=== PATIENT | female | born 1970 | race American Indian/Alaskan Native ===

== ENCOUNTER 2017-02-27 20:31 | Emergency (ER) | payer MEDICAID ==
[2017-02-27] MEDS ORDERED: MORPHINE IV ONE (23:17)
[2017-02-27] MEDS ORDERED: ZOFRAN IV ONE (23:18)
[2017-02-27 23:23] LABS: Hematocrit 40.5 % (30.3-42.9); Hemoglobin 13.6 gm/dl (10.1-14.3); Mean Corpuscular HGB Conc 34 % (30-34); Mean Corpuscular Hemoglobin 32 pg (28-32); Mean Corpuscular Volume 96 fl (79-97); Platelet Count 213 K/mm3 (140-440); Red Blood Count 4.21 M/mm3 (3.65-5.03); Red Cell Distribution Width 13.2 % (13.2-15.2); White Blood Count 4.6 K/mm3 (4.5-11.0)
--- NOTE | 2017-02-27 23:28 | Emergency Department Report ---
ED Neck Pain/Injury HPI - General Chief Complaint: Neck Pain/Injury Stated Complaint: NECK/BACK PAIN, NAUSEA AND VOMITING Time Seen by Provider: 02/27/17 23:09 Mode of arrival: Ambulatory Limitations: No Limitations - History of Present Illness Initial Comments: 47-year-old female with a past medical history CHF EF 15-20%, CVA, CAD with stent placement, defibrillator 2009, and hypertension presents to the hospital complains of neck, back pain, nausea, and vomiting since 6:00 this a.m. Patient woke up with these symptoms. Pain is at the right posterior neck and extends down to the right posterior thorax and right side of back. Pain is constant, sharp and pressure-like. Worse with movement and palpation. 10/10 intensity. No alleviating factors. Patient has taken Tylenol for pain without significant relief. The pain is severe she has associated nausea and vomiting. She does have some episodes of feeling like the room is spinning. No complaints of focal weakness, numbness, or headache. - Related Data Home Medications Medication Instructions Recorded Confirmed Last Taken Aspirin [Aspirin TAB] 325 mg PO DAILY 02/23/14 05/15/16 07/25/15 325 MG Clopidogrel Bisulfate [Plavix] 75 mg PO DAILY 02/23/14 05/15/16 07/25/15 75 MG Isosorbide Mononitrate 60 mg PO BID 02/23/14 05/15/16 07/25/15 60 MG Potassium Chloride 10 meq PO BID 02/23/14 05/15/16 07/25/15 10 MEQ Losartan [Cozaar] 50 mg PO QDAY 07/06/14 05/15/16 07/25/15 50 MG Previous Rx's Medication Instructions Recorded Last Taken Type AtorvaSTATin [Lipitor] 40 mg PO QHS #30 tablet 07/27/15 Unknown Rx Carvedilol [Coreg] 3.125 mg PO BID #60 tablet 07/27/15 Unknown Rx Cyanocobalamin/Folic Acid [B-12 1 each SL QDAY #30 tab.subl 07/27/15 Unknown Rx 1,000 Mcg Sub Tablet] Folic Acid [Folvite] 1 mg PO QDAY #30 tablet 07/27/15 Unknown Rx Tramadol HCl/Acetaminophen 1 each PO Q6H PRN #15 tablet 07/27/15 Unknown Rx [Ultracet] HYDROcodone/APAP 5-325 [[place] 1 each PO Q6HR PRN #15 tablet 08/31/15 Unknown Rx 5/325] Dicyclomine [Bentyl] 10 mg PO QID PRN #20 capsule 05/16/16 Unknown Rx Potassium Chloride [Klor-Con] 20 meq PO QDAY #10 packet 05/16/16 Unknown Rx Ondansetron [Zofran Odt] 4 mg PO QID PRN #20 tab.rapdis 02/28/17 Unknown Rx methOCARBAMOL [Robaxin TAB] 500 mg PO BID PRN #20 tab 02/28/17 Unknown Rx oxyCODONE /ACETAMINOPHEN [Percocet 1 tab PO Q6HR PRN #20 tablet 02/28/17 Unknown Rx 5/325] Allergies Allergy/AdvReac Type Severity Reaction Status Date / Time No Known Allergies Allergy Verified 07/06/14 09:55 ED Review of Systems ROS: Stated complaint: NECK/BACK PAIN, NAUSEA AND VOMITING Other details as noted in HPI Comment: All other systems reviewed and negative Other: Constitutional: No fevers chills Eyes: No eye pain visual changes ENT: No ear pain or throat pain Neck: As per HPI Respiratory: Denies cough wheezing shortness of breath Cardiovascular: Denies chest pain, palpitations, syncope GI: Denies abdominal pain, diarrhea : Denies dysuria Musculoskeletal: As per HPI Skin: Denies rash, lesions, erythema Neurologic: Denies headache, numbness, weakness Psychiatric: Denies suicidal ideation, hallucinations ED Past Medical Hx - Past Medical History Hx Hypertension: Yes (EF 15-20%) Hx CVA: Yes (2014, no deficits) Hx Heart Attack/AMI: Yes Hx Congestive Heart Failure: Yes Hx Renal Disease: No Hx Asthma: No Hx COPD: No - Surgical History Hx Pacemaker: Yes Hx Internal Defibrillator: Yes Additional Surgical History: stent x 1, placed in 2008. Defribrilator - Social History Smoking Status: Never Smoker Substance Use Type: None - Medications Home Medications: Home Medications Medication Instructions Recorded Confirmed Last Taken Type Aspirin [Aspirin TAB] 325 mg PO DAILY 02/23/14 05/15/16 07/25/15 History 325 MG Clopidogrel Bisulfate [Plavix] 75 mg PO DAILY 02/23/14 05/15/16 07/25/15 History 75 MG Isosorbide Mononitrate 60 mg PO BID 04/07/3105/15/16 07/25/15 History 60 MG Potassium Chloride 10 meq PO BID 02/23/14 05/15/16 07/25/15 History 10 MEQ Losartan [Cozaar] 50 mg PO QDAY 07/06/14 05/15/16 07/25/15 History 50 MG AtorvaSTATin [Lipitor] 40 mg PO QHS #30 tablet 07/27/15 05/15/16 Unknown Rx Carvedilol [Coreg] 3.125 mg PO BID #60 tablet 07/27/15 05/15/16 Unknown Rx Cyanocobalamin/Folic Acid [B-12 1 each SL QDAY #30 tab.subl 07/27/15 05/15/16 Unknown Rx 1,000 Mcg Sub Tablet] Folic Acid [Folvite] 1 mg PO QDAY #30 tablet 07/27/15 05/15/16 Unknown Rx Tramadol HCl/Acetaminophen 1 each PO Q6H PRN #15 tablet 07/27/15 05/15/16 Unknown Rx [Ultracet] HYDROcodone/APAP 5-325 [[place] 1 each PO Q6HR PRN #15 tablet 08/31/15 05/15/16 Unknown Rx 5/325] Dicyclomine [Bentyl] 10 mg PO QID PRN #20 capsule 05/16/16 Unknown Rx Potassium Chloride [Klor-Con] 20 meq PO QDAY #10 packet 05/16/16 Unknown Rx Ondansetron [Zofran Odt] 4 mg PO QID PRN #20 tab.rapdis 02/28/17 Unknown Rx methOCARBAMOL [Robaxin TAB] 500 mg PO BID PRN #20 tab 02/28/17 Unknown Rx oxyCODONE /ACETAMINOPHEN [Percocet 1 tab PO Q6HR PRN #20 tablet 02/28/17 Unknown Rx 5/325] ED Physical Exam - General Limitations: No Limitations - Other Other exam information: General: No limitations, patient is alert in no acute distress Head exam: Atraumatic, normocephalic Eyes exam: Normal appearance, no nystagmus ENT: Moist mucous membrane Neck exam: Tenderness to the right posterior neck muscles/trapezius extending down to the shoulder. Also tenderness along right posterior thorax and paracervical lumbar spinous muscles. Neck pain worse with movement Respiratory exam: Clear to auscultation bilateral, no wheezes, rales, crackles Cardiovascular: Normal rate and rhythm, normal heart sounds Abdomen: Soft, nondistended, and nontender, with normal bowel sounds, no rebound, or guarding Extremity: Full range of motion normal inspection no deformity Back: Normal Inspection, full range of motion, see neck exam Neurologic: Alert, oriented x3, cranial nerves intact, no motor or sensory deficit, [id number] function intact Psychiatric: normal affect, normal mood Skin: Warm, dry, intact ED Course Vital Signs 02/27/17 02/28/17 02/28/17 22:11 00:25 02:24 Temperature 98.2 F 98.1 F Pulse Rate 82 74 Respiratory 20 20 20 Rate Blood Pressure 137/95 Blood Pressure 137/95 139/86 [Left] O2 Sat by Pulse 99 100 100 Oximetry - Reevaluation(s) Reevaluation #1: 02/28/17 04:27 Patient initially received morphine, and Zofran with minimal improvement in pain. Pain fairly improved after receiving Dilaudid 1 mg 02/28/17 04:27 ED Medical Decision Making - Lab Data Result diagrams: 02/27/17 22:48 02/27/17 22:48 Lab Results 02/27/17 02/27/17 02/27/17 Range/Units 22:48 22:48 23:10 WBC 4.6 (4.5-11.0) K/mm3 RBC 4.21 (3.65-5.03) M/mm3 Hgb 13.6 (10.1-14.3) gm/dl Hct 40.5 (30.3-42.9) % MCV 96 (79-97) fl MCH 32 (28-32) pg MCHC 34 (30-34) % RDW 13.2 (13.2-15.2) % Plt Count 213 (140-440) K/mm3 Lymph % (Auto) Project Management Add Manual Diff Complete Total Counted 100 Seg Neutrophils % Project Management Seg Neuts % (Manual) 33.0 L (40.0-70.0) % Band Neutrophils % 3.0 % Lymphocytes % (Manual) 51.0 H (13.4-35.0) % Reactive Lymphs % (Man) 0 % Monocytes % (Manual) 7.0 (0.0-7.3) % Eosinophils % (Manual) 4.0 (0.0-4.3) % Basophils % (Manual) 0 (0.0-1.8) % Metamyelocytes % 2.0 % Myelocytes % 0 % Promyelocytes % 0 % Blast Cells % 0 % Nucleated RBC % Not Reportable Seg Neutrophils # Man 1.5 L (1.8-7.7) K/mm3 Band Neutrophils # 0.1 K/mm3 Lymphocytes # (Manual) 2.3 (1.2-5.4) K/mm3 Abs React Lymphs (Man) 0.0 K/mm3 Monocytes # (Manual) 0.3 (0.0-0.8) K/mm3 Eosinophils # (Manual) 0.2 (0.0-0.4) K/mm3 Basophils # (Manual) 0.0 (0.0-0.1) K/mm3 Metamyelocytes # 0.1 K/mm3 Myelocytes # 0.0 K/mm3 Promyelocytes # 0.0 K/mm3 Blast Cells # 0.0 K/mm3 WBC Morphology Not Reportable Hypersegmented Neuts Not Reportable Hyposegmented Neuts Not Reportable Hypogranular Neuts Not Reportable Smudge Cells Not Reportable Toxic Granulation Not Reportable Toxic Vacuolation Not Reportable Dohle Bodies Not Reportable Pelger-Huet Anomaly Not Reportable Federico Rods Not Reportable Platelet Estimate Appears normal Clumped Platelets Not Reportable Plt Clumps, EDTA Not Reportable Large Platelets Not Reportable Giant Platelets Not Reportable Platelet Satelliting Not Reportable Plt Morphology Comment Not Reportable RBC Morphology Not Reportable Dimorphic RBCs Not Reportable Polychromasia Not Reportable Hypochromasia Rare Poikilocytosis Not Reportable Anisocytosis Not Reportable Microcytosis Not Reportable Macrocytosis Not Reportable Spherocytes Not Reportable Pappenheimer Bodies Not Reportable Sickle Cells Not Reportable Target Cells Not Reportable Tear Drop Cells Not Reportable Ovalocytes Not Reportable Helmet Cells Not Reportable Jean-Knox Bodies Not Reportable [place] Rings Not Reportable Glenna Cells Not Reportable Bite Cells Not Reportable Crenated Cell Not Reportable Elliptocytes Not Reportable Acanthocytes (Spur) Not Reportable Rouleaux Not Reportable Hemoglobin C Crystals Not Reportable Schistocytes Not Reportable Malaria parasites Not Reportable Cornelio Bodies Not Reportable Hem Pathologist Commnt No Sodium 138 (137-145) mmol/L Potassium 3.7 (3.6-5.0) mmol/L Chloride 104.3 (98-107) mmol/L Carbon Dioxide 23 (22-30) mmol/L Anion Gap 14 mmol/L BUN 7 (7-17) mg/dL Creatinine 0.7 (0.7-1.2) mg/dL Estimated GFR > 60 ml/min BUN/Creatinine Ratio 10.00 % Glucose 93 (65-100) mg/dL Calcium 8.9 (8.4-10.2) mg/dL Total Bilirubin < 0.2 (0.1-1.2) mg/dL Direct Bilirubin < 0.2 (0-0.2) mg/dL Indirect Bilirubin 0.0 mg/dL AST 13 (5-40) units/L ALT 8 (7-56) units/L Alkaline Phosphatase 69 (35-129) units/L Troponin T < 0.010 (0.00-0.029) ng/mL Total Protein 6.6 (6.3-8.2) g/dL Albumin 3.5 L (3.9-5) g/dL Albumin/Globulin Ratio 1.1 % Lipase 27 (13-60) units/L Urine Color (Yellow) Urine Turbidity (Clear) Urine pH (5.0-7.0) Urine Protein (Negative) mg/dL Urine Glucose (UA) (Negative) mg/dL Urine Ketones (Negative) mg/dL Urine Blood (Negative) Urine Nitrite (Negative) Ur Reducing Substances Urine Bilirubin (Negative) Urine Ictotest Urine Urobilinogen (<2.0) mg/dL Ur Leukocyte Esterase (Negative) Urine WBC (Auto) (0.0-6.0) /HPF Urine RBC (Auto) (0.0-6.0) /HPF U Epithel Cells (Auto) (0-13.0) /HPF Urine Mucus /HPF Urine HCG, Qual (Negative) 02/28/17 02/28/17 Range/Units 02:50 03:40 WBC (4.5-11.0) K/mm3 RBC (3.65-5.03) M/mm3 Hgb (10.1-14.3) gm/dl Hct (30.3-42.9) % MCV (79-97) fl MCH (28-32) pg MCHC (30-34) % RDW (13.2-15.2) % Plt Count (140-440) K/mm3 Lymph % (Auto) Add Manual Diff Total Counted Seg Neutrophils % Seg Neuts % (Manual) (40.0-70.0) % Band Neutrophils % % Lymphocytes % (Manual) (13.4-35.0) % Reactive Lymphs % (Man) % Monocytes % (Manual) (0.0-7.3) % Eosinophils % (Manual) (0.0-4.3) % Basophils % (Manual) (0.0-1.8) % Metamyelocytes % % Myelocytes % % Promyelocytes % % Blast Cells % % Nucleated RBC % Seg Neutrophils # Man (1.8-7.7) K/mm3 Band Neutrophils # K/mm3 Lymphocytes # (Manual) (1.2-5.4) K/mm3 Abs React Lymphs (Man) K/mm3 Monocytes # (Manual) (0.0-0.8) K/mm3 Eosinophils # (Manual) (0.0-0.4) K/mm3 Basophils # (Manual) (0.0-0.1) K/mm3 Metamyelocytes # K/mm3 Myelocytes # K/mm3 Promyelocytes # K/mm3 Blast Cells # K/mm3 WBC Morphology Hypersegmented Neuts Hyposegmented Neuts Hypogranular Neuts Smudge Cells Toxic Granulation Toxic Vacuolation Dohle Bodies Pelger-Huet Anomaly Federico Rods Platelet Estimate Clumped Platelets Plt Clumps, EDTA Large Platelets Giant Platelets Platelet Satelliting Plt Morphology Comment RBC Morphology Dimorphic RBCs Polychromasia Hypochromasia Poikilocytosis Anisocytosis Microcytosis Macrocytosis Spherocytes Pappenheimer Bodies Sickle Cells Target Cells Tear Drop Cells Ovalocytes Helmet Cells Jean-Knox Bodies [place] Rings Glenna Cells Bite Cells Crenated Cell Elliptocytes Acanthocytes (Spur) Rouleaux Hemoglobin C Crystals Schistocytes Malaria parasites Cornelio Bodies Hem Pathologist Commnt Sodium (137-145) mmol/L Potassium (3.6-5.0) mmol/L Chloride (98-107) mmol/L Carbon Dioxide (22-30) mmol/L Anion Gap mmol/L BUN (7-17) mg/dL Creatinine (0.7-1.2) mg/dL Estimated GFR ml/min BUN/Creatinine Ratio % Glucose (65-100) mg/dL Calcium (8.4-10.2) mg/dL Total Bilirubin (0.1-1.2) mg/dL Direct Bilirubin (0-0.2) mg/dL Indirect Bilirubin mg/dL AST (5-40) units/L ALT (7-56) units/L Alkaline Phosphatase (35-129) units/L Troponin T < 0.010 (0.00-0.029) ng/mL Total Protein (6.3-8.2) g/dL Albumin (3.9-5) g/dL Albumin/Globulin Ratio % Lipase (13-60) units/L Urine Color Yellow (Yellow) Urine Turbidity Clear (Clear) Urine pH 5.0 (5.0-7.0) Urine Protein <15 mg/dl (Negative) mg/dL Urine Glucose (UA) Neg (Negative) mg/dL Urine Ketones Neg (Negative) mg/dL Urine Blood Mod (Negative) Urine Nitrite Neg (Negative) Ur Reducing Substances Not Reportable Urine Bilirubin Neg (Negative) Urine Ictotest Not Reportable Urine Urobilinogen < 2.0 (<2.0) mg/dL Ur Leukocyte Esterase Neg (Negative) Urine WBC (Auto) 2.0 (0.0-6.0) /HPF Urine RBC (Auto) 28.0 (0.0-6.0) /HPF U Epithel Cells (Auto) 3.0 (0-13.0) /HPF Urine Mucus Few /HPF Urine HCG, Qual Negative (Negative) - EKG Data -: EKG Interpreted by Me (sinus rhythm 80 septal infarct, no ST elevation or T- wave inversions) - EKG Data When compared to previous EKG there are: no significant change (compared to 02/2013) - Radiology Data Radiology results: report reviewed CT head non-contrast: No acute findings A CT angiogram head: No acute findings CT angiogram neck: No acute findings chest x-ray: Pacemaker/defibrillator, no acute findings read by me - Medical Decision Making I highly suspect the patient's pain is musculoskeletal in origin since it is right sided along the right lateral neck, right sided posterior thoracic chest, and right sided back. Symptoms appear to be reproducible with movement and palpation. No signs of carotid dissection or CVA. Patient has some blood in her urine but is currently on her menstrual cycle. No signs of infection. Patient given a copy of her CAT scan results per her request - Differential Diagnosis musculoskeletal injury, dissection, renal colic, vertigo, Critical Care Time: No Critical care attestation.: If time is entered above; I have spent that time in minutes in the direct care of this critically ill patient, excluding procedure time. ED Disposition Clinical Impression: Neck muscle strain Qualifiers: Encounter type: initial encounter Qualified Code(s): S16.1XXA - Strain of muscle, fascia and tendon at neck level, initial encounter Back strain Qualifiers: Encounter type: initial encounter Qualified Code(s): S39.012A - Strain of muscle, fascia and tendon of lower back, initial encounter Vomiting Qualifiers: Vomiting type: unspecified Vomiting Intractability: non-intractable Nausea presence: with nausea Qualified Code(s): R11.2 - Nausea with vomiting, unspecified Disposition: DISCHARGED TO HOME OR SELFCARE Is pt being admited?: No Does the pt Need Aspirin: No Condition: Stable Instructions: Cervical Sprain (ED), Back Pain (ED) Additional Instructions: Take the pain medication and muscle relaxants as prescribed. You cannot drive or operate heavy machinery while Percocet or Robaxin cause both these medications may cause drowsiness. Follow-up with your doctor. Return if symptoms worsen. Prescriptions: methOCARBAMOL [Robaxin TAB] 500 mg PO BID PRN #20 tab PRN Reason: Muscle Spasm Ondansetron [Zofran Odt] 4 mg PO QID PRN #20 tab.rapdis PRN Reason: Nausea oxyCODONE /ACETAMINOPHEN [Percocet 5/325] 1 tab PO Q6HR PRN #20 tablet PRN Reason: Pain Referrals: PRIMARY CARE, [Primary Care Provider] - 2-3 Days Time of Disposition: 04:34
[2017-02-27 23:35] LABS: Anion Gap 14 mmol/L; Blood Urea Nitrogen 7 mg/dL (7-17); Calcium 8.9 mg/dL (8.4-10.2); Carbon Dioxide 23 mmol/L (22-30); Chloride 104.3 mmol/L (98-107); Glucose 93 mg/dL (65-100); Potassium 3.7 mmol/L (3.6-5.0); Sodium 138 mmol/L (137-145)
[2017-02-27 23:46] LABS: Alanine Aminotransferase 8 units/L (7-56); Albumin 3.5 g/dL (3.9-5); Albumin/Globulin Ratio 1.1 %; Alkaline Phosphatase 69 units/L (35-129); Bilirubin,Total < 0.2 mg/dL (0.1-1.2); Lipase 27 units/L (13-60); Total Protein 6.6 g/dL (6.3-8.2)
[2017-02-27 23:49] LABS: Bilirubin,Direct < 0.2 mg/dL (0-0.2)
[2017-02-28 00:21] LABS: Basophils % (Manual) 0 % (0.0-1.8); Blastocytes % (Manual) 0 %
[2017-02-28 00:22] LABS: Diff Status Complete; Hypochromasia Rare
[2017-02-28] MEDS ORDERED: NACL ONE (00:29)
--- NOTE | 2017-02-28 01:43 | Cat Scan Report ---
FINAL REPORT PROCEDURE: CT HEAD/BRAIN WO CON TECHNIQUE: Computerized tomography of the head was performed without contrast material. HISTORY: neck pain, vomiting, dizziness hx cva 2014 COMPARISON: 07/25/2010 FINDINGS: Skull and scalp: Normal. Paranasal sinuses: Normal. Ventricles and subarachnoid spaces: Normal. Cerebrum: No evidence of hemorrhage, acute infarction or mass . Cerebellum and brainstem: No evidence of hemorrhage, acute infarction or mass. Vasculature: Normal. Comments: None. IMPRESSION: Normal Examination
[2017-02-28 02:26] VITALS: BP 139/86
--- NOTE | 2017-02-28 02:27 | Cat Scan Report ---
FINAL REPORT PROCEDURE: CT ANGIO HEAD TECHNIQUE: Computerized tomographic angiography of the head was performed after the IV injection of iodinated nonionic contrast including image processing. The image data was postprocessed using 2-dimensional multiplanar reformatted (MPR) and 3-dimensional (MIP and/or volume rendered) techniques. HISTORY: neck pain, vomiting, dizziness COMPARISON: CT of the head dated 02/28/2016 FINDINGS: Cerebrum: No evidence of hemorrhage, acute ischemia or mass. Cerebellum: No evidence of hemorrhage, acute ischemia or mass. Subarachnoid spaces and ventricles: Normal. Intracranial vessels: Carotid siphon: Normal. Anterior cerebral: Normal. Middle cerebral: Normal. Posterior cerebral:Normal. Vertebral arteries including basilar: Normal. Aneurysms: None. Dural sinuses: Normal. IMPRESSION: There is no intracranial arterial stenosis, thrombosis, dissection or aneurysm. There is no vascular malformation. The dural sinuses are patent.
--- NOTE | 2017-02-28 02:29 | Cat Scan Report ---
FINAL REPORT PROCEDURE: CT ANGIO NECK TECHNIQUE: Computerized tomographic angiography of the neck was performed after the IV injection of iodinated nonionic contrast including image processing. The image data was postprocessed using 2-dimensional multiplanar reformatted (MPR) and 3-dimensional (MIP and/or volume rendered) techniques. HISTORY: neck pain, vomiting, dizziness COMPARISON: No prior studies are available for comparison. Note: Assessment of carotid artery stenosis is based on measurement of the distal internal carotid artery diameter as the denominator for stenosis calculations and the [place] Symptomatic Carotid Endarterectomy Trial (NASCET) stenosis criteria . CPT 3100F FINDINGS: Sinuses: Normal . Non vascular cervical structures: No significant abnormality . Aortic arch: Normal . Right carotid artery: Normal . Left carotid artery: Normal . Vertebral arteries: Normal . IMPRESSION: There is no arterial stenosis, thrombosis or dissection.
[2017-02-28] MEDS ORDERED: DILAUDID IV ONE (02:31)
[2017-02-28 04:06] LABS: Bilirubin,Urine NEG (Negative); Blood,Urine MOD (Negative); Ketones,Urine NEG (Negative); Leukocyte Esterase,Urine NEG (Negative); Mucus,Urine FEW /HPF; Nitrite,Urine NEG (Negative); Protein,Urine <15 mg/dL mg/dL (Negative); Urobilinogen,Urine < 2.0 mg/dL (<2.0)
--- NOTE | 2017-02-28 07:36 | XRay Report ---
ROUTINE CHEST, TWO VIEWS: HISTORY: Right chest pain. The trachea, heart, mediastinal contour, lung harrell and bony thorax are unremarkable. The 2-lead pacemaker device remains in good position. No change since 05/15/16. IMPRESSION: Unremarkable chest x-ray.
== END 2017-02-28 05:00 | disposition home or self-care (01) ==
LOC: ED 20:31
DX: S16.1XXA Strain of muscle, fascia and tendon at neck level, initial encounter (principal); S39.012A Strain of muscle, fascia and tendon of lower back, initial encounter; R11.2 Nausea with vomiting, unspecified; I10 Essential (primary) hypertension; I63.9 Cerebral infarction, unspecified; I25.2 Old myocardial infarction; I50.9 Heart failure, unspecified; Z79.82 Long term (current) use of aspirin
CPT/HCPCS: 36415; 70450; 70496; 70498; 71020; 80048; 80074; 81001; 81025; 83690; 84484; 85007; 85025; 93005; 93010; 96374; 96375; 99285; J1170; J2270; J2405; Q9967

== ENCOUNTER 2017-11-19 15:32 | Emergency (ER) | payer MEDICAID ==
[2017-11-19 18:16] LABS: Basophils % (Auto) 0.9 % (0.0-1.8); Eosinophils % (Auto) 0.2 % (0.0-4.3); Hematocrit 38.2 % (30.3-42.9); Hemoglobin 13.2 gm/dl (10.1-14.3); Lymphocytes # (Auto) 1.7 K/mm3 (1.2-5.4); Lymphocytes % (Auto) 33.4 % (13.4-35.0); Mean Corpuscular HGB Conc 35 % (30-34); Mean Corpuscular Hemoglobin 33 pg (28-32); Mean Corpuscular Volume 95 fl (79-97); Monocytes # (Auto) 0.3 K/mm3 (0.0-0.8); Monocytes % (Auto) 6.8 % (0.0-7.3); Platelet Count 236 K/mm3 (140-440); Red Blood Count 4.03 M/mm3 (3.65-5.03); Red Cell Distribution Width 14.1 % (13.2-15.2)
[2017-11-19 18:31] LABS: INR 1.06 (0.87-1.13)
[2017-11-19 18:32] LABS: BUN/Creatinine Ratio 12; Blood Urea Nitrogen 7 mg/dL (7-17); Calcium 9.1 mg/dL (8.4-10.2); Hemolysis Index 8; Partial Thromboplastin Time 28.9 Sec. (24.2-36.6)
[2017-11-19] MEDS ORDERED: MORPHINE IV ONE (18:33)
--- NOTE | 2017-11-19 18:59 | XRay Report ---
FINAL REPORT EXAM: XR CHEST 1V AP HISTORY: Chest pain TECHNIQUE: AP portable view of the chest PRIORS: None. FINDINGS: Lines, tubes, and devices: Dual lead left subclavian pacemaker terminates in the right atrium and right ventricle. Lungs and pleura: Trachea is normal in position. Lungs are clear of infiltrate, pleural effusion, vascular congestion, or pneumothorax. Cardiomediastinal silhouette: Cardiac silhouette is prominent in view of the projection. Other: Bony structures are intact. IMPRESSION: No acute cardiopulmonary process seen.
[2017-11-19] MEDS ORDERED: K-DUR PO ONE (19:20)
[2017-11-19 20:35] VITALS: BP 113/68
[2017-11-19] MEDS ORDERED: MILK OF MAGNESIA PO ONE (20:40)
[2017-11-19] MEDS ORDERED: LIDOCAINE VISCOUS 2% PO ONE (20:40)
[2017-11-19] MEDS ORDERED: POTASSIUM CHLORIDE FEEDTUBE ONE (21:00)
[2017-11-19] MEDS ORDERED: ZOFRAN ONE (21:09)
[2017-11-19] MEDS ORDERED: ZOFRAN IV ONE (21:13)
--- NOTE | 2017-11-19 22:23 | Emergency Department Report ---
ED Chest Pain HPI - General Chief Complaint: Chest Pain Stated Complaint: CHEST PAIN Time Seen by Provider: 11/19/17 16:48 Source: EMS Mode of arrival: Stretcher Limitations: No Limitations - History of Present Illness Initial Comments: Patient with known CAD having left sided chest pain for 2 days. Also had N/V. PCP is Dr. Griffin. Had IA in with defib placed and h/o CVA , and has HL. Patient got no relief with nitro x 3 and morphine barely helped. MD Complaint: chest pain -: Gradual, Last night Onset: during rest Pain Location: left chest Pain Radiation: none Severity: severe Severity scale (0 -10): 10 Quality: tightness, sharp Improves With: nothing Worsens With: nothing re: nausea, vomting Treatments Prior to Arrival: none - Related Data Home Medications Medication Instructions Recorded Confirmed Last Taken Aspirin [Aspirin TAB] 325 mg PO DAILY 02/23/14 05/15/16 07/25/15 325 MG Clopidogrel Bisulfate [Plavix] 75 mg PO DAILY 02/23/14 05/15/16 07/25/15 75 MG Isosorbide Mononitrate 60 mg PO BID 02/23/14 05/15/16 07/25/15 60 MG Potassium Chloride 10 meq PO BID 02/23/14 05/15/16 07/25/15 10 MEQ Losartan [Cozaar] 50 mg PO QDAY 07/06/14 05/15/16 07/25/15 50 MG Previous Rx's Medication Instructions Recorded Last Taken Type AtorvaSTATin [Lipitor] 40 mg PO QHS #30 tablet 07/27/15 Unknown Rx Carvedilol [Coreg] 3.125 mg PO BID #60 tablet 07/27/15 Unknown Rx Cyanocobalamin/Folic Acid [B-12 1 each SL QDAY #30 tab.subl 07/27/15 Unknown Rx 1,000 Mcg Sub Tablet] Folic Acid [Folvite] 1 mg PO QDAY #30 tablet 07/27/15 Unknown Rx Tramadol HCl/Acetaminophen 1 each PO Q6H PRN #15 tablet 07/27/15 Unknown Rx [Ultracet] HYDROcodone/APAP 5-325 [[place] 1 each PO Q6HR PRN #15 tablet 08/31/15 Unknown Rx 5/325] Dicyclomine [Bentyl] 10 mg PO QID PRN #20 capsule 05/16/16 Unknown Rx Potassium Chloride [Klor-Con] 20 meq PO QDAY #10 packet 05/16/16 Unknown Rx Ondansetron [Zofran Odt] 4 mg PO QID PRN #20 tab.rapdis 02/28/17 Unknown Rx methOCARBAMOL [Robaxin TAB] 500 mg PO BID PRN #20 tab 02/28/17 Unknown Rx oxyCODONE /ACETAMINOPHEN [Percocet 1 tab PO Q6HR PRN #20 tablet 02/28/17 Unknown Rx 5/325] Ondansetron [Zofran TAB] 4 mg PO Q8HR PRN #30 tablet 11/19/17 Unknown Rx Sucralfate [Carafate] 1 gm PO Q6HR #120 tablet 11/19/17 Unknown Rx Allergies Allergy/AdvReac Type Severity Reaction Status Date / Time No Known Allergies Allergy Verified 07/06/14 09:55 Heart Score - HEART Score History: Slightly suspicious EKG: Non-specific Age: 45-65 Risk factors: > 3 risk factors or hx of atherosclerotic disease Troponin: < normal limit HEART Score: 4 ED Review of Systems ROS: Stated complaint: CHEST PAIN Other details as noted in HPI Constitutional: denies: chills, fever Eyes: denies: eye pain, eye discharge, vision change ENT: denies: ear pain, throat pain Respiratory: denies: cough, shortness of breath, wheezing Cardiovascular: chest pain. denies: palpitations Endocrine: no symptoms reported Gastrointestinal: denies: abdominal pain, nausea, diarrhea Genitourinary: denies: urgency, dysuria, discharge Musculoskeletal: denies: back pain, joint swelling, arthralgia Skin: denies: rash, lesions Neurological: denies: headache, weakness, paresthesias Psychiatric: denies: anxiety, depression Hematological/Lymphatic: denies: easy bleeding, easy bruising ED Past Medical Hx - Past Medical History Hx Hypertension: Yes (EF 15-20%) Hx CVA: Yes (2014, no deficits) Hx Heart Attack/AMI: Yes Hx Congestive Heart Failure: Yes Hx Renal Disease: No Hx Asthma: No Hx COPD: No - Surgical History Hx Coronary Stent: Yes Hx Pacemaker: Yes Hx Internal Defibrillator: Yes Additional Surgical History: stent x 1, placed in 2008. Defribrilator - Social History Smoking Status: Never Smoker Substance Use Type: None - Medications Home Medications: Home Medications Medication Instructions Recorded Confirmed Last Taken Type Aspirin [Aspirin TAB] 325 mg PO DAILY 02/23/14 05/15/16 07/25/15 History 325 MG Clopidogrel Bisulfate [Plavix] 75 mg PO DAILY 02/23/14 05/15/16 07/25/15 History 75 MG Isosorbide Mononitrate 60 mg PO BID 02/23/14 05/15/16 07/25/15 History 60 MG Potassium Chloride 10 meq PO BID 02/23/14 05/15/16 07/25/15 History 10 MEQ Losartan [Cozaar] 50 mg PO QDAY 07/06/14 05/15/16 07/25/15 History 50 MG AtorvaSTATin [Lipitor] 40 mg PO QHS #30 tablet 07/27/15 05/15/16 Unknown Rx Carvedilol [Coreg] 3.125 mg PO BID #60 tablet 07/27/15 05/15/16 Unknown Rx Cyanocobalamin/Folic Acid [B-12 1 each SL QDAY #30 tab.subl 07/27/15 05/15/16 Unknown Rx 1,000 Mcg Sub Tablet] Folic Acid [Folvite] 1 mg PO QDAY #30 tablet 07/27/15 05/15/16 Unknown Rx Tramadol HCl/Acetaminophen 1 each PO Q6H PRN #15 tablet 07/27/15 05/15/16 Unknown Rx [Ultracet] HYDROcodone/APAP 5-325 [[place] 1 each PO Q6HR PRN #15 tablet 08/31/15 05/15/16 Unknown Rx 5/325] Dicyclomine [Bentyl] 10 mg PO QID PRN #20 capsule 05/16/16 Unknown Rx Potassium Chloride [Klor-Con] 20 meq PO QDAY #10 packet 05/16/16 Unknown Rx Ondansetron [Zofran Odt] 4 mg PO QID PRN #20 tab.rapdis 02/28/17 Unknown Rx methOCARBAMOL [Robaxin TAB] 500 mg PO BID PRN #20 tab 02/28/17 Unknown Rx oxyCODONE /ACETAMINOPHEN [Percocet 1 tab PO Q6HR PRN #20 tablet 02/28/17 Unknown Rx 5/325] Ondansetron [Zofran TAB] 4 mg PO Q8HR PRN #30 tablet 11/19/17 Unknown Rx Sucralfate [Carafate] 1 gm PO Q6HR #120 tablet 11/19/17 Unknown Rx ED Physical Exam - General Limitations: No Limitations General appearance: alert, in no apparent distress - Head Head exam: Present: atraumatic, normocephalic - Eye Eye exam: Present: normal appearance - ENT ENT exam: Present: mucous membranes moist - Neck Neck exam: Present: normal inspection - Respiratory Respiratory exam: Present: normal lung sounds bilaterally. Absent: respiratory distress - Cardiovascular Cardiovascular Exam: Present: regular rate, normal rhythm. Absent: systolic murmur, diastolic murmur, rubs, gallop - GI/Abdominal GI/Abdominal exam: Present: soft, normal bowel sounds - Extremities Exam Extremities exam: Present: normal inspection - Back Exam Back exam: Present: normal inspection - Neurological Exam Neurological exam: Present: alert, oriented X3 - Psychiatric Psychiatric exam: Present: normal affect, normal mood - Skin Skin exam: Present: warm, dry, intact, normal color. Absent: rash ED Course Vital Signs 11/19/17 11/19/17 11/19/17 16:28 17:17 19:32 Temperature 98.4 F 98.5 F Pulse Rate 61 64 Respiratory 16 20 18 Rate Blood Pressure 101/65 Blood Pressure 101/65 113/68 [Right] O2 Sat by Pulse 99 100 Oximetry TIKA score - Tika Score Age > 65: (0) No Aspirin use within the Past 7 Days: (1) Yes 3 or more CAD Risk Factors: (1) Yes 2 or more Angina events in past 24 hrs: (0) No Known CAD with more than 50% Stenosis: (1) Yes Elevated Cardiac Markers: (0) No ST Deviation Greater than 0.5mm: (0) No TIKA Score: 3 ED Medical Decision Making - Lab Data Result diagrams: 11/19/17 17:46 11/19/17 17:46 Patient with hypokalemia and has a history of hypokalemia. Otherwise labs are unremarkable. Troponin negative x 2. - EKG Data -: EKG Interpreted by Ar EKG shows normal: sinus rhythm, intervals (prolonged QT), ST-T waves (non- specific changes.) Rate: normal - EKG Data Interpretation: no acute changes - Radiology Data Radiology results: report reviewed No acute process. - Medical Decision Making Patient with Chest pain that was finally relieved by a GI cocktail. While she has increased risk for coronary disease and ACS she has esophagitis by exam and treatment. She will be sent home with carafate and stop her caffeine, spicy foods and fried fatty foods. She will have zofran as well. For her hypokalemia she will recheck on Friday with her PCP. I requested to have us recheck and she refused. Critical care attestation.: If time is entered above; I have spent that time in minutes in the direct care of this critically ill patient, excluding procedure time. ED Disposition Clinical Impression: Acute hypokalemia, GERD with esophagitis Chest pain Qualifiers: Chest pain type: other chest pain Qualified Code(s): R07.89 - Other chest pain ; R07.8 - Other chest pain Disposition: TO HOME OR SELFCARE Is pt being admited?: No Does the pt Need Aspirin: No Condition: Good Instructions: Chest Pain (ED), Diet for Ulcers and Gastritis (ED) Prescriptions: Ondansetron [Zofran TAB] 4 mg PO Q8HR PRN #30 tablet PRN Reason: Nausea Sucralfate [Carafate] 1 gm PO Q6HR #120 tablet Referrals: JOSE L FREY MD [Staff Physician] - 3-5 Days Time of Disposition: 22:29
== END 2017-11-19 23:25 | disposition home or self-care (01) ==
LOC: ED 15:32
DX: E87.6 Hypokalemia (principal); K21.0 Gastro-esophageal reflux disease with esophagitis; R07.89 Other chest pain; I10 Essential (primary) hypertension; I63.9 Cerebral infarction, unspecified; I25.2 Old myocardial infarction; Z98.890 Other specified postprocedural states; Z79.82 Long term (current) use of aspirin
CPT/HCPCS: 36415; 71045; 80048; 83690; 83880; 84484; 85025; 85610; 85730; 93005; 93010; 96374; 96375; 99284; J2270; J2405

== ENCOUNTER 2018-12-06 17:01 | Emergency (ER) | payer MEDICAID ==
--- NOTE | 2018-12-06 18:12 | XRay Report ---
FINAL REPORT EXAM: XR ELBOW 3+V LT HISTORY: pain and swelling r/t fall TECHNIQUE: Frontal, lateral and oblique views left elbow Comparison: None FINDINGS: There is no evidence of fracture or subluxation. There is the appearance of mild degenerative change of the humeral ulnar joint with osteophyte format ion. The soft tissues are unremarkable. IMPRESSION: 1. No evidence of fracture or subluxation. 2. Appearance of degenerative change humeral ulnar joint.
--- NOTE | 2018-12-06 18:13 | XRay Report ---
FINAL REPORT EXAM: XR SHOULDER 2+V LT HISTORY: pain/swelling r/t fall TECHNIQUE: Frontal and Y-views left shoulder Comparison: None FINDINGS: There is no evidence of fracture or subluxation. The joint spaces are maintained. The soft tissues are unremarkable. IMPRESSION: 1. No evidence of fracture or subluxation.
[2018-12-06] MEDS ORDERED: PERCOCET 5/325 PO STA (18:26)
--- NOTE | 2018-12-06 19:53 | Emergency Department Report ---
ED Fall HPI - General Chief Complaint: Fall Stated Complaint: FALL/LEFT LEG PAIN Time Seen by Provider: 12/06/18 18:25 Source: patient Mode of arrival: Ambulatory - History of Present Illness Initial Comments: 48-year-old female presents much department status post trip and fall landing on her left side hitting her shoulder and elbow on a laminate floor typesetting resulting in dull throbbing pain, worse with range of motion and palpation. At 11:30 AM today. No loss of consciousness. No head injury, no neck pain MD Complaint: fall -: Gradual Fall Witnessed: no Place Fall Occurred: home Loss of Consciousness: none Prolonged Down Time?: no Symptoms Prior to Fall: none Location - Extremities: Left: Shoulder, Elbow Severity: mild Quality: dull Context: tripped/slipped Associated Symptoms: denies: neck pain, numbness, shortness of breath, abdominal pain, hematuria, unable to walk, lightheaded, vertigo, confusion - Related Data Home Medications Medication Instructions Recorded Confirmed Last Taken Aspirin [Aspirin TAB] 325 mg PO DAILY 02/23/14 05/15/16 07/25/15 325 MG Clopidogrel Bisulfate [Plavix] 75 mg PO DAILY 02/23/14 05/15/16 07/25/15 75 MG Isosorbide Mononitrate 60 mg PO BID 02/23/14 05/15/16 07/25/15 60 MG Potassium Chloride 10 meq PO BID 02/23/14 05/15/16 07/25/15 10 MEQ Losartan [Cozaar] 50 mg PO QDAY 07/06/14 05/15/16 07/25/15 50 MG Previous Rx's Medication Instructions Recorded Last Taken Type AtorvaSTATin [Lipitor] 40 mg PO QHS #30 tablet 07/27/15 Unknown Rx Carvedilol [Coreg] 3.125 mg PO BID #60 tablet 07/27/15 Unknown Rx Cyanocobalamin/Folic Acid [B-12 1 each SL QDAY #30 tab.subl 07/27/15 Unknown Rx 1,000 Mcg Sub Tablet] Folic Acid [Folvite] 1 mg PO QDAY #30 tablet 07/27/15 Unknown Rx Tramadol HCl/Acetaminophen 1 each PO Q6H PRN #15 tablet 07/27/15 Unknown Rx [Ultracet] HYDROcodone/APAP 5-325 [[place] 1 each PO Q6HR PRN #15 tablet 08/31/15 Unknown Rx 5/325] Dicyclomine [Bentyl] 10 mg PO QID PRN #20 capsule 05/16/16 Unknown Rx Potassium Chloride [Klor-Con] 20 meq PO QDAY #10 packet 05/16/16 Unknown Rx Ondansetron [Zofran Odt] 4 mg PO QID PRN #20 tab.rapdis 02/28/17 Unknown Rx methOCARBAMOL [Robaxin TAB] 500 mg PO BID PRN #20 tab 02/28/17 Unknown Rx oxyCODONE /ACETAMINOPHEN [Percocet 1 tab PO Q6HR PRN #20 tablet 02/28/17 Unknown Rx 5/325] Ondansetron [Zofran TAB] 4 mg PO Q8HR PRN #30 tablet 11/19/17 Unknown Rx Sucralfate [Carafate] 1 gm PO Q6HR #120 tablet 11/19/17 Unknown Rx Allergies Allergy/AdvReac Type Severity Reaction Status Date / Time No Known Allergies Allergy Verified 07/06/14 09:55 ED Review of Systems ROS: Stated complaint: FALL/LEFT LEG PAIN Other details as noted in HPI Constitutional: denies: chills, fever Eyes: denies: eye pain, eye discharge, vision change ENT: denies: ear pain, throat pain Respiratory: denies: cough, shortness of breath, wheezing Cardiovascular: denies: chest pain, palpitations Endocrine: no symptoms reported Gastrointestinal: denies: abdominal pain, nausea, diarrhea Genitourinary: denies: urgency, dysuria, discharge Musculoskeletal: arthralgia. denies: back pain, joint swelling Skin: denies: rash, lesions Neurological: denies: headache, weakness, paresthesias Psychiatric: denies: anxiety, depression Hematological/Lymphatic: denies: easy bleeding, easy bruising ED Past Medical Hx - Past Medical History Hx Hypertension: Yes (EF 15-20%) Hx CVA: Yes (2015, no deficits) Hx Heart Attack/AMI: Yes Hx Congestive Heart Failure: Yes Hx Renal Disease: No Hx Asthma: No Hx COPD: No Additional medical history: CVD - Surgical History Hx Coronary Stent: Yes Hx Pacemaker: Yes Hx Internal Defibrillator: Yes Additional Surgical History: stent x 1, placed in 2008. Defribrilator - Social History Smoking Status: Never Smoker Substance Use Type: Alcohol - Medications Home Medications: Home Medications Medication Instructions Recorded Confirmed Last Taken Type Aspirin [Aspirin TAB] 325 mg PO DAILY 02/23/14 05/15/16 07/25/15 History 325 MG Clopidogrel Bisulfate [Plavix] 75 mg PO DAILY 02/23/14 05/15/16 07/25/15 History 75 MG Isosorbide Mononitrate 60 mg PO BID 02/23/14 05/15/16 07/25/15 History 60 MG Potassium Chloride 10 meq PO BID 02/23/14 05/15/16 07/25/15 History 10 MEQ Losartan [Cozaar] 50 mg PO QDAY 07/06/14 05/15/16 07/25/15 History 50 MG AtorvaSTATin [Lipitor] 40 mg PO QHS #30 tablet 07/27/15 05/15/16 Unknown Rx Carvedilol [Coreg] 3.125 mg PO BID #60 tablet 07/27/15 05/15/16 Unknown Rx Cyanocobalamin/Folic Acid [B-12 1 each SL QDAY #30 tab.subl 07/27/15 05/15/16 Unknown Rx 1,000 Mcg Sub Tablet] Folic Acid [Folvite] 1 mg PO QDAY #30 tablet 07/27/15 05/15/16 Unknown Rx Tramadol HCl/Acetaminophen 1 each PO Q6H PRN #15 tablet 07/27/15 05/15/16 Unknown Rx [Ultracet] HYDROcodone/APAP 5-325 [[place] 1 each PO Q6HR PRN #15 tablet 08/31/15 05/15/16 Unknown Rx 5/325] Dicyclomine [Bentyl] 10 mg PO QID PRN #20 capsule 05/16/16 Unknown Rx Potassium Chloride [Klor-Con] 20 meq PO QDAY #10 packet 05/16/16 Unknown Rx Ondansetron [Zofran Odt] 4 mg PO QID PRN #20 tab.rapdis 02/28/17 Unknown Rx methOCARBAMOL [Robaxin TAB] 500 mg PO BID PRN #20 tab 02/28/17 Unknown Rx oxyCODONE /ACETAMINOPHEN [Percocet 1 tab PO Q6HR PRN #20 tablet 02/28/17 Unknown Rx 5/325] Ondansetron [Zofran TAB] 4 mg PO Q8HR PRN #30 tablet 11/19/17 Unknown Rx Sucralfate [Carafate] 1 gm PO Q6HR #120 tablet 11/19/17 Unknown Rx ED Physical Exam - General Limitations: No Limitations General appearance: alert, in no apparent distress - Head Head exam: Present: atraumatic (physical atraumatic. No tenderness, bruising no abrasions, no facial trauma as well. There is normal facial symmetry. Pupils are PERRLA EOMI and icteric. No bleeding from the nasal ear canal is noted. Lungs are clear), normocephalic - Eye Eye exam: Present: normal appearance, PERRL, EOMI Pupils: Present: normal accommodation - ENT ENT exam: Present: normal exam, mucous membranes moist, other (no intraoral trauma. Tongue is is is is normal with no with no lacerations. Airway is patent. Uvula is midline, normal size. No stridor is appreciated. Neck is supple with no with no bruising. Spurling's test is negative. There is full range of motion with no limitations.) - Neck Neck exam: Present: normal inspection, full ROM. Absent: tenderness, lymphadenopathy - Respiratory Respiratory exam: Present: normal lung sounds bilaterally. Absent: respiratory distress, wheezes, rales, rhonchi - Cardiovascular Cardiovascular Exam: Present: regular rate, normal rhythm. Absent: systolic murmur, diastolic murmur, rubs, gallop - GI/Abdominal GI/Abdominal exam: Present: soft, normal bowel sounds - Extremities Exam Extremities exam: Present: normal inspection, tenderness, normal capillary refill, other (no sulcus sign is noted. Shoulder). Absent: pedal edema, joint swelling, calf tenderness - Back Exam Back exam: Present: normal inspection. Absent: full ROM, tenderness, CVA tenderness (R), CVA tenderness (L), muscle spasm, paraspinal tenderness - Neurological Exam Neurological exam: Present: alert, oriented X3, CN II-XII intact, normal gait. Absent: motor sensory deficit, reflexes normal - Psychiatric Psychiatric exam: Present: normal affect, normal mood. Absent: anxious, flat affect - Skin Skin exam: Present: warm, dry, intact, normal color. Absent: rash ED Course Vital Signs 12/06/18 12/06/18 17:07 18:56 Temperature 98.3 F Pulse Rate 97 H Respiratory 20 18 Rate Blood Pressure 124/82 O2 Sat by Pulse 100 Oximetry ED Medical Decision Making - Radiology Data Radiology results: report reviewed No acute process is noted Critical care attestation.: If time is entered above; I have spent that time in minutes in the direct care of this critically ill patient, excluding procedure time. ED Disposition Clinical Impression: Fall, Shoulder contusion, Elbow contusion Disposition: TO HOME OR SELFCARE Is pt being admited?: No Does the pt Need Aspirin: No Condition: Stable Instructions: Contusion in Adults (ED), Fall Prevention (ED) Referrals: [facility] [Provider Group] - 3-5 Days
[2018-12-06 21:34] VITALS: BP 131/79
== END 2018-12-06 20:45 | disposition home or self-care (01) ==
LOC: ED 17:01
DX: S40.012A Contusion of left shoulder, initial encounter (principal); S50.02XA Contusion of left elbow, initial encounter; I11.0 Hypertensive heart disease with heart failure; Z79.82 Long term (current) use of aspirin; Z95.1 Presence of aortocoronary bypass graft; W01.198A Fall on same level from slipping, tripping and stumbling with subsequent striking against other object, initial encounter; Y93.89 Activity, other specified; Y92.098 Other place in other non-institutional residence as the place of occurrence of the external cause; Y99.8 Other external cause status
CPT/HCPCS: 99283

== ENCOUNTER 2019-02-23 06:51 | Inpatient (IN) | payer MEDICAID ==
--- NOTE | 2019-02-23 07:22 | XRay Report ---
PROCEDURE: XR CHEST 1V AP TECHNIQUE: AP portable chest radiograph HISTORY: Chest Pain COMPARISONS: 11/19/2017 FINDINGS: No mediastinal shift. Cardiac silhouette is not enlarged. Left chest pacemaker. No pneumothorax, effu penny, or focal pulmonary opacity identified. No acute skeletal findings. IMPRESSION: No acute pulmonary finding identified. This document is electronically signed by Sabas Banda MD., February 23 2019 07:20:53 AM ET
[2019-02-23 07:30] LABS: Basophils % (Auto) 0.5 % (0.0-1.8); Eosinophils % (Auto) 0.2 % (0.0-4.3); Hematocrit 40.6 % (30.3-42.9); Hemoglobin 14.2 gm/dl (10.1-14.3); Lymphocytes # (Auto) 1.4 K/mm3 (1.2-5.4); Mean Corpuscular HGB Conc 35 % (30-34); Mean Corpuscular Volume 96 fl (79-97); Monocytes # (Auto) 0.5 K/mm3 (0.0-0.8); Monocytes % (Auto) 6.8 % (0.0-7.3); Platelet Count 260 K/mm3 (140-440); Red Blood Count 4.23 M/mm3 (3.65-5.03); Red Cell Distribution Width 12.9 % (13.2-15.2)
[2019-02-23 07:49] LABS: BUN/Creatinine Ratio 13; Blood Urea Nitrogen 8 mg/dL (7-17); Calcium 9.1 mg/dL (8.4-10.2); Hemolysis Index 4
[2019-02-23] MEDS ORDERED: NACL 0.9% 1000 ML 1,000 ML IV ONE (09:05)
[2019-02-23] MEDS ORDERED: ZOFRAN IV ONE ×2 (09:05→11:12)
[2019-02-23] MEDS ORDERED: SUBLIMAZE IV ONE (09:05)
[2019-02-23] MEDS ORDERED: REGLAN IV ONE (11:11)
[2019-02-23] MEDS ORDERED: MORPHINE IV ONE (11:55)
[2019-02-23] MEDS ORDERED: MORPHINE ONE (11:58)
--- NOTE | 2019-02-23 12:53 | Emergency Department Report ---
ED General Adult HPI - General Chief complaint: Chest Pain Stated complaint: THROWING UP WEAKNESS BACK PAIN Time Seen by Provider: 02/23/19 09:00 Source: patient Mode of arrival: Ambulatory Limitations: No Limitations - History of Present Illness Initial comments: She is a 49-year-old female past medical history of coronary artery disease on Plavix who presents with chest pain and back pain and been going on for last 2 days. Patient states pain is a 10 out of 10 as an achy type of pain patient has been vomiting several times. Patient denies smoking or drinking however she states that she had stents placed in. Severity scale (0 -10): 10 - Related Data Home Medications Medication Instructions Recorded Confirmed Last Taken Aspirin [Aspirin TAB] 325 mg PO DAILY 02/23/14 05/15/16 07/25/15 325 MG Clopidogrel Bisulfate [Plavix] 75 mg PO DAILY 02/23/14 05/15/16 07/25/15 75 MG Isosorbide Mononitrate 60 mg PO BID 02/23/14 05/15/16 07/25/15 60 MG Potassium Chloride 10 meq PO BID 02/23/14 05/15/16 07/25/15 10 MEQ Losartan [Cozaar] 50 mg PO QDAY 07/06/14 05/15/16 07/25/15 50 MG Previous Rx's Medication Instructions Recorded Last Taken Type AtorvaSTATin [Lipitor] 40 mg PO QHS #30 tablet 07/27/15 Unknown Rx Carvedilol [Coreg] 3.125 mg PO BID #60 tablet 07/27/15 Unknown Rx Cyanocobalamin/Folic Acid [B-12 1 each SL QDAY #30 tab.subl 07/27/15 Unknown Rx 1,000 Mcg Sub Tablet] Folic Acid [Folvite] 1 mg PO QDAY #30 tablet 07/27/15 Unknown Rx Tramadol HCl/Acetaminophen 1 each PO Q6H PRN #15 tablet 07/27/15 Unknown Rx [Ultracet] HYDROcodone/APAP 5-325 [[place] 1 each PO Q6HR PRN #15 tablet 08/31/15 Unknown Rx 5/325] Dicyclomine [Bentyl] 10 mg PO QID PRN #20 capsule 05/16/16 Unknown Rx Potassium Chloride [Klor-Con] 20 meq PO QDAY #10 packet 05/16/16 Unknown Rx Ondansetron [Zofran Odt] 4 mg PO QID PRN #20 tab.rapdis 02/28/17 Unknown Rx methOCARBAMOL [Robaxin TAB] 500 mg PO BID PRN #20 tab 02/28/17 Unknown Rx oxyCODONE /ACETAMINOPHEN [Percocet 1 tab PO Q6HR PRN #20 tablet 02/28/17 Unknown Rx 5/325] Ondansetron [Zofran TAB] 4 mg PO Q8HR PRN #30 tablet 11/19/17 Unknown Rx Sucralfate [Carafate] 1 gm PO Q6HR #120 tablet 11/19/17 Unknown Rx Ketorolac [Toradol] 10 mg PO Q6H PRN #15 tablet 12/06/18 Unknown Rx traMADol [Ultram] 50 mg PO Q6HR PRN #20 tablet 12/06/18 Unknown Rx Allergies Allergy/AdvReac Type Severity Reaction Status Date / Time No Known Allergies Allergy Verified 07/06/14 09:55 ED Review of Systems ROS: Stated complaint: THROWING UP WEAKNESS BACK PAIN Other details as noted in HPI Constitutional: denies: chills, fever Eyes: denies: eye pain, eye discharge, vision change ENT: denies: ear pain, throat pain Respiratory: denies: cough, shortness of breath, wheezing Cardiovascular: chest pain. denies: palpitations Endocrine: no symptoms reported Gastrointestinal: denies: abdominal pain, nausea, diarrhea Genitourinary: denies: urgency, dysuria, discharge Musculoskeletal: denies: back pain, joint swelling, arthralgia Skin: denies: rash, lesions Neurological: denies: headache, weakness, paresthesias Psychiatric: denies: anxiety, depression Hematological/Lymphatic: denies: easy bleeding, easy bruising ED Past Medical Hx - Past Medical History Previous Medical History?: Yes Hx Hypertension: Yes (EF 15-20%) Hx CVA: Yes (2015, no deficits) Hx Heart Attack/AMI: Yes Hx Congestive Heart Failure: Yes Hx Renal Disease: No Hx Asthma: No Hx COPD: No Additional medical history: CVD - Surgical History Past Surgical History?: Yes Hx Coronary Stent: Yes Hx Pacemaker: Yes Hx Internal Defibrillator: Yes Additional Surgical History: stent x 1, placed in 2008. Defribrilator - Social History Smoking Status: Never Smoker Substance Use Type: None - Medications Home Medications: Home Medications Medication Instructions Recorded Confirmed Last Taken Type Aspirin [Aspirin TAB] 325 mg PO DAILY 02/23/14 05/15/16 07/25/15 History 325 MG Clopidogrel Bisulfate [Plavix] 75 mg PO DAILY 02/23/14 05/15/16 07/25/15 History 75 MG Isosorbide Mononitrate 60 mg PO BID 02/23/14 05/15/16 07/25/15 History 60 MG Potassium Chloride 10 meq PO BID 02/23/14 05/15/16 07/25/15 History 10 MEQ Losartan [Cozaar] 50 mg PO QDAY 07/06/14 05/15/16 07/25/15 History 50 MG AtorvaSTATin [Lipitor] 40 mg PO QHS #30 tablet 07/27/15 05/15/16 Unknown Rx Carvedilol [Coreg] 3.125 mg PO BID #60 tablet 07/27/15 05/15/16 Unknown Rx Cyanocobalamin/Folic Acid [B-12 1 each SL QDAY #30 tab.subl 07/27/15 05/15/16 Unknown Rx 1,000 Mcg Sub Tablet] Folic Acid [Folvite] 1 mg PO QDAY #30 tablet 07/27/15 05/15/16 Unknown Rx Tramadol HCl/Acetaminophen 1 each PO Q6H PRN #15 tablet 07/27/15 05/15/16 Unknown Rx [Ultracet] HYDROcodone/APAP 5-325 [[place] 1 each PO Q6HR PRN #15 tablet 08/31/15 05/15/16 Unknown Rx 5/325] Dicyclomine [Bentyl] 10 mg PO QID PRN #20 capsule 05/16/16 Unknown Rx Potassium Chloride [Klor-Con] 20 meq PO QDAY #10 packet 05/16/16 Unknown Rx Ondansetron [Zofran Odt] 4 mg PO QID PRN #20 tab.rapdis 02/28/17 Unknown Rx methOCARBAMOL [Robaxin TAB] 500 mg PO BID PRN #20 tab 02/28/17 Unknown Rx oxyCODONE /ACETAMINOPHEN [Percocet 1 tab PO Q6HR PRN #20 tablet 02/28/17 Un known Rx 5/325] Ondansetron [Zofran TAB] 4 mg PO Q8HR PRN #30 tablet 11/19/17 Unknown Rx Sucralfate [Carafate] 1 gm PO Q6HR #120 tablet 11/19/17 Unknown Rx Ketorolac [Toradol] 10 mg PO Q6H PRN #15 tablet 12/06/18 Unknown Rx traMADol [Ultram] 50 mg PO Q6HR PRN #20 tablet 12/06/18 Unknown Rx ED Physical Exam - General Limitations: No Limitations General appearance: alert, in no apparent distress - Head Head exam: Present: atraumatic, normocephalic - Eye Eye exam: Present: normal appearance - ENT ENT exam: Present: mucous membranes moist - Neck Neck exam: Present: normal inspection - Respiratory Respiratory exam: Present: normal lung sounds bilaterally. Absent: respiratory distress - Cardiovascular Cardiovascular Exam: Present: regular rate, normal rhythm. Absent: systolic murmur, diastolic murmur, rubs, gallop - GI/Abdominal GI/Abdominal exam: Present: soft, normal bowel sounds - Extremities Exam Extremities exam: Present: normal inspection - Back Exam Back exam: Present: normal inspection - Neurological Exam Neurological exam: Present: alert, oriented X3 - Psychiatric Psychiatric exam: Present: normal affect, normal mood - Skin Skin exam: Present: warm, dry, intact, normal color. Absent: rash ED Course Vital Signs 02/23/19 02/23/19 02/23/19 06:52 08:51 08:52 Temperature 97.9 F Pulse Rate 96 H 78 66 Respiratory 18 17 13 Rate Blood Pressure 138/90 O2 Sat by Pulse 99 100 Oximetry 02/23/19 02/23/19 02/23/19 08:54 08:55 08:56 Temperature Pulse Rate 67 79 68 Respiratory 16 13 11 L Rate Blood Pressure 141/75 141/75 O2 Sat by Pulse 100 100 100 Oximetry 02/23/19 02/23/19 02/23/19 08:58 09:00 09:01 Temperature Pulse Rate 77 87 84 Respiratory 15 16 14 Rate Blood Pressure 141/75 141/75 134/77 O2 Sat by Pulse 100 100 99 Oximetry 02/23/19 02/23/19 02/23/19 09:02 09:04 09:06 Temperature Pulse Rate 89 81 80 Respiratory 21 15 12 Rate Blood Pressure 134/77 134/77 134/77 O2 Sat by Pulse 100 100 100 Oximetry 04/09/19 04/09/19 04/09/19 09:08 09:10 09:12 Temperature Pulse Rate 71 68 76 Respiratory 19 11 L 14 Rate Blood Pressure 134/77 134/77 134/77 O2 Sat by Pulse 100 100 100 Oximetry 02/23/19 02/23/19 02/23/19 09:14 09:16 09:18 Temperature Pulse Rate 86 86 62 Respiratory 13 19 14 Rate Blood Pressure 134/77 97/78 97/78 O2 Sat by Pulse 100 100 100 Oximetry 02/23/19 02/23/19 02/23/19 09:19 09:20 09:22 Temperature Pulse Rate 63 68 62 Respiratory 11 L 16 13 Rate Blood Pressure 97/78 97/78 97/78 O2 Sat by Pulse 100 99 99 Oximetry 02/23/19 02/23/19 02/23/19 09:24 09:25 09:26 Temperature Pulse Rate 57 L 81 74 Respiratory 16 15 14 Rate Blood Pressure 97/78 97/78 97/78 O2 Sat by Pulse 100 99 100 Oximetry 02/23/19 02/23/19 02/23/19 09:28 09:30 09:31 Temperature Pulse Rate 74 79 78 Respiratory 21 15 16 Rate Blood Pressure 97/78 103/84 103/84 O2 Sat by Pulse 100 100 100 Oximetry 02/23/19 02/23/19 02/23/19 09:32 09:34 09:36 Temperature Pulse Rate 67 66 56 L Respiratory 16 12 21 Rate Blood Pressure 103/84 103/84 97/78 O2 Sat by Pulse 100 100 100 Oximetry 02/23/19 02/23/19 02/23/19 09:38 09:40 09:42 Temperature Pulse Rate 70 66 59 L Respiratory 13 10 L 18 Rate Blood Pressure 97/78 97/78 97/78 O2 Sat by Pulse 100 100 100 Oximetry 02/23/19 02/23/19 02/23/19 09:44 09:46 09:48 Temperature Pulse Rate 62 82 88 Respiratory 21 12 24 Rate Blood Pressure 97/78 97/78 97/78 O2 Sat by Pulse 100 100 99 Oximetry 02/23/19 02/23/19 02/23/19 09:50 09:52 09:54 Temperature Pulse Rate 79 68 73 Respiratory 10 L 16 13 Rate Blood Pressure 97/78 97/78 97/78 O2 Sat by Pulse 100 100 99 Oximetry 02/23/19 02/23/19 02/23/19 14:02 14:03 14:05 Temperature Pulse Rate 80 66 87 Respiratory 14 17 11 L Rate Blood Pressure O2 Sat by Pulse 100 100 100 Oximetry 02/23/19 02/23/19 02/23/19 14:07 14:09 14:11 Temperature Pulse Rate 79 64 67 Respiratory 11 L 13 18 Rate Blood Pressure O2 Sat by Pulse 99 100 100 Oximetry 02/23/19 02/23/19 02/23/19 14:13 14:15 14:17 Temperature Pulse Rate 81 72 73 Respiratory 17 22 14 Rate Blood Pressure O2 Sat by Pulse 99 99 99 Oximetry 02/23/19 02/23/19 02/23/19 14:19 14:21 14:23 Temperature Pulse Rate 78 76 80 Respiratory 17 20 12 Rate Blood Pressure O2 Sat by Pulse 99 99 100 Oximetry 02/23/19 02/23/19 02/23/19 14:25 14:27 14:29 Temperature Pulse Rate 70 70 82 Respiratory 17 13 14 Rate Blood Pressure O2 Sat by Pulse 99 99 99 Oximetry 02/23/19 02/23/19 02/23/19 14:31 14:33 14:35 Temperature Pulse Rate 70 69 74 Respiratory 15 22 23 Rate Blood Pressure O2 Sat by Pulse 99 100 99 Oximetry 02/23/19 02/23/19 02/23/19 14:36 14:37 14:39 Temperature Pulse Rate 83 66 77 Respiratory 24 21 26 H Rate Blood Pressure O2 Sat by Pulse 99 100 100 Oximetry 02/23/19 02/23/19 02/23/19 14:41 14:43 14:45 Temperature Pulse Rate 80 69 74 Respiratory 25 H 16 25 H Rate Blood Pressure O2 Sat by Pulse 99 99 100 Oximetry 02/23/19 02/23/19 02/23/19 14:47 14:49 14:51 Temperature Pulse Rate 73 75 80 Respiratory 21 21 20 Rate Blood Pressure O2 Sat by Pulse 100 99 99 Oximetry 02/23/19 02/23/19 02/23/19 14:53 14:55 14:56 Temperature Pulse Rate 83 84 84 Respiratory 25 H 21 23 Rate Blood Pressure O2 Sat by Pulse 100 99 99 Oximetry 02/23/19 02/23/19 02/23/19 14:57 14:59 15:01 Temperature Pulse Rate 77 80 76 Respiratory 20 17 16 Rate Blood Pressure O2 Sat by Pulse 99 99 98 Oximetry 02/23/19 02/23/19 02/23/19 15:03 15:05 15:07 Temperature Pulse Rate 83 101 H 83 Respiratory 25 H 17 26 H Rate Blood Pressure O2 Sat by Pulse 99 99 99 Oximetry 02/23/19 02/23/19 02/23/19 15:09 15:11 15:13 Temperature Pulse Rate 74 81 66 Respiratory 24 23 26 H Rate Blood Pressure O2 Sat by Pulse 100 100 100 Oximetry 02/23/19 02/23/19 02/23/19 15:15 15:17 15:19 Temperature Pulse Rate 81 70 72 Respiratory 17 24 23 Rate Blood Pressure O2 Sat by Pulse 99 100 100 Oximetry 02/23/19 02/23/19 02/23/19 15:21 15:23 15:25 Temperature Pulse Rate 77 96 H 80 Respiratory 24 15 21 Rate Blood Pressure O2 Sat by Pulse 99 100 99 Oximetry 02/23/19 02/23/19 02/23/19 15:27 15:29 15:31 Temperature Pulse Rate 80 64 69 Respiratory 18 23 22 Rate Blood Pressure O2 Sat by Pulse 99 99 99 Oximetry 02/23/19 02/23/19 15:33 15:35 Temperature Pulse Rate 71 71 Respiratory 24 22 Rate Blood Pressure O2 Sat by Pulse 99 98 Oximetry ED Medical Decision Making - Lab Data Result diagrams: 02/23/19 07:18 02/23/19 07:18 Lab Results 02/23/19 02/23/19 02/23/19 Range/Units 07:18 07:18 10:05 WBC 6.9 (4.5-11.0) K/mm3 RBC 4.23 (3.65-5.03) M/mm3 Hgb 14.2 (10.1-14.3) gm/dl Hct 40.6 (30.3-42.9) % MCV 96 (79-97) fl MCH 34 H (28-32) pg MCHC 35 H (30-34) % RDW 12.9 L (13.2-15.2) % Plt Count 260 (140-440) K/mm3 Lymph % (Auto) 20.0 (13.4-35.0) % [place] % (Auto) 6.8 (0.0-7.3) % Eos % (Auto) 0.2 (0.0-4.3) % Baso % (Auto) 0.5 (0.0-1.8) % Lymph # 1.4 (1.2-5.4) K/mm3 [place] # 0.5 (0.0-0.8) K/mm3 Eos # 0.0 (0.0-0.4) K/mm3 Baso # 0.0 (0.0-0.1) K/mm3 Seg Neutrophils % 72.5 H (40.0-70.0) % Seg Neutrophils # 5.0 (1.8-7.7) K/mm3 Sodium 137 (137-145) mmol/L Potassium 3.9 (3.6-5.0) mmol/L Chloride 103.9 (98-107) mmol/L Carbon Dioxide 18 L (22-30) mmol/L Anion Gap 19 mmol/L BUN 8 (7-17) mg/dL Creatinine 0.6 L (0.7-1.2) mg/dL Estimated GFR > 60 ml/min BUN/Creatinine Ratio 13 % Glucose 111 H (65-100) mg/dL Calcium 9.1 (8.4-10.2) mg/dL Troponin T < 0.010 < 0.010 (0.00-0.029) ng/mL 02/23/19 Range/Units 12:34 WBC (4.5-11.0) K/mm3 RBC (3.65-5.03) M/mm3 Hgb (10.1-14.3) gm/dl Hct (30.3-42.9) % MCV (79-97) fl MCH (28-32) pg MCHC (30-34) % RDW (13.2-15.2) % Plt Count (140-440) K/mm3 Lymph % (Auto) (13.4-35.0) % [place] % (Auto) (0.0-7.3) % Eos % (Auto) (0.0-4.3) % Baso % (Auto) (0.0-1.8) % Lymph # (1.2-5.4) K/mm3 [place] # (0.0-0.8) K/mm3 Eos # (0.0-0.4) K/mm3 Baso # (0.0-0.1) K/mm3 Seg Neutrophils % (40.0-70.0) % Seg Neutrophils # (1.8-7.7) K/mm3 Sodium (137-145) mmol/L Potassium (3.6-5.0) mmol/L Chloride (98-107) mmol/L Carbon Dioxide (22-30) mmol/L Anion Gap mmol/L BUN (7-17) mg/dL Creatinine (0.7-1.2) mg/dL Estimated GFR ml/min BUN/Creatinine Ratio % Glucose (65-100) mg/dL Calcium (8.4-10.2) mg/dL Troponin T < 0.010 (0.00-0.029) ng/mL - EKG Data -: EKG Interpreted by Me - Radiology Data Radiology results: report reviewed His x-ray: Shows no acute cardiopulmonary disease CT abdomen and pelvis: Shows nodular densities in the liver - Medical Decision Making Chief medical diagnosis: NSTEMI Differential medical diagnosis: Small bowel obstruction, Electrolyte abnormality, arrhythmia Critical care attestation.: If time is entered above; I have spent that time in minutes in the direct care of this critically ill patient, excluding procedure time. ED Disposition Clinical Impression: Chest pain Qualifiers: Chest pain type: chest pain due to myocardial ischemia Ischemic chest pain type: unspecified angina pectoris type Qualified Code(s): I25.9 - Chronic ischemic heart disease, unspecified Disposition: DC-09 OP ADMIT IP TO THIS HOSP Is pt being admited?: Yes Does the pt Need Aspirin: No Condition: Stable Instructions: Chest Pain (ED) Referrals: [facility] [Other] - 3-5 Days
[2019-02-23] MEDS ORDERED: BABY ASPIRIN PO ONE (14:18)
--- NOTE | 2019-02-23 14:29 | Cat Scan Report ---
PROCEDURE: CT ABDOMEN PELVIS W CON TECHNIQUE: Computerized axial tomography of the abdomen and pelvis was performed after the IV injecti on of iodinated nonionic contrast. Coronal and sagittal reconstructed imaging provided. CT DOSE LENGTH PRODUCT: 3389.5 mGy-cm. HISTORY: low left flank pain with nausea COMPARISONS: None currently available. FINDINGS: Abdomen: Minimal nodular scarring or focal infiltrate in the medial right lower lobe on series 3:1-33. Nodular component measures 7.6 mm. Liver: 5.9 mm well-defined low-density lesion near the liver dome is the largest of 3 or 4 ill-define d low density lesions in the liver. No obvious enhancement. Stomach: [id number] hiatal hernia. Otherwise unremarkable. Gallbladder, spleen, pancreas, and adrenals are unremarkable. Kidneys: Series 602:113 and series 3:65 demonstrates a area of ill-defined cortical irregularity and decreased enhancement in the right kidney minimal perinephric stranding identified. No right hydronep hrosis. No stone. Subcentimeter low-density lesion in the upper cortex of the left kidney measures 5. 6 mm and is too small to accurately characterize. Otherwise the kidneys demonstrate symmetrical corti katy enhancement and excretion No aneurysm. No dissection. No significant atherosclerotic disease. IVC is unremarkable. There is no periaortic or retroperitoneal adenopathy or mass. [id number] stool. No wall thickening or inflammatory changes. Terminal ileum is unremarkable. Appendix is normal. Small bowel loops are unremarkable. No obstructive pattern. No air-fluid levels. No free air. No free fluid. Mesentery is unremarkable. Pelvis: Limited images of the uterus are unremarkable. Bladder: Mostly collapsed and not well evaluated. No obvious lesions. There is no pelvic mass or adenopathy. Inguinal regions are unremarkable. Bones: No suspicious osseous lesions on this limited examination of the skeleton. Metastatic disease better evaluated with bone scan. Degenerative changes are in the spine. IMPRESSION: * Subcentimeter low-density lesions in the liver. Hepatic lesions are nonspecific. Differential diag nosis includes cysts, hemangiomas, pseudotumors associated with fatty infiltration and also benign an d malignant tumors. Cysts and hemangiomas favored. * Slight cortical irregularity and decreased cortical enhancement in the mid right kidney may repres ent scarring, infection, or nonenhancing lesion. Please correlate for possible pyelonephritis. Bladde r is collapsed and not adequately evaluated. * Scarring with nodularity or nodular scarring in the medial right lower lobe is nonspecific. Compar edil with priors or short-term interval follow-up is recommended clinically indicated. This document is electronically signed by Tan Way MD., February 23 2019 02:27:40 PM ET
[2019-02-23] MEDS ORDERED: REGLAN ONE (15:43)
[2019-02-23] MEDS ORDERED: LOVENOX SUB-Q SCH (16:00)
[2019-02-23] MEDS ORDERED: LOVENOX SUB-Q ONE (16:59)
[2019-02-23] MEDS: LOVENOX SUB-Q SCH (17:40)
--- NOTE | 2019-02-23 22:21 | Progress Note ---
Assessment and Plan - Patient Problems (1) Chest pain Current Visit: Yes Status: Acute Qualifiers: Chest pain type: chest pain due to myocardial ischemia Ischemic chest pain type: unspecified angina pectoris type Qualified Code(s): I25.9 - Chronic ischemic heart disease, unspecified Plan to address problem: Chest pain protocol Lexiscan in AM serial troponins GERD and costochondritis in differential diagnosisi Subjective Date of service: 02/23/19 Principal diagnosis: Chest pain for 1 day Interval history: 49-year-old female past medical history of coronary artery disease on Plavix who presents with chest pain and back pain and been going on for last 2 days. Patient states pain is a 10 out of 10 as an achy type of pain patient has been vomiting several times. Patient denies smoking or drinking however she states that she had stents placed in. Past Medical History Previous Medical History?: Yes Hypertension: Yes (EF 15-20%) CVA: Yes (2015, no deficits) AMI: Yes Congestive Heart Failure: Yes Additional medical history: CVD Surgical History Past Surgical History?: Yes Coronary Stent: Yes Pacemaker: Yes Internal Defibrillator: Yes Additional Surgical History: stent x 1, placed in 2008. Defribrilator -Social History Smoking Status: Never Smoker Substance Use Type: None Review of Systems ROS: Stated complaint: THROWING UP WEAKNESS BACK PAIN Other details as noted in HPI Constitutional: denies: chills, fever Eyes: denies: eye pain, eye discharge, vision change ENT: denies: ear pain, throat pain Respiratory: denies: cough, shortness of breath, wheezing Cardiovascular: chest pain. denies: palpitations Endocrine: no symptoms reported Gastrointestinal: denies: abdominal pain, nausea, diarrhea Genitourinary: denies: urgency, dysuria, discharge Musculoskeletal: denies: back pain, joint swelling, arthralgia Skin: denies: rash, lesions Neurological: denies: headache, weakness, paresthesias Psychiatric: denies: anxiety, depression Hematological/Lymphatic: denies: easy bleeding, easy bruising Objective - Constitutional Vitals: Vital Signs - 12hr 02/23/19 02/23/19 02/23/19 14:02 14:03 14:05 Temperature Pulse Rate 80 66 87 Respiratory 14 17 11 L Rate Blood Pressure O2 Sat by Pulse 100 100 100 Oximetry 02/23/19 02/23/19 02/23/19 14:07 14:09 14:11 Temperature Pulse Rate 79 64 67 Respiratory 11 L 13 18 Rate Blood Pressure O2 Sat by Pulse 99 100 100 Oximetry 02/23/19 02/23/19 02/23/19 14:13 14:15 14:17 Temperature Pulse Rate 81 72 73 Respiratory 17 22 14 Rate Blood Pressure O2 Sat by Pulse 99 99 99 Oximetry 02/23/19 02/23/19 02/23/19 14:19 14:21 14:23 Temperature Pulse Rate 78 76 80 Respiratory 17 20 12 Rate Blood Pressure O2 Sat by Pulse 99 99 100 Oximetry 02/23/19 02/23/19 02/23/19 14:25 14:27 14:29 Temperature Pulse Rate 70 70 82 Respiratory 17 13 14 Rate Blood Pressure O2 Sat by Pulse 99 99 99 Oximetry 02/23/19 02/23/19 02/23/19 14:31 14:33 14:35 Temperature Pulse Rate 70 69 74 Respiratory 15 22 23 Rate Blood Pressure O2 Sat by Pulse 99 100 99 Oximetry 02/23/19 02/23/19 02/23/19 14:36 14:37 14:39 Temperature Pulse Rate 83 66 77 Respiratory 24 21 26 H Rate Blood Pressure O2 Sat by Pulse 99 100 100 Oximetry 02/23/19 02/23/19 02/23/19 14:41 14:43 14:45 Temperature Pulse Rate 80 69 74 Respiratory 25 H 16 25 H Rate Blood Pressure O2 Sat by Pulse 99 99 100 Oximetry 02/23/19 02/23/19 02/23/19 14:47 14:49 14:51 Temperature Pulse Rate 73 75 80 Respiratory 21 21 20 Rate Blood Pressure O2 Sat by Pulse 100 99 99 Oximetry 02/23/19 02/23/19 02/23/19 14:53 14:55 14:56 Temperature Pulse Rate 83 84 84 Respiratory 25 H 21 23 Rate Blood Pressure O2 Sat by Pulse 100 99 99 Oximetry 02/23/19 02/23/19 02/23/19 14:57 14:59 15:01 Temperature Pulse Rate 77 80 76 Respiratory 20 17 16 Rate Blood Pressure O2 Sat by Pulse 99 99 98 Oximetry 02/23/19 02/23/19 02/23/19 15:03 15:05 15:07 Temperature Pulse Rate 83 101 H 83 Respiratory 25 H 17 26 H Rate Blood Pressure O2 Sat by Pulse 99 99 99 Oximetry 02/23/19 02/23/19 02/23/19 15:09 15:11 15:13 Temperature Pulse Rate 74 81 66 Respiratory 24 23 26 H Rate Blood Pressure O2 Sat by Pulse 100 100 100 Oximetry 02/23/19 02/23/19 02/23/19 15:15 15:17 15:19 Temperature Pulse Rate 81 70 72 Respiratory 17 24 23 Rate Blood Pressure O2 Sat by Pulse 99 100 100 Oximetry 02/23/19 02/23/19 02/23/19 15:21 15:23 15:25 Temperature Pulse Rate 77 96 H 80 Respiratory 24 15 21 Rate Blood Pressure O2 Sat by Pulse 99 100 99 Oximetry 02/23/19 02/23/19 02/23/19 15:27 15:29 15:31 Temperature Pulse Rate 80 64 69 Respiratory 18 23 22 Rate Blood Pressure O2 Sat by Pulse 99 99 99 Oximetry 02/23/19 02/23/19 02/23/19 15:33 15:35 15:41 Temperature Pulse Rate 71 71 83 Respiratory 24 22 14 Rate Blood Pressure O2 Sat by Pulse 99 98 100 Oximetry 02/23/19 02/23/19 02/23/19 15:51 16:01 16:11 Temperature Pulse Rate 66 73 88 Respiratory 12 18 19 Rate Blood Pressure O2 Sat by Pulse 99 99 99 Oximetry 02/23/19 02/23/19 02/23/19 16:21 16:31 16:43 Temperature Pulse Rate 82 89 Respiratory 21 15 Rate Blood Pressure O2 Sat by Pulse 99 99 95 Oximetry 02/23/19 02/23/19 02/23/19 16:51 17:01 17:11 Temperature Pulse Rate 78 67 70 Respiratory 18 8 L 10 L Rate Blood Pressure O2 Sat by Pulse 99 Oximetry 02/23/19 02/23/19 02/23/19 17:21 17:31 17:41 Temperature Pulse Rate 77 78 85 Respiratory 10 L 14 16 Rate Blood Pressure O2 Sat by Pulse Oximetry 02/23/19 02/23/19 02/23/19 17:51 18:01 18:11 Temperature Pulse Rate 82 74 99 H Respiratory 18 11 L 17 Rate Blood Pressure O2 Sat by Pulse Oximetry 02/23/19 02/23/19 19:15 21:02 Temperature 98.0 F Pulse Rate 85 84 Respiratory 20 Rate Blood Pressure 108/72 O2 Sat by Pulse 98 Oximetry General appearance: Present: no acute distress, well-nourished - EENT Eyes: PERRL, EOM intact ENT: hearing intact, clear oral mucosa Ears: bilateral: normal - Neck Neck: supple, normal ROM - Respiratory Respiratory effort: normal Respiratory: bilateral: CTA - Breasts Breasts: normal - Cardiovascular Heart rate: 78 Rhythm: regular Heart Sounds: Present: S1 & S2. Absent: gallop, rub Extremities: pulses intact, No edema, normal color, Full ROM - Gastrointestinal General gastrointestinal: Present: soft, non-tender, non-distended, normal bowel sounds Rectal Exam: deferred - Genitourinary Female genitourinary: normal - Integumentary Integumentary: clear, warm, dry - Musculoskeletal Musculoskeletal: 1, strength equal bilaterally - Neurologic Neurologic: moves all extremities - Psychiatric Psychiatric: memory intact, appropriate mood/affect, intact judgment & insight - Allied health notes Allied health notes reviewed: nursing - Labs CBC & Chem 7: 02/24/19 04:29 02/24/19 04:29 Labs: Abnormal lab results 02/23/19 02/23/19 Range/Units 07:18 07:18 MCH 34 H (28-32) pg MCHC 35 H (30-34) % RDW 12.9 L (13.2-15.2) % Seg Neutrophils % 72.5 H (40.0-70.0) % Carbon Dioxide 18 L (22-30) mmol/L Creatinine 0.6 L (0.7-1.2) mg/dL Glucose 111 H (65-100) mg/dL CT abd IMPRESSION: * Subcentimeter low-density lesions in the liver. Hepatic lesions are nonspecific. Differential diagnosis includes cysts, hemangiomas, pseudotumors associated with fatty infiltration and also benign and malignant tumors. Cysts and hemangiomas favored. * Slight cortical irregularity and decreased cortical enhancement in the mid right kidney may represent scarring, infection, or nonenhancing lesion. Please correlate for possible pyelonephritis. Bladder is collapsed and not adequately evaluated. * Scarring with nodularity or nodular scarring in the medial right lower lobe is nonspecific. Comparison with priors or short-term interval follow-up is recommended clinically indicated. This document is electronically signed by Tan Way MD., February 23 2019 02:27:40 PM ET - Imaging and cardiology EKG: report reviewed (NSR 78/min) CT scan - abdomen: report reviewed Other: report reviewed
[2019-02-23] MEDS ORDERED: PERCOCET 5/325 PO PRN (22:22)
[2019-02-23] MEDS ORDERED: SODIUM CHLORIDE FLUSH SYRINGE 10 ML IV PRN (22:22)
[2019-02-23] MEDS ORDERED: TYLENOL PO PRN (22:22)
[2019-02-23] MEDS ORDERED: DILAUDID IV PRN (22:22)
[2019-02-23] MEDS ORDERED: ZOFRAN IV PRN (22:22)
[2019-02-23] MEDS: PEPCID PO SCH (22:50)
[2019-02-24 05:15] LABS: Basophils % (Auto) 0.2 % (0.0-1.8); Eosinophils % (Auto) 0.2 % (0.0-4.3); Hematocrit 36.9 % (30.3-42.9); Hemoglobin 13.1 gm/dl (10.1-14.3); Lymphocytes # (Auto) 2.1 K/mm3 (1.2-5.4); Mean Corpuscular HGB Conc 35 % (30-34); Mean Corpuscular Volume 97 fl (79-97); Monocytes # (Auto) 0.6 K/mm3 (0.0-0.8); Monocytes % (Auto) 9.1 % (0.0-7.3); Platelet Count 225 K/mm3 (140-440); Red Cell Distribution Width 13.3 % (13.2-15.2)
[2019-02-24 05:37] LABS: Alanine Aminotransferase 12 units/L (7-56); Albumin 3.4 g/dL (3.9-5); BUN/Creatinine Ratio 15; Blood Urea Nitrogen 9 mg/dL (7-17); Calcium 8.9 mg/dL (8.4-10.2); Hemolysis Index 13
--- NOTE | 2019-02-24 07:43 | History and Physical Report ---
History of Present Illness Date of examination: 02/24/19 Date of admission: 02/23/19 15:44 Chief complaint: Chest pain for 2 days History of present illness: 49-year-old female past medical history of coronary artery disease on Plavix who presents with chest pain and back pain and been going on for last 2 days. Patient states pain is a 10 out of 10 as an achy type of pain patient has been vomiting several times. Patient denies smoking or drinking however she states that she had stents placed in. Past Medical History Previous Medical History?: Yes Hypertension: Yes (EF 15-20%) CVA: Yes (2014, no deficits) AMI: Yes Congestive Heart Failure: Yes Additional medical history: CVD Surgical History Past Surgical History?: Yes Coronary Stent: Yes Pacemaker: Yes Internal Defibrillator: Yes Additional Surgical History: stent x 1, placed in 2008. Defribrilator -Social History Smoking Status: Never Smoker Substance Use Type: None Review of Systems ROS: Stated complaint: THROWING UP WEAKNESS BACK PAIN Other details as noted in HPI Constitutional: denies: chills, fever Eyes: denies: eye pain, eye discharge, vision change ENT: denies: ear pain, throat pain Respiratory: denies: cough, shortness of breath, wheezing Cardiovascular: chest pain. denies: palpitations Endocrine: no symptoms reported Gastrointestinal: denies: abdominal pain, nausea, diarrhea Genitourinary: denies: urgency, dysuria, discharge Musculoskeletal: denies: back pain, joint swelling, arthralgia Skin: denies: rash, lesions Neurological: denies: headache, weakness, paresthesias Psychiatric: denies: anxiety, depression Hematological/Lymphatic: denies: easy bleeding, easy bruising Medications and Allergies Allergies Allergy/AdvReac Type Severity Reaction Status Date / Time No Known Allergies Allergy Verified 07/06/14 09:55 Home Medications Medication Instructions Recorded Confirmed Last Taken Type Clopidogrel Bisulfate [Plavix] 75 mg PO DAILY 02/23/14 02/23/19 07/25/15 History 75 MG Folic Acid [Folvite] 1 mg PO QDAY #30 tablet 07/27/15 02/23/19 Unknown Rx Carvedilol [Coreg] 25 mg PO BID 02/23/19 02/23/19 Unknown History Furosemide [Lasix TAB] 40 mg PO QDAY 02/23/19 02/23/19 Unknown History ISOSORBIDE MONOnitrate [Imdur ER] 120 mg PO QAM 02/23/19 02/23/19 Unknown History Nitroglycerin 0.3 mg SL PRN PRN 02/23/19 02/23/19 Unknown History Potassium Chloride 20 meq PO QID 02/23/19 02/23/19 Unknown History Spironolactone [Aldactone] 25 mg PO BID 02/23/19 02/23/19 Unknown History metOLazone [Metolazone] 2.5 mg PO QDAY 02/23/19 02/23/19 Unknown History Active Meds: Active Medications Acetaminophen (Tylenol) 650 mg PO Q4H PRN PRN Reason: Pain MILD(1-3)/Fever >100.5/MORAES Enoxaparin Sodium (Lovenox) 40 mg SUB-Q QDAY@1000 [facility] Last Admin: 02/23/19 17:40 Dose: 40 mg Documented by: Famotidine (Pepcid) 20 mg PO BID [facility] Last Admin: 02/23/19 22:50 Dose: 20 mg Documented by: Hydromorphone HCl (Dilaudid) 0.5 mg IV Q3H PRN PRN Reason: Pain , Severe (7-10) Ondansetron HCl (Zofran) 4 mg IV Q8H PRN PRN Reason: Nausea And Vomiting Oxycodone/Acetaminophen (Percocet 5/325) 1 tab PO Q6H PRN PRN Reason: Pain, Moderate (4-6) Sodium Chloride (Sodium Chloride Flush Syringe 10 Ml) 10 ml IV BID [facility] Sodium Chloride (Sodium Chloride Flush Syringe 10 Ml) 10 ml IV PRN PRN PRN Reason: LINE FLUSH Exam - Constitutional Vitals: Temp Pulse Resp BP Pulse Ox 97 F L 18 L 18 112/68 91 02/24/19 00:22 02/24/19 00:22 02/23/19 23:40 02/24/19 00:22 02/24/19 00:22 General appearance: Present: no acute distress, well-nourished - EENT Eyes: Present: PERRL ENT: hearing intact, clear oral mucosa - Neck Neck: Present: supple, normal ROM - Respiratory Respiratory effort: normal Respiratory: bilateral: CTA - Cardiovascular Heart rate: 79 Rhythm: regular Heart Sounds: Present: S1 & S2. Absent: rub, click - Extremities Extremities: pulses symmetrical, No edema Peripheral Pulses: within normal limits - Abdominal General gastrointestinal: Present: soft, non-tender, non-distended, normal bowel sounds Female genitourinary: Present: normal - Rectal Rectal Exam: deferred - Integumentary Integumentary: Present: clear, warm, dry - Musculoskeletal Musculoskeletal: gait normal, strength equal bilaterally - Psychiatric Psychiatric: appropriate mood/affect, intact judgment & insight - Neurologic Neurologic: CNII-XII intact, moves all extremities - Allied Health Allied health notes reviewed: nursing Results - Labs CBC & Chem 7: 02/24/19 04:29 02/24/19 04:29 Labs: Laboratory Last Values WBC 7.0 K/mm3 (4.5-11.0) 02/24/19 04:29 RBC 3.80 M/mm3 (3.65-5.03) 02/24/19 04:29 Hgb 13.1 gm/dl (10.1-14.3) 02/24/19 04:29 Hct 36.9 % (30.3-42.9) 02/24/19 04:29 MCV 97 fl (79-97) 02/24/19 04:29 MCH 34 pg (28-32) H 02/24/19 04:29 MCHC 35 % (30-34) H 02/24/19 04:29 RDW 13.3 % (13.2-15.2) 02/24/19 04:29 Plt Count 225 K/mm3 (140-440) 02/24/19 04:29 Lymph % (Auto) 30.0 % (13.4-35.0) 02/24/19 04:29 [place] % (Auto) 9.1 % (0.0-7.3) H 02/24/19 04:29 Eos % (Auto) 0.2 % (0.0-4.3) 02/24/19 04:29 Baso % (Auto) 0.2 % (0.0-1.8) 02/24/19 04:29 Lymph # 2.1 K/mm3 (1.2-5.4) 02/24/19 04:29 [place] # 0.6 K/mm3 (0.0-0.8) 02/24/19 04:29 Eos # 0.0 K/mm3 (0.0-0.4) 02/24/19 04:29 Baso # 0.0 K/mm3 (0.0-0.1) 02/24/19 04:29 Seg Neutrophils % 60.5 % (40.0-70.0) 02/24/19 04:29 Seg Neutrophils # 4.2 K/mm3 (1.8-7.7) 02/24/19 04:29 Sodium 137 mmol/L (137-145) 02/24/19 04:29 Potassium 3.2 mmol/L (3.6-5.0) L 02/24/19 04:29 Chloride 101.3 mmol/L (98-107) 02/24/19 04:29 Carbon Dioxide 19 mmol/L (22-30) L 02/24/19 04:29 Anion Gap 20 mmol/L 02/24/19 04:29 BUN 9 mg/dL (7-17) 02/24/19 04:29 Creatinine 0.6 mg/dL (0.7-1.2) L 02/24/19 04:29 Estimated GFR > 60 ml/min 02/24/19 04:29 BUN/Creatinine Ratio 15 % 02/24/19 04:29 Glucose 46 mg/dL (65-100) L 02/24/19 04:29 Hemoglobin A1c 5.5 % (4-6) 02/23/19 22:42 Calcium 8.9 mg/dL (8.4-10.2) 02/24/19 04:29 Total Bilirubin 0.50 mg/dL (0.1-1.2) 02/24/19 04:29 AST 17 units/L (5-40) 02/24/19 04:29 ALT 12 units/L (7-56) 02/24/19 04:29 Alkaline Phosphatase 72 units/L (35-129) 02/24/19 04:29 Troponin T < 0.010 ng/mL (0.00-0.029) 02/23/19 12:34 Total Protein 6.5 g/dL (6.3-8.2) 02/24/19 04:29 Albumin 3.4 g/dL (3.9-5) L 02/24/19 04:29 Albumin/Globulin Ratio 1.1 % 02/24/19 04:29 Short CBC 02/24/19 Range/Units 04:29 WBC 7.0 (4.5-11.0) K/mm3 Hgb 13.1 (10.1-14.3) gm/dl Hct 36.9 (30.3-42.9) % Plt Count 225 (140-440) K/mm3 BMP 02/23/19 02/24/19 07:18 04:29 Sodium 137 137 Potassium 3.9 3.2 L Chloride 103.9 101.3 Carbon Dioxide 18 L 19 L BUN 8 9 Creatinine 0.6 L 0.6 L Glucose 111 H 46 L Calcium 9.1 8.9 Cardiac Enzymes 02/23/19 02/23/19 02/23/19 Range/Units 07:18 10:05 12:34 Troponin T < 0.010 < 0.010 < 0.010 (0.00-0.029) ng/mL Liver Function 02/24/19 Range/Units 04:29 Total Bilirubin 0.50 (0.1-1.2) mg/dL AST 17 (5-40) units/L ALT 12 (7-56) units/L Alkaline Phosphatase 72 (35-129) units/L Albumin 3.4 L (3.9-5) g/dL - Imaging and Cardiology EKG: report reviewed (78/min NSR) Chest x-ray: report reviewed (NAF) CT scan - abdomen: report reviewed Imaging and Cardiology: CT abdomen IMPRESSION: * Subcentimeter low-density lesions in the liver. Hepatic lesions are nonspecific. Differential diagnosis includes cysts, hemangiomas, pseudotumors associated with fatty infiltration and also benign and malignant tumors. Cysts and hemangiomas favored. * Slight cortical irregularity and decreased cortical enhancement in the mid right kidney may represent scarring, infection, or nonenhancing lesion. Please correlate for possible pyelonephritis. Bladder is collapsed and not adequately evaluated. * Scarring with nodularity o r nodular scarring in the medial right lower lobe is nonspecific. Comparison with priors or short-term interval follow-up is recommended clinically indicated. This document is electronically signed by Tan Way MD., February 23 2019 02:27:40 PM ET Assessment and Plan Advance Directives: Yes (Full code) - Patient Problems (1) Chest pain Current Visit: Yes Status: Acute Qualifiers: Chest pain type: chest pain due to myocardial ischemia Ischemic chest pain type: unspecified angina pectoris type Qualified Code(s): I25.9 - Chronic ischemic heart disease, unspecified Plan to address problem: Chest pain protocol Lexiscan in AM serial troponins GERD and costochondritis in differential diagnosisi (2) HTN (hypertension) Current Visit: Yes Status: Chronic Qualifiers: Hypertension type: essential hypertension Qualified Code(s): I10 - Essential (primary) hypertension Plan to address problem: Cont antihypertensives (3) HLD (hyperlipidemia) Current Visit: Yes Status: Chronic Qualifiers: Hyperlipidemia type: mixed hyperlipidemia Qualified Code(s): E78.2 - Mixed hyperlipidemia Plan to address problem: On Statins (4) GERD (gastroesophageal reflux disease) Current Visit: Yes Status: Chronic Qualifiers: Esophagitis presence: without esophagitis Qualified Code(s): K21.9 - Gastro-esophageal reflux disease without esophagitis Plan to address problem: On PPI's (5) DVT prophylaxis Current Visit: No Status: Acute Plan to address problem: on Lovenox and GI prophylaxis
[2019-02-24] MEDS ORDERED: LEXISCAN IV ONE (09:00)
[2019-02-24] MEDS ORDERED: K-DUR PO NR (09:30)
[2019-02-24 09:53] VITALS: BP 139/82
[2019-02-24] MEDS ORDERED: LASIX PO SCH (10:00)
[2019-02-24] MEDS ORDERED: ZAROXOLYN PO SCH (10:00)
[2019-02-24] MEDS ORDERED: COREG PO SCH (10:00)
[2019-02-24] MEDS ORDERED: IMDUR PO SCH (10:00)
[2019-02-24] MEDS ORDERED: SODIUM CHLORIDE FLUSH SYRINGE 10 ML IV SCH (10:00)
[2019-02-24] MEDS ORDERED: PLAVIX PO SCH (10:00)
[2019-02-24] MEDS ORDERED: ALDACTONE PO SCH (10:00)
[2019-02-24] MEDS ORDERED: FOLVITE PO SCH (10:00)
[2019-02-24] MEDS ORDERED: K-DUR PO ONE (11:25)
--- NOTE | 2019-02-24 11:35 | Progress Note ---
Assessment and Plan Assessment and plan: --Atypical chest pain; rule out acute coronary syndrome Serial cardiac enzymes, follow-up echocardiogram in stress test Continue current cardiac medications --Hypertension; moderate control, continue current antihypertensives and when necessary medications --Dyslipidemia; stable on statin Gastroesophageal reflux disease; continue protonic We'll closely monitor the patient and adjust the management as needed Stress test if it is negative and patient is stable may be discharged home today History Interval history: Patient seen and examined medical records reviewed Admitted with atypical chest pain and underwent stress test. Awaiting report Patient feels better denies any chest pain or shortness of breath Alert awake oriented 3 Vital signs reviewed Hospitalist Physical - Constitutional Vitals: Temp Pulse Resp BP Pulse Ox 97 F L 18 L 18 139/82 91 02/24/19 00:22 02/24/19 00:22 02/23/19 23:40 02/24/19 09:11 02/24/19 00:22 General appearance: Present: no acute distress, mild distress, severe distress, well-nourished - EENT Eyes: Present: PERRL, EOM intact, irregular pupil ENT: hearing intact - Neck Neck: Present: supple, normal ROM - Respiratory Respiratory effort: normal Respiratory: bilateral: diminished, negative: rales, rhonchi, wheezing - Cardiovascular Rhythm: regular Heart Sounds: Present: S1 & S2 - Extremities Extremities: no ischemia, No edema - Abdominal General gastrointestinal: soft, non-tender, non-distended, normal bowel sounds - Integumentary Integumentary: Present: clear, warm - Psychiatric Psychiatric: appropriate mood/affect, cooperative - Neurologic Neurologic: CNII-XII intact, moves all extremities Results - Labs CBC & Chem 7: 02/24/19 04:29 02/24/19 04:29 Labs: Laboratory Last Values WBC 7.0 K/mm3 (4.5-11.0) 02/24/19 04:29 RBC 3.80 M/mm3 (3.65-5.03) 02/24/19 04:29 Hgb 13.1 gm/dl (10.1-14.3) 02/24/19 04:29 Hct 36.9 % (30.3-42.9) 02/24/19 04:29 MCV 97 fl (79-97) 02/24/19 04:29 MCH 34 pg (28-32) H 02/24/19 04:29 MCHC 35 % (30-34) H 02/24/19 04:29 RDW 13.3 % (13.2-15.2) 02/24/19 04:29 Plt Count 225 K/mm3 (140-440) 02/24/19 04:29 Lymph % (Auto) 30.0 % (13.4-35.0) 02/24/19 04:29 [place] % (Auto) 9.1 % (0.0-7.3) H 02/24/19 04:29 Eos % (Auto) 0.2 % (0.0-4.3) 02/24/19 04:29 Baso % (Auto) 0.2 % (0.0-1.8) 02/24/19 04:29 Lymph # 2.1 K/mm3 (1.2-5.4) 02/24/19 04:29 [place] # 0.6 K/mm3 (0.0-0.8) 02/24/19 04:29 Eos # 0.0 K/mm3 (0.0-0.4) 02/24/19 04:29 Baso # 0.0 K/mm3 (0.0-0.1) 02/24/19 04:29 Seg Neutrophils % 60.5 % (40.0-70.0) 02/24/19 04:29 Seg Neutrophils # 4.2 K/mm3 (1.8-7.7) 02/24/19 04:29 Sodium 137 mmol/L (137-145) 02/24/19 04:29 Potassium 3.2 mmol/L (3.6-5.0) L 02/24/19 04:29 Chloride 101.3 mmol/L (98-107) 02/24/19 04:29 Carbon Dioxide 19 mmol/L (22-30) L 02/24/19 04:29 Anion Gap 20 mmol/L 02/24/19 04:29 BUN 9 mg/dL (7-17) 02/24/19 04:29 Creatinine 0.6 mg/dL (0.7-1.2) L 02/24/19 04:29 Estimated GFR > 60 ml/min 02/24/19 04:29 BUN/Creatinine Ratio 15 % 02/24/19 04:29 Glucose 46 mg/dL (65-100) L 02/24/19 04:29 Hemoglobin A1c 5.5 % (4-6) 02/23/19 22:42 Calcium 8.9 mg/dL (8.4-10.2) 02/24/19 04:29 Total Bilirubin 0.50 mg/dL (0.1-1.2) 02/24/19 04:29 AST 17 units/L (5-40) 02/24/19 04:29 ALT 12 units/L (7-56) 02/24/19 04:29 Alkaline Phosphatase 72 units/L (35-129) 02/24/19 04:29 Troponin T < 0.010 ng/mL (0.00-0.029) 02/23/19 12:34 Total Protein 6.5 g/dL (6.3-8.2) 02/24/19 04:29 Albumin 3.4 g/dL (3.9-5) L 02/24/19 04:29 Albumin/Globulin Ratio 1.1 % 02/24/19 04:29 Active Medications - Current Medications Current Medications: Generic Name Dose Route Start Last Admin Trade Name Freq PRN Reason Stop Dose Admin Acetaminophen 650 mg 02/23/19 22:22 Tylenol PO Q4H PRN Pain MILD(1-3)/Fever >100.5/MORAES Carvedilol 25 mg 02/24/19 10:00 Coreg PO BID [facility] Clopidogrel Bisulfate 75 mg 02/24/19 10:00 Plavix PO DAILY [facility] Enoxaparin Sodium 40 mg 02/23/19 16:00 02/23/19 17:40 Lovenox SUB-Q 40 mg QDAY@1000 [facility] Administration Famotidine 20 mg 02/23/19 23:00 02/23/19 22:50 Pepcid PO 20 mg BID [facility] Administration Folic Acid 1 mg 02/24/19 10:00 Folvite PO QDAY [facility] Furosemide 40 mg 02/24/19 10:00 Lasix PO QDAY [facility] Hydromorphone HCl 0.5 mg 02/23/19 22:22 Dilaudid IV Q3H PRN Pain , Severe (7-10) Isosorbide Mononitrate 120 mg 02/24/19 10:00 Imdur PO QAM [facility] Metolazone 2.5 mg 02/24/19 10:00 Zaroxolyn PO QDAY [facility] Miscellaneous Medication 20 meq 02/24/19 10:00 Potassium Chloride [Potassium Chloride] PO QID [facility] Ondansetron HCl 4 mg 02/23/19 22:22 Zofran IV Q8H PRN Nausea And Vomiting Oxycodone/Acetaminophen 1 tab 02/23/19 22:22 Percocet 5/325 PO Q6H PRN Pain, Moderate (4-6) Potassium Chloride 40 meq 02/24/19 11:25 K-Dur PO 02/24/19 11:26 ONCE ONE Sodium Chloride 10 ml 02/24/19 10:00 Sodium Chloride Flush Syringe 10 Ml IV BID [facility] Sodium Chloride 10 ml 02/23/19 22:22 Sodium Chloride Flush Syringe 10 Ml IV PRN PRN LINE FLUSH Spironolactone 25 mg 02/24/19 10:00 Aldactone PO BID [facility]
[2019-02-24] MEDS ORDERED: AFLURIA QUAD 2018-2019 SYRINGE IM ONE (12:00)
[2019-02-24] MEDS: LOVENOX SUB-Q SCH (12:28)
[2019-02-24] MEDS: PEPCID PO SCH (12:32)
--- NOTE | 2019-02-24 16:26 | Discharge Summary ---
Providers - Providers Date of Admission: 02/23/19 15:44 Date of discharge: 02/24/19 Attending physician: ABBEY CARRIZALES Hospitalization Reason for admission: chest pain, back pain Condition: Stable Pertinent studies: Stress test: Fixed defect,scar tissue,EF 33 % CT abdomen: Hepatic lesions,non specific,possible,cysts,hemangioma ,kidney lesions Hospital course: 49-year-old female past medical history of coronary artery disease on Plavix who presents with chest pain and back pain and been going on for last 2 days. Patient states pain is a 10 out of 10 as an achy type of pain patient has been vomiting several times. Patient denies smoking or drinking however she states that she had stents placed in., Symptomatically managed,Had negative stress test ,EF 33%,meds optimised CT abdomen,non specific lesions,possible,hemangiomas,cysts,advised to see GI if any symptoms of Abdominal pain or other GI symptoms. Today patient is better,no new complaints,vital signs noted,Stable at discharge. Discharge Diagnosis: --Atypical chest pain; rule out acute coronary syndrome Serial cardiac enzymes, follow-up echocardiogram in stress test Continue current cardiac medications --Hypertension; moderate control, continue current antihypertensives and when necessary medications --Dyslipidemia; stable on statin --Gastroesophageal reflux disease; continue protonix --Incidental nonspecific lesions Liver,possible,hemangiomas,cysts.adv to see GI if any GI symptoms today patient is stable at discharge Disposition: DC-01 TO HOME OR SELFCARE Time spent for discharge: 32 min Core Measure Documentation - Palliative Care Palliative Care/ Comfort Measures: Not Applicable - Core Measures Any of the following diagnoses?: none Exam - Constitutional Vitals: Temp Pulse Resp BP Pulse Ox 97 F L 85 18 139/82 91 02/24/19 00:22 02/24/19 12:31 02/23/19 23:40 02/24/19 09:11 02/24/19 00:22 General appearance: Present: no acute distress, well-nourished - EENT Eyes: Present: PERRL, EOM intact - Neck Neck: Present: supple, normal ROM - Respiratory Respiratory effort: normal Respiratory: bilateral: diminished, negative: rales, rhonchi, wheezing - Cardiovascular Rhythm: regular Heart Sounds: Present: S1 & S2 - Extremities Extremities: no ischemia, No edema - Abdominal General gastrointestinal: Present: soft, non-tender, non-distended, normal bowel sounds - Integumentary Integumentary: Present: clear, warm - Musculoskeletal Musculoskeletal: strength equal bilaterally - Psychiatric Psychiatric: appropriate mood/affect, cooperative - Neurologic Neurologic: CNII-XII intact, moves all extremities Plan Activity: no restrictions Diet: other (Cardiac diet) Additional Instructions: If you have chest pain or shortness of breath, contact M.D. or go to emergency room [facility] with: [facility] [Other] - 3-5 Days JOSE L FREY MD [Staff Physician] - 7 Days Prescriptions: Lisinopril [Zestril TAB] 5 mg PO QDAY #30 tablet
[2019-02-25] MEDS ORDERED: K-DUR PO SCH (10:00)
--- NOTE | 2019-02-26 22:23 | Treadmill Report ---
NUCLEAR MYOCARDIAL PERFUSION IMAGING REPORT The patient underwent IV Lexiscan myocardial perfusion testing. The patient received technetium pyrophosphate, Tetrofosmin 10.89 uCi during the rest images and received approximately 30 uCi post-stress imaging. Following findings were noted. There is a very large severe anterior defect and also apical defect was noted. This defect was noted both during post-stress and during rest images. Similarly, medium-sized inferolateral defect, which is also severe was noted during post-stress images with very minimal reversibility during the stress. The patient's transient ischemic dilation ratio was found to be 1.11 and markedly dilated left ventricle with diffuse hypokinesis, particularly of the anterior wall noted. Ejection fraction was felt to be 33%. Findings are consistent with [id number] LV dysfunction with large fixed anterior and apical defect and also mostly fixed defect in the inferolateral wall consistent with scar tissue. This was felt to be a medium risk for any future cardiac events. JOB# [id number] NATALIE/RUDI
== END 2019-02-24 18:00 | disposition home or self-care (01) | DRG 311 ==
LOC: ED 06:51 → 4A 15:44
PROVIDERS: ADMIT Internal Medicine; ATTEND Internal Medicine
DX: I24.9 Acute ischemic heart disease, unspecified (principal); I11.0 Hypertensive heart disease with heart failure; I42.8 Other cardiomyopathies; I25.10 Atherosclerotic heart disease of native coronary artery without angina pectoris; I50.9 Heart failure, unspecified; E78.2 Mixed hyperlipidemia; K21.9 Gastro-esophageal reflux disease without esophagitis; Z79.82 Long term (current) use of aspirin; Z79.899 Other long term (current) drug therapy; Z88.8 Allergy status to other drugs, medicaments and biological substances; Z86.73 Personal history of transient ischemic attack (TIA), and cerebral infarction without residual deficits; Z95.5 Presence of coronary angioplasty implant and graft; Z95.810 Presence of automatic (implantable) cardiac defibrillator
CPT/HCPCS: 36415; 71045; 74177; 78452; 80048; 80053; 83036; 84484; 85025; 90686; 93005; 93010; 93017; G0378; A9502; J1650; J2270; J2405; J2785; J3010; J7030; Q9967

== ENCOUNTER 2019-07-13 21:24 | Emergency (ER) | payer OTHER, MEDICAID ==
[2019-07-13 21:29] VITALS: BP 115/79
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
--- NOTE | 2019-07-13 23:17 | Cat Scan Report ---
CT cervical spine wo con INDICATION: pain. TECHNIQUE: All CT scans at this location are performed using the following dose modulation technique: Automated exposure control. CONTRAST: None. COMPARISON: None available. FINDINGS: Satisfactory alignment without vertebral compression or significant disc space narrowing. A nterior spurring is greatest at C6-C7. Negative for acute soft tissue abnormality. IMPRESSION: Negative for acute injury. Signer Name: Jakob Carter MD Signed: 07/13/2019 11:12 PM Workstation Name: [employer] [facility] [id number]
[2019-07-14] MEDS ORDERED: PERCOCET 5/325 PO STA (00:36)
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
== END 2019-07-14 01:00 | disposition home or self-care (01) ==
LOC: ED 21:24
DX: M54.2 Cervicalgia (principal); I25.2 Old myocardial infarction; I11.0 Hypertensive heart disease with heart failure; I50.9 Heart failure, unspecified; Z86.79 Personal history of other diseases of the circulatory system; Z86.73 Personal history of transient ischemic attack (TIA), and cerebral infarction without residual deficits; Z95.5 Presence of coronary angioplasty implant and graft; Z95.810 Presence of automatic (implantable) cardiac defibrillator; Z79.899 Other long term (current) drug therapy; V49.49XA Driver injured in collision with other motor vehicles in traffic accident, initial encounter; Y93.89 Activity, other specified; Y92.410 Unspecified street and highway as the place of occurrence of the external cause; Y99.8 Other external cause status
CPT/HCPCS: 72125

== ENCOUNTER 2019-08-27 14:17 | Emergency (ER) | payer MEDICAID ==
--- NOTE | 2019-08-27 14:26 | Event Note ---
ED Screening Note Date of service: 08/27/19 Time: 14:25 ED Screening Note: 49 y/o female comes in for back pain that started last night. Denies any know injury. This initial assessment/diagnostic orders/clinical plan/treatment(s) is/are subject to change based on patients health status, clinical progression and re- assessment by fellow clinical providers in the ED. Further treatment and workup at subsequent clinical providers discretion. Patient/guardian urged not to elope from the ED as their condition may be serious if not clinically assessed and managed. Initial orders include:
[2019-08-27 14:27] VITALS: BP 112/69
[2019-08-27] MEDS ORDERED: KETOROLAC 30 MG/1 ML INJ IM ONE (15:27)
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
== END 2019-08-27 17:27 | disposition home or self-care (01) ==
LOC: ED 14:17
DX: M54.5 Low back pain (principal); I11.0 Hypertensive heart disease with heart failure; I50.9 Heart failure, unspecified; Z79.899 Other long term (current) drug therapy; Z95.1 Presence of aortocoronary bypass graft; Z86.73 Personal history of transient ischemic attack (TIA), and cerebral infarction without residual deficits
CPT/HCPCS: 96372; 99282; J1885

== ENCOUNTER 2019-09-15 06:33 | Emergency (ER) | payer MEDICAID ==
[2019-09-15] MEDS ORDERED: ASPIRIN 325 MG TAB PO ONE (06:49)
[2019-09-15 07:34] LABS: Basophils % (Auto) 0.3 % (0.0-1.8); Eosinophils % (Auto) 0.8 % (0.0-4.3); Hematocrit 43.8 % (30.3-42.9); Hemoglobin 14.7 gm/dl (10.1-14.3); Lymphocytes % (Auto) 17.9 % (13.4-35.0); Mean Corpuscular HGB Conc 34 % (30-34); Mean Corpuscular Volume 98 fl (79-97); Monocytes # (Auto) 0.7 K/mm3 (0.0-0.8); Platelet Count 203 K/mm3 (140-440); Red Blood Count 4.46 M/mm3 (3.65-5.03); Red Cell Distribution Width 12.7 % (13.2-15.2)
--- NOTE | 2019-09-15 07:52 | XRay Report ---
CHEST 1 VIEW INDICATION: Chest Pain. COMPARISON: 02/23/2019 FINDINGS: Support devices: Stable satisfactory device positioning. Heart: Within normal limits. Lungs/Pleura: No acute air space or interstitial disease. Additional findings: None. IMPRESSION: 1. No acute findings. Signer Name: Daren Baugh MD Signed: 09/15/2019 7:47 AM Workstation Name: [id number]
[2019-09-15 07:54] LABS: BUN/Creatinine Ratio 15; Blood Urea Nitrogen 12 mg/dL (7-17); Calcium 9.2 mg/dL (8.4-10.2); Hemolysis Index 3
--- NOTE | 2019-09-15 08:02 | Emergency Department Report ---
ED General Adult HPI - General Chief complaint: Nausea/Vomiting/Diarrhea Stated complaint: VOMITING W/BACK PAIN Time Seen by Provider: 09/15/19 07:55 Source: patient Mode of arrival: Ambulatory Limitations: No Limitations - History of Present Illness Initial comments: This is a 49-year-old female complains of lower back pain nausea and vomiting. She has been admitted to this facility with similar symptoms in the past. It appears that she essentially had a negative workup for acute pathology as the discharge summary to follow indicates. Today she does not complain of chest pain whatsoever nor abdominal pain. She states that she has lower back pain but does not take any chronic pain medicine. She began vomiting last night. Her back pain is chronic and really not acutely exacerbated. She stated at triage that her abdomen felt uncomfortable but only after vomiting. She did not complain of abdominal pain to me whatsoever. She denied dysuria. She denied fever or chills. She denied diarrhea. She denies any signs of GI bleeding. She has not been short of breath. Per similar complaint based hospitalization: Hospitalization Reason for admission: chest pain, back pain Condition: Stable Pertinent studies: Stress test: Fixed defect,scar tissue,EF 33 % CT abdomen: Hepatic lesions,non specific,possible,cysts,hemangioma ,kidney lesions Hospital course: 49-year-old female past medical history of coronary artery disease on Plavix who presents with chest pain and back pain and been going on for last 2 days. Patient states pain is a 10 out of 10 as an achy type of pain patient has been vomiting several times. Patient denies smoking or drinking however she states that she had stents placed in., Symptomatically managed,Had negative stress test ,EF 33%,meds optimised CT abdomen,non specific lesions,possible,karen ngiomas,cysts,advised to see GI if any symptoms of Abdominal pain or other GI symptoms. Today patient is better,no new complaints,vital signs noted,Stable at discharge. Discharge Diagnosis: --Atypical chest pain; rule out acute coronary syndrome Serial cardiac enzymes, follow-up echocardiogram in stress test Continue current cardiac medications --Hypertension; moderate control, continue current antihypertensives and when necessary medications --Dyslipidemia; stable on statin --Gastroesophageal reflux disease; continue protonix --Incidental nonspecific lesions Liver,possible,hemangiomas,cysts.adv to see GI if any GI symptoms -: Gradual, hour(s) Location: back Quality: aching Consistency: intermittent (and recurrent) Improves with: none Worsens with: none Associated Symptoms: denies other symptoms, nausea/vomiting Treatments Prior to Arrival: none - Related Data Home Medications Medication Instructions Recorded Confirmed Last Taken Clopidogrel Bisulfate [Plavix] 75 mg PO DAILY 02/23/14 02/23/19 07/25/15 75 MG Carvedilol [Coreg] 25 mg PO BID 02/23/19 02/23/19 Unknown Furosemide [Lasix TAB] 40 mg PO QDAY 02/23/19 02/23/19 Unknown ISOSORBIDE MONOnitrate [Imdur ER] 120 mg PO QAM 02/23/19 02/23/19 Unknown Nitroglycerin 0.3 mg SL PRN PRN 02/23/19 02/23/19 Unknown Potassium Chloride 20 meq PO QID 02/23/19 02/23/19 Unknown Spironolactone [Aldactone] 25 mg PO BID 02/23/19 02/23/19 Unknown metOLazone [Metolazone] 2.5 mg PO QDAY 02/23/19 02/23/19 Unknown Previous Rx's Medication Instructions Recorded Last Taken Type Folic Acid [Folvite] 1 mg PO QDAY #30 tablet 07/27/15 Unknown Rx Lisinopril [Zestril TAB] 5 mg PO QDAY #30 tablet 02/24/19 Unknown Rx Ketorolac [Toradol] 10 mg PO Q6H PRN #15 tablet 07/14/19 Unknown Rx methOCARBAMOL [Robaxin TAB] 750 mg PO Q8H PRN #14 tablet 07/14/19 Unknown Rx Cyclobenzaprine [Flexeril] 10 mg PO TID PRN #20 tablet 08/27/19 Unknown Rx Ibuprofen [Motrin] 800 mg PO TID #15 tablet 08/27/19 Unknown Rx oxyCODONE /ACETAMINOPHEN [Percocet 1 tab PO Q6HR PRN #10 tablet 08/27/19 Unknown Rx 5/325] Ondansetron [Zofran Odt] 4 mg PO Q6H PRN #10 tab.rapdis 09/15/19 Unknown Rx traMADol [Ultram 50 MG tab] 50 mg PO Q6HR PRN #10 tablet 09/15/19 Unknown Rx Allergies Allergy/AdvReac Type Severity Reaction Status Date / Time No Known Allergies Allergy Verified 07/06/14 09:55 ED Review of Systems ROS: Stated complaint: VOMITING W/BACK PAIN Other details as noted in HPI Constitutional: denies: chills, fever Eyes: denies: eye pain, eye discharge, vision change ENT: denies: ear pain, throat pain Respiratory: denies: cough, shortness of breath, wheezing Cardiovascular: denies: chest pain, palpitations Endocrine: no symptoms reported Gastrointestinal: nausea, vomiting. denies: abdominal pain, diarrhea Genitourinary: denies: urgency, dysuria, discharge Musculoskeletal: back pain. denies: joint swelling, arthralgia Skin: denies: rash, lesions Neurological: denies: headache, weakness, paresthesias Psychiatric: denies: anxiety, depression Hematological/Lymphatic: denies: easy bleeding, easy bruising ED Past Medical Hx - Past Medical History Previous Medical History?: Yes Hx Hypertension: Yes Hx CVA: Yes (2014, no deficits) Hx Heart Attack/AMI: Yes Hx Congestive Heart Failure: Yes Hx Renal Disease: No Hx Asthma: No Hx COPD: No Additional medical history: CVD. High cholestrol - Surgical History Past Surgical History?: Yes Hx Coronary Stent: Yes (x1) Hx Pacemaker: Yes Hx Internal Defibrillator: Yes Additional Surgical History: stent x 1, placed in 2008. Defribrilator - Social History Smoking Status: Never Smoker Substance Use Type: Alcohol - Medications Home Medications: Home Medications Medication Instructions Recorded Confirmed Last Taken Type Clopidogrel Bisulfate [Plavix] 75 mg PO DAILY 02/23/14 02/23/19 07/25/15 History 75 MG Folic Acid [Folvite] 1 mg PO QDAY #30 tablet 07/27/15 02/23/19 Unknown Rx Carvedilol [Coreg] 25 mg PO BID 02/23/19 02/23/19 Unknown History Furosemide [Lasix TAB] 40 mg PO QDAY 02/23/19 02/23/19 Unknown History ISOSORBIDE MONOnitrate [Imdur ER] 120 mg PO QAM 02/23/19 02/23/19 Unknown History Nitroglycerin 0.3 mg SL PRN PRN 02/23/19 02/23/19 Unknown History Potassium Chloride 20 meq PO QID 02/23/19 02/23/19 Unknown History Spironolactone [Aldactone] 25 mg PO BID 02/23/19 02/23/19 Unknown History metOLazone [Metolazone] 2.5 mg PO QDAY 02/23/19 02/23/19 Unknown History Lisinopril [Zestril TAB] 5 mg PO QDAY #30 tablet 02/24/19 Unknown Rx Ketorolac [Toradol] 10 mg PO Q6H PRN #15 tablet 07/14/19 Unknown Rx methOCARBAMOL [Robaxin TAB] 750 mg PO Q8H PRN #14 tablet 07/14/19 Unknown Rx Cyclobenzaprine [Flexeril] 10 mg PO TID PRN #20 tablet 08/27/19 Unknown Rx Ibuprofen [Motrin] 800 mg PO TID #15 tablet 08/27/19 Unknown Rx oxyCODONE /ACETAMINOPHEN [Percocet 1 tab PO Q6HR PRN #10 tablet 08/27/19 Unknown Rx 5/325] Ondansetron [Zofran Odt] 4 mg PO Q6H PRN #10 tab.rapdis 09/15/19 Unknown Rx traMADol [Ultram 50 MG tab] 50 mg PO Q6HR PRN #10 tablet 09/15/19 Unknown Rx ED Physical Exam - General Limitations: No Limitations General appearance: alert, in no apparent distress - Head Head exam: Present: atraumatic, normocephalic - Eye Eye exam: Present: normal appearance. Absent: scleral icterus - ENT ENT exam: Present: mucous membranes moist - Neck Neck exam: Present: normal inspection - Respiratory Respiratory exam: Present: normal lung sounds bilaterally. Absent: respiratory distress - Cardiovascular Cardiovascular Exam: Present: regular rate, normal rhythm. Absent: systolic m urmur, diastolic murmur, rubs, gallop - GI/Abdominal GI/Abdominal exam: Present: soft, normal bowel sounds. Absent: distended, tenderness, guarding, rebound, rigid - Extremities Exam Extremities exam: Present: normal inspection - Back Exam Back exam: Present: normal inspection. Absent: CVA tenderness (R), CVA tenderness (L), muscle spasm, paraspinal tenderness, vertebral tenderness - Neurological Exam Neurological exam: Present: alert, oriented X3, CN II-XII intact. Absent: motor sensory deficit - Psychiatric Psychiatric exam: Present: normal affect, normal mood - Skin Skin exam: Present: warm, dry, intact, normal color. Absent: rash ED Course Vital Signs 09/15/19 09/15/19 09/15/19 06:39 07:30 07:43 Temperature 97.3 F L 97.7 F Pulse Rate 95 H 77 79 Respiratory 18 19 19 Rate Blood Pressure 121/84 Blood Pressure 133/88 [Left] O2 Sat by Pulse 99 99 99 Oximetry 09/15/19 09/15/19 09/15/19 07:45 08:00 08:15 Temperature Pulse Rate 71 63 66 Respiratory 20 21 18 Rate Blood Pressure 140/89 140/89 144/96 Blood Pressure [Left] O2 Sat by Pulse 100 100 98 Oximetry 09/15/19 09/15/19 09/15/19 08:31 08:45 09:01 Temperature Pulse Rate 77 75 Respiratory 14 20 13 Rate Blood Pressure 120/66 120/66 105/69 Blood Pressure [Left] O2 Sat by Pulse 100 100 100 Oximetry 09/15/19 09/15/19 09/15/19 09:15 09:28 09:31 Temperature Pulse Rate Respiratory 14 20 13 Rate Blood Pressure 105/69 128/62 Blood Pressure [Left] O2 Sat by Pulse 100 99 Oximetry 09/15/19 09/15/19 09/15/19 09:45 09:58 10:01 Temperature Pulse Rate Respiratory 18 16 Rate Blood Pressure 118/68 128/75 Blood Pressure [Left] O2 Sat by Pulse 100 99 Oximetry 09/15/19 09/15/19 09/15/19 10:15 10:31 10:45 Temperature Pulse Rate Respiratory 19 Rate Blood Pressure 128/75 139/83 139/83 Blood Pressure [Left] O2 Sat by Pulse 98 98 100 Oximetry 09/15/19 09/15/19 09/15/19 11:01 11:38 11:45 Temperature Pulse Rate 89 Respiratory 16 20 Rate Blood Pressure 117/79 Blood Pressure [Left] O2 Sat by Pulse 99 100 100 Oximetry 09/15/19 09/15/19 09/15/19 12:01 12:15 12:31 Temperature Pulse Rate 93 H 89 73 Respiratory 21 14 13 Rate Blood Pressure 72/46 Blood Pressure [Left] O2 Sat by Pulse 100 99 100 Oximetry - Reevaluation(s) Reevaluation #1: She did quite well in the emergency department. Her pain resolved with a small amount of Toradol and morphine. She was given IV fluids. She took by mouth well. She stated that she was ready to go home. It is notable that she had cannabinol in her urine. Whether she had a cannabinol hyperemesis syndrome is unknown 09/15/19 13:12 ED Medical Decision Making - Lab Data Result diagrams: 09/15/19 07:07 09/15/19 07:07 Laboratory Results - last 24 hr 09/15/19 09/15/19 09/15/19 07:07 07:07 08:04 WBC 5.4 RBC 4.46 Hgb 14.7 H Hct 43.8 H MCV 98 H MCH 33 H MCHC 34 RDW 12.7 L Plt Count 203 Lymph % (Auto) 17.9 [place] % (Auto) 12.0 H Eos % (Auto) 0.8 Baso % (Auto) 0.3 Lymph # 1.0 L [place] # 0.7 Eos # 0.0 Baso # 0.0 Seg Neutrophils % 69.0 Seg Neutrophils # 3.7 PT 14.6 INR 1.15 H APTT 22.8 L Sodium 136 L Potassium 3.9 Chloride 106.4 Carbon Dioxide 16 L Anion Gap 18 BUN 12 Creatinine 0.8 Estimated GFR > 60 BUN/Creatinine Ratio 15 Glucose 129 H Calcium 9.2 Magnesium Total Bilirubin Direct Bilirubin Indirect Bilirubin AST ALT Alkaline Phosphatase Total Creatine Kinase CK-MB (CK-2) CK-MB (CK-2) Rel Index Troponin T < 0.010 Total Protein Albumin Albumin/Globulin Ratio Lipase 09/15/19 08:04 WBC RBC Hgb Hct MCV MCH MCHC RDW Plt Count Lymph % (Auto) [place] % (Auto) Eos % (Auto) Baso % (Auto) Lymph # [place] # Eos # Baso # Seg Neutrophils % Seg Neutrophils # PT INR APTT Sodium Potassium Chloride Carbon Dioxide Anion Gap BUN Creatinine Estimated GFR BUN/Creatinine Ratio Glucose Calcium Magnesium 2.20 Total Bilirubin 0.40 Direct Bilirubin < 0.2 Indirect Bilirubin 0.2 AST 13 ALT 9 Alkaline Phosphatase 83 Total Creatine Kinase 48 CK-MB (CK-2) 1.1 CK-MB (CK-2) Rel Index 2.2 Troponin T Total Protein 7.2 Albumin 4.2 Albumin/Globulin Ratio 1.4 Lipase 15 - EKG Data -: EKG Interpreted by Or EKG shows normal: sinus rhythm Rate: normal (sinus arrhythmia noted) - EKG Data Interpretation: other (QS in V2 with the usual differential to include. NONSPECIFIC REPOLARIZATION ABNORMALITY) - Radiology Data Radiology results: report reviewed (no acute process) Critical care attestation.: If time is entered above; I have spent that time in minutes in the direct care of this critically ill patient, excluding procedure time. ED Disposition Clinical Impression: Volume depletion Vomiting Qualifiers: Vomiting type: unspecified Vomiting Intractability: non-intractable Nausea presence: with nausea Qualified Code(s): R11.2 - Nausea with vomiting, unspecified Disposition: DC- TO HOME OR SELFCARE Is pt being admited?: No Does the pt Need Aspirin: No Condition: Stable Instructions: Dehydration (ED), Acute Nausea and Vomiting (ED) Additional Instructions: Avoid marijuana use as it can result in protracted vomiting. Rx as directed. Follow-up with your primary care provider or [facility]. Return as needed any recurrent symptoms. Prescriptions: traMADol [Ultram 50 MG tab] 50 mg PO Q6HR PRN #10 tablet PRN Reason: Pain Ondansetron [Zofran Odt] 4 mg PO Q6H PRN #10 tab.rapdis PRN Reason: Nausea Referrals: PRIMARY CARE, [Primary Care Provider] - 3-5 Days Time of Disposition: 13:17
[2019-09-15 08:24] LABS: INR 1.15 (0.87-1.13); Partial Thromboplastin Time 22.8 Sec. (24.2-36.6)
[2019-09-15] MEDS ORDERED: MORPHINE 2 MG/1 ML INJ IV ONE (08:31)
[2019-09-15] MEDS ORDERED: ONDANSETRON 4 MG/2 ML INJ IV ONE ×2 (08:31→10:02)
[2019-09-15] MEDS ORDERED: PANTOPRAZOLE 40 MG INJ IV ONE (08:31)
[2019-09-15 08:47] LABS: Creatine Kinase MB 1.1 ng/mL (0.0-4.0)
[2019-09-15 08:49] LABS: Alanine Aminotransferase 9 units/L (7-56); Albumin 4.2 g/dL (3.9-5)
[2019-09-15 08:50] LABS: Bilirubin,Direct < 0.2 mg/dL (0-0.2)
[2019-09-15] MEDS ORDERED: ASPIRIN 325 MG TAB ONE (09:42)
[2019-09-15] MEDS ORDERED: METOCLOPRAMIDE 10 MG/2 ML INJ IV ONE (10:02)
[2019-09-15] MEDS ORDERED: SODIUM CHLORIDE 0.9% 1000 ML 1,000 ML IV ONE (10:16)
[2019-09-15 11:39] LABS: Bacteria,Urine 1+ /HPF (Negative); Bilirubin,Urine NEG (Negative); Blood,Urine NEG (Negative); Color,Urine Yellow (Yellow); HCG Qualitative,Urine Negative (Negative); Hyaline Casts,Urine 1 /LPF; Mucus,Urine 3+ /HPF
[2019-09-15 11:48] LABS: Amphetamine Screen,Urine PRESUMPTIVE NEGATIVE; Benzodiazepines Screen,Urine PRESUMPTIVE NEGATIVE; Cocaine Screen,Urine PRESUMPTIVE NEGATIVE; Methadone Screen,Urine PRESUMPTIVE NEGATIVE
[2019-09-15 12:01] LABS: Cannabinoid Screen,Urine PRESUMPTIVE POSITIVE; Opiate Screen,Urine PRESUMPTIVE POSITIVE
[2019-09-15 13:36] VITALS: BP 144/86
== END 2019-09-15 13:37 | disposition home or self-care (01) ==
LOC: ED 06:33
DX: E86.9 Volume depletion, unspecified (principal); R11.2 Nausea with vomiting, unspecified; E78.5 Hyperlipidemia, unspecified; I11.0 Hypertensive heart disease with heart failure; I50.9 Heart failure, unspecified; K21.9 Gastro-esophageal reflux disease without esophagitis; Z79.01 Long term (current) use of anticoagulants; Z79.899 Other long term (current) drug therapy; Z95.1 Presence of aortocoronary bypass graft
CPT/HCPCS: 36415; 71045; 80048; 80076; 80307; 81001; 81025; 82550; 82553; 83690; 83735; 84484; 85025; 85610; 85730; 93005; 93010; 96361; 96374; 96375; 96376; 99284; C9113; J2270; J2405; J2765; J7030

== ENCOUNTER 2019-09-17 15:13 | Emergency (ER) | payer MEDICAID ==
--- NOTE | 2019-09-17 15:45 | Emergency Department Report ---
Chief Complaint: Chest Pain Stated Complaint: CP/MARYANNE - HPI History of Present Illness: 49yo BF states that she has CP along with N&V x 1 day. MSE screening note: Focused history and physical exam performed. Due to findings the following was ordered: ED Disposition for MSE Condition: Stable
[2019-09-17] MEDS ORDERED: ASPIRIN 325 MG TAB PO ONE (15:50)
--- NOTE | 2019-09-17 16:12 | XRay Report ---
CHEST 1 VIEW 4:08 PM INDICATION / CLINICAL INFORMATION: Chest pain, shortness breath and nausea. COMPARISON: 09/15/2019. FINDINGS: SUPPORT DEVICES: The position of the dual chamber left subclavian ICD has not changed. HEART / MEDIASTINUM: The heart size is the upper limits of normal. The aorta is normal in caliber. Pu lmonary vasculature is normal. LUNGS / PLEURA: No significant pulmonary or pleural abnormality. No pneumothorax. ADDITIONAL FINDINGS: No significant additional findings. IMPRESSION: No acute abnormality or significant change. Signer Name: David Truong MD Signed: 09/17/2019 4:08 PM Workstation Name: [id number]
[2019-09-17 16:45] LABS: Basophils # (Auto) 0.1 K/mm3 (0.0-0.1); Basophils % (Auto) 0.7 % (0.0-1.8); Eosinophils # (Auto) 0.1 K/mm3 (0.0-0.4); Hematocrit 43.7 % (30.3-42.9); Hemoglobin 14.9 gm/dl (10.1-14.3); Lymphocytes # (Auto) 1.6 K/mm3 (1.2-5.4); Lymphocytes % (Auto) 15.2 % (13.4-35.0); Mean Corpuscular HGB Conc 34 % (30-34); Mean Corpuscular Volume 97 fl (79-97); Monocytes # (Auto) 1.1 K/mm3 (0.0-0.8); Monocytes % (Auto) 9.7 % (0.0-7.3); Platelet Count 180 K/mm3 (140-440); Red Blood Count 4.49 M/mm3 (3.65-5.03); Red Cell Distribution Width 12.6 % (13.2-15.2)
[2019-09-17 17:03] LABS: BUN/Creatinine Ratio 20; Blood Urea Nitrogen 16 mg/dL (7-17); Calcium 9.1 mg/dL (8.4-10.2); Hemolysis Index 14
[2019-09-17] MEDS ORDERED: ONDANSETRON 4 MG/2 ML INJ IV ONE ×2 (17:53→19:22)
[2019-09-17] MEDS ORDERED: HYDROmorphone 1 MG/1 ML INJ IV ONE ×2 (17:53→19:22)
[2019-09-17] MEDS ORDERED: FAMOTIDINE 20 MG/2 ML INJ IV ONE (17:53)
[2019-09-17] MEDS ORDERED: SODIUM CHLORIDE 0.9% 500 ML 500 ML IV ONE (18:19)
[2019-09-17 19:42] LABS: Alanine Aminotransferase 11 units/L (7-56); Albumin 3.9 g/dL (3.9-5)
[2019-09-17 19:46] LABS: Bilirubin,Direct < 0.2 mg/dL (0-0.2)
--- NOTE | 2019-09-17 20:13 | Emergency Department Report ---
ED Chest Pain HPI - General Chief Complaint: Chest Pain Stated Complaint: CP/MARYANNE Time Seen by Provider: 09/17/19 17:29 Source: patient, old records reviewed Mode of arrival: Wheelchair Limitations: No Limitations - History of Present Illness Initial Comments: 49-year-old female with a past medical history of CHF EF of 33% on stress test 02/2019, CVA without residual deficits, hypertension, elevated cholesterol, CAD with stent placement and defibrillator presents to the hospital complains of chest pain with nausea vomiting. Patient started to have nausea vomiting at 12 PM followed by left-sided dull constant chest pain. Mild shortness of breath du e to pain. Pain is also sharp and worse with palpation and movement. She complains of some mild shortness of breath. She denies melena, medications here, diarrhea, hematemesis, or abdominal pain. Patient was here August 27 for acute on chronic back pain and September 15 for back pain with nausea and vomiting. Pt had UDS is positive for marijuana at that time with suspicion for hyperemesis syndrome secondary to cannabis. She was admitted here in February for chest pain and had a stress test that showed fixed defects without acute ischemia. Patient had a cardiac cath 03/03/2014 showed a patent stent in the proximal LAD and EF is 15-20% at that time. Severity scale (0 -10): 9 - Related Data Home Medications Medication Instructions Recorded Confirmed Last Taken Clopidogrel Bisulfate [Plavix] 75 mg PO DAILY 02/23/14 02/23/19 07/25/15 75 MG Carvedilol [Coreg] 25 mg PO BID 02/23/19 02/23/19 Unknown Furosemide [Lasix TAB] 40 mg PO QDAY 02/23/19 02/23/19 Unknown ISOSORBIDE MONOnitrate [Imdur ER] 120 mg PO QAM 02/23/19 02/23/19 Unknown Nitroglycerin 0.3 mg SL PRN PRN 02/23/19 02/23/19 Unknown Potassium Chloride 20 meq PO QID 02/23/19 02/23/19 Unknown Spironolactone [Aldactone] 25 mg PO BID 02/23/19 02/23/19 Unknown metOLazone [Metolazone] 2.5 mg PO QDAY 02/23/19 02/23/19 Unknown Previous Rx's Medication Instructions Recorded Last Taken Type Folic Acid [Folvite] 1 mg PO QDAY #30 tablet 07/27/15 Unknown Rx Lisinopril [Zestril TAB] 5 mg PO QDAY #30 tablet 02/24/19 Unknown Rx Ketorolac [Toradol] 10 mg PO Q6H PRN #15 tablet 07/14/19 Unknown Rx methOCARBAMOL [Robaxin TAB] 750 mg PO Q8H PRN #14 tablet 07/14/19 Unknown Rx Cyclobenzaprine [Flexeril] 10 mg PO TID PRN #20 tablet 08/27/19 Unknown Rx Ibuprofen [Motrin] 800 mg PO TID #15 tablet 08/27/19 Unknown Rx oxyCODONE /ACETAMINOPHEN [Percocet 1 tab PO Q6HR PRN #10 tablet 08/27/19 Unknown Rx 5/325] Ondansetron [Zofran Odt] 4 mg PO Q6H PRN #10 tab.rapdis 09/15/19 Unknown Rx traMADol [Ultram 50 MG tab] 50 mg PO Q6HR PRN #10 tablet 09/15/19 Unknown Rx HYDROcodone/APAP 5-325 [[place] 1 each PO Q6HR PRN #14 tablet 09/17/19 Unknown Rx 5/325] Ondansetron [Zofran Odt] 4 mg PO Q8HR PRN #20 tab.rapdis 09/17/19 Unknown Rx Allergies Allergy/AdvReac Type Severity Reaction Status Date / Time No Known Allergies Allergy Verified 07/06/14 09:55 Heart Score - HEART Score History: Slightly suspicious EKG: Non-specific (but unchanged) Age: 45-65 Risk factors: > 3 risk factors or hx of atherosclerotic disease Troponin: < normal limit HEART Score: 4 ED Review of Systems ROS: Stated complaint: CP/MARYANNE Other details as noted in HPI Comment: All other systems reviewed and negative ED Past Medical Hx - Past Medical History Previous Medical History?: Yes Hx Hypertension: Yes Hx CVA: Yes (2014, no deficits) Hx Heart Attack/AMI: Yes Hx Congestive Heart Failure: Yes Hx Renal Disease: No Hx Asthma: No Hx COPD: No Additional medical history: CVD. High cholestrol - Surgical History Past Surgical History?: Yes Hx Coronary Stent: Yes (x1) Hx Pacemaker: Yes Hx Internal Defibrillator: Yes Additional Surgical History: stent x 1, placed in 2008. Defribrilator - Social History Smoking Status: Never Smoker Substance Use Type: None - Medications Home Medications: Home Medications Medication Instructions Recorded Confirmed Last Taken Type Clopidogrel Bisulfate [Plavix] 75 mg PO DAILY 02/23/14 02/23/19 07/25/15 History 75 MG Folic Acid [Folvite] 1 mg PO QDAY #30 tablet 07/27/15 02/23/19 Unknown Rx Carvedilol [Coreg] 25 mg PO BID 02/23/19 02/23/19 Unknown History Furosemide [Lasix TAB] 40 mg PO QDAY 02/23/19 02/23/19 Unknown History ISOSORBIDE MONOnitrate [Imdur ER] 120 mg PO QAM 02/23/19 02/23/19 Unknown History Nitroglycerin 0.3 mg SL PRN PRN 02/23/19 02/23/19 Unknown History Potassium Chloride 20 meq PO QID 02/23/19 02/23/19 Unknown History Spironolactone [Aldactone] 25 mg PO BID 02/23/19 02/23/19 Unknown History metOLazone [Metolazone] 2.5 mg PO QDAY 02/23/19 02/23/19 Unknown History Lisinopril [Zestril TAB] 5 mg PO QDAY #30 tablet 02/24/19 Unknown Rx Ketorolac [Toradol] 10 mg PO Q6H PRN #15 tablet 07/14/19 Unknown Rx methOCARBAMOL [Robaxin TAB] 750 mg PO Q8H PRN #14 tablet 07/14/19 Unknown Rx Cyclobenzaprine [Flexeril] 10 mg PO TID PRN #20 tablet 08/27/19 Unknown Rx Ibuprofen [Motrin] 800 mg PO TID #15 tablet 08/27/19 Unknown Rx oxyCODONE /ACETAMINOPHEN [Percocet 1 tab PO Q6HR PRN #10 tablet 08/27/19 Unknown Rx 5/325] Ondansetron [Zofran Odt] 4 mg PO Q6H PRN #10 tab.rapdis 09/15/19 Unknown Rx traMADol [Ultram 50 MG tab] 50 mg PO Q6HR PRN #10 tablet 09/15/19 Unknown Rx HYDROcodone/APAP 5-325 [[place] 1 each PO Q6HR PRN #14 tablet 09/17/19 Unknown Rx 5/325] Ondansetron [Zofran Odt] 4 mg PO Q8HR PRN #20 tab.rapdis 09/17/19 Unknown Rx ED Physical Exam - General Limitations: No Limitations - Other Other exam information: General: No acute distress Head: Atraumatic tearful due to pain Eyes: normal appearance ENT: Moist mucous membranes Neck: Normal appearance, no midline tenderness Chest: Clear to auscultation bilaterally, reproducible left-sided chest wall tenderness CV: Regular rate and rhythm Abdomen: Soft, normal bowel sounds, epigastric tenderness, nondistended, no rebound or guarding Back: Normal inspection Extremity: Normal inspection infection, full range of motion, no calf tenderness or leg edema Neuro: Alert O x 3, no facial asymmetry, speech clear, no gross motor sensory deficit Psych: Appropriate behavior Skin: No rash ED Course Vital Signs 09/17/19 09/17/19 09/17/19 15:42 16:30 16:41 Temperature 97.9 F Pulse Rate 79 71 Respiratory 16 19 24 Rate Blood Pressure Blood Pressure 138/90 [Left] O2 Sat by Pulse 97 98 100 Oximetry 09/17/19 09/17/19 09/17/19 16:45 17:01 19:05 Temperature Pulse Rate 71 72 Respiratory 16 28 H 18 Rate Blood Pressure 144/96 138/80 Blood Pressure [Left] O2 Sat by Pulse 98 97 Oximetry 09/17/19 20:20 Temperature Pulse Rate Respiratory 18 Rate Blood Pressure Blood Pressure [Left] O2 Sat by Pulse Oximetry TIKA score - Tika Score Age > 65: (0) No Aspirin use within the Past 7 Days: (1) Yes 3 or more CAD Risk Factors: (1) Yes 2 or more Angina events in past 24 hrs: (0) No Known CAD with more than 50% Stenosis: (1) Yes Elevated Cardiac Markers: (0) No ST Deviation Greater than 0.5mm: (0) No TIKA Score: 3 ED Medical Decision Making - Lab Data Result diagrams: 09/17/19 16:10 09/17/19 16:10 Lab Results 09/17/19 09/17/19 09/17/19 Range/Units 16:10 16:10 18:43 WBC 10.9 (4.5-11.0) K/mm3 RBC 4.49 (3.65-5.03) M/mm3 Hgb 14.9 H (10.1-14.3) gm/dl Hct 43.7 H (30.3-42.9) % MCV 97 (79-97) fl MCH 33 H (28-32) pg MCHC 34 (30-34) % RDW 12.6 L (13.2-15.2) % Plt Count 180 (140-440) K/mm3 Lymph % (Auto) 15.2 (13.4-35.0) % Gilliam % (Auto) 9.7 H (0.0-7.3) % Eos % (Auto) 1.0 (0.0-4.3) % Baso % (Auto) 0.7 (0.0-1.8) % Lymph # 1.6 (1.2-5.4) K/mm3 Gilliam # 1.1 H (0.0-0.8) K/mm3 Eos # 0.1 (0.0-0.4) K/mm3 Baso # 0.1 (0.0-0.1) K/mm3 Seg Neutrophils % 73.4 H (40.0-70.0) % Seg Neutrophils # 8.0 H (1.8-7.7) K/mm3 Sodium 133 L (137-145) mmol/L Potassium 3.8 (3.6-5.0) mmol/L Chloride 102.5 (98-107) mmol/L Carbon Dioxide 16 L (22-30) mmol/L Anion Gap 18 mmol/L BUN 16 (7-17) mg/dL Creatinine 0.8 (0.7-1.2) mg/dL Estimated GFR > 60 ml/min BUN/Creatinine Ratio 20 % Glucose 109 H (65-100) mg/dL Calcium 9.1 (8.4-10.2) mg/dL Total Bilirubin (0.1-1.2) mg/dL Direct Bilirubin (0-0.2) mg/dL Indirect Bilirubin mg/dL AST (5-40) units/L ALT (7-56) units/L Alkaline Phosphatase (35-129) units/L Troponin T < 0.010 < 0.010 (0.00-0.029) ng/mL Total Protein (6.3-8.2) g/dL Albumin (3.9-5) g/dL Albumin/Globulin Ratio % Lipase (13-60) units/L Urine Color (Yellow) Urine Turbidity (Clear) Urine pH (5.0-7.0) Ur Specific [place] (1.003-1.030) Urine Protein (Negative) mg/dL Urine Glucose (UA) (Negative) mg/dL Urine Ketones (Negative) mg/dL Urine Blood (Negative) Urine Nitrite (Negative) Urine Bilirubin (Negative) Urine Urobilinogen (<2.0) mg/dL Ur Leukocyte Esterase (Negative) Urine WBC (Auto) (0.0-6.0) /HPF Urine RBC (Auto) (0.0-6.0) /HPF U Epithel Cells (Auto) (0-13.0) /HPF Urine Bacteria (Auto) (Negative) /HPF Urine Mucus /HPF Urine HCG, Qual (Negative) 09/17/19 09/17/19 09/17/19 Range/Units 18:43 20:55 21:30 WBC (4.5-11.0) K/mm3 RBC (3.65-5.03) M/mm3 Hgb (10.1-14.3) gm/dl Hct (30.3-42.9) % MCV (79-97) fl MCH (28-32) pg MCHC (30-34) % RDW (13.2-15.2) % Plt Count (140-440) K/mm3 Lymph % (Auto) (13.4-35.0) % Gilliam % (Auto) (0.0-7.3) % Eos % (Auto) (0.0-4.3) % Baso % (Auto) (0.0-1.8) % Lymph # (1.2-5.4) K/mm3 Gilliam # (0.0-0.8) K/mm3 Eos # (0.0-0.4) K/mm3 Baso # (0.0-0.1) K/mm3 Seg Neutrophils % (40.0-70.0) % Seg Neutrophils # (1.8-7.7) K/mm3 Sodium (137-145) mmol/L Potassium (3.6-5.0) mmol/L Chloride (98-107) mmol/L Carbon Dioxide (22-30) mmol/L Anion Gap mmol/L BUN (7-17) mg/dL Creatinine (0.7-1.2) mg/dL Estimated GFR ml/min BUN/Creatinine Ratio % Glucose (65-100) mg/dL Calcium (8.4-10.2) mg/dL Total Bilirubin 0.60 (0.1-1.2) mg/dL Direct Bilirubin < 0.2 (0-0.2) mg/dL Indirect Bilirubin 0.4 mg/dL AST 17 (5-40) units/L ALT 11 (7-56) units/L Alkaline Phosphatase 74 (35-129) units/L Troponin T < 0.010 (0.00-0.029) ng/mL Total Protein 7.7 (6.3-8.2) g/dL Albumin 3.9 (3.9-5) g/dL Albumin/Globulin Ratio 1.0 % Lipase 12 L (13-60) units/L Urine Color Yellow (Yellow) Urine Turbidity Cloudy (Clear) Urine pH 5.0 (5.0-7.0) Ur Specific [place] 1.028 (1.003-1.030) Urine Protein 30 mg/dl (Negative) mg/dL Urine Glucose (UA) Neg (Negative) mg/dL Urine Ketones 20 (Negative) mg/dL Urine Blood Sm (Negative) Urine Nitrite Neg (Negative) Urine Bilirubin Neg (Negative) Urine Urobilinogen 2.0 (<2.0) mg/dL Ur Leukocyte Esterase Tr (Negative) Urine WBC (Auto) 4.0 (0.0-6.0) /HPF Urine RBC (Auto) 10.0 (0.0-6.0) /HPF U Epithel Cells (Auto) 16.0 H (0-13.0) /HPF Urine Bacteria (Auto) 2+ (Negative) /HPF Urine Mucus 3+ /HPF Urine HCG, Qual Negative (Negative) - EKG Data -: EKG Interpreted by De EKG shows normal: sinus rhythm, ST-T waves (ant lat t wave inv) Rate: normal (71) - EKG Data When compared to previous EKG there are: no significant change 09/17/19 22:14 Repeat EKG unchanged and similar to previous - Radiology Data Radiology results: report reviewed CHEST 1 VIEW 4:08 PM INDICATION / CLINICAL INFORMATION: Chest pain, shortness breath and nausea. COMPARISON: 09/15/2019. FINDINGS: SUPPORT DEVICES: The position of the dual chamber left subclavian ICD has not changed. HEART / MEDIASTINUM: The heart size is the upper limits of normal. The aorta is normal in caliber. Pulmonary vasculature is normal. LUNGS / PLEURA: No significant pulmonary or pleural abnormality. No pneumothorax. ADDITIONAL FINDINGS: No significant additional findings. IMPRESSION: No acute abnormality or significant change. - Medical Decision Making Symptoms improved with Zofran and Dilaudid. Patient received normal saline 500 mL for some mild hydration given a history of CHF. Presents reproducible chest wall tenderness or started after vomiting episodes. The patient was in the department long enough to have serial EKGs and 3 troponins which remained negative. EKG was unchanged in the ED and unchanged from prior record. Patient has a negative stress test from February on record. Patient be discharged home with muscular skeletal pain and treated symptomatically. Patient informed that marijuana can cause hyperemesis and [email or web address]. - Differential Diagnosis costochondritis, GERD, pancreatitis, hyperemesis, LA Critical Care Time: No Critical care attestation.: If time is entered above; I have spent that time in minutes in the direct care of this critically ill patient, excluding procedure time. ED Disposition Clinical Impression: Chest wall pain, Nausea and vomiting, Marijuana use Disposition: - TO HOME OR SELFCARE Is pt being admited?: No Does the pt Need Aspirin: No Condition: Stable Instructions: Chest Pain (ED), Acute Nausea and Vomiting (ED), Medicinal Use of Cannabis (ED) Additional Instructions: Take the medication as prescribed. Follow-up with your doctor or doctor/clinic provided. Return if symptoms worsen as indicated by your discharge instructions. Prescriptions: HYDROcodone/APAP 5-325 [[place] 5/325] 1 each PO Q6HR PRN #14 tablet PRN Reason: Pain Ondansetron [Zofran Odt] 4 mg PO Q8HR PRN #20 tab.rapdis PRN Reason: Nausea And Vomiting Referrals: PRIMARY CARE,MD [Primary Care Provider] - 3-5 Days [facility] [Provider Group] - 3-5 Days Time of Disposition: 22:37
[2019-09-17 21:22] LABS: Bacteria,Urine 2+ /HPF (Negative); Bilirubin,Urine NEG (Negative); Blood,Urine SM (Negative); Color,Urine Yellow (Yellow); Mucus,Urine 3+ /HPF
[2019-09-17 21:23] LABS: HCG Qualitative,Urine Negative (Negative)
[2019-09-17 23:31] VITALS: BP 118/80
== END 2019-09-17 23:15 | disposition home or self-care (01) ==
LOC: ED 15:13
DX: R07.89 Other chest pain (principal); R11.2 Nausea with vomiting, unspecified; F12.10 Cannabis abuse, uncomplicated; I11.0 Hypertensive heart disease with heart failure; I50.9 Heart failure, unspecified; I25.2 Old myocardial infarction; E78.00 Pure hypercholesterolemia, unspecified; Z95.5 Presence of coronary angioplasty implant and graft; Z98.890 Other specified postprocedural states; Z79.899 Other long term (current) drug therapy
CPT/HCPCS: 36415; 71045; 80048; 80076; 81001; 81025; 83690; 84484; 85025; 93005; 93010; 96361; 96374; 96375; 96376; 99284; J1170; J2405; J7040

== ENCOUNTER 2019-09-29 04:04 | Observation (INO) | payer MEDICAID ==
--- NOTE | 2019-09-29 05:06 | XRay Report ---
CHEST 1 VIEW INDICATION / CLINICAL INFORMATION: Chest Pain. COMPARISON: 09/17/2019 FINDINGS: SUPPORT DEVICES: Pacemaker device is stable in position. HEART / MEDIASTINUM: Upper limits of normal for size. LUNGS / PLEURA: No significant pulmonary or pleural abnormality. No pneumothorax. ADDITIONAL FINDINGS: No significant additional findings. IMPRESSION: 1. No acute findings. No interval change. Signer Name: Virgie Rasmussen MD Signed: 09/29/2019 5:01 AM Workstation Name: [employer]
[2019-09-29] MEDS ORDERED: MORPHINE 4 MG/1 ML INJ IV ONE (05:16)
[2019-09-29] MEDS ORDERED: ONDANSETRON 4 MG/2 ML INJ IV ONE ×2 (05:16→05:45)
[2019-09-29 05:40] LABS: Basophils % (Auto) 0.3 % (0.0-1.8); Eosinophils % (Auto) 0.1 % (0.0-4.3); Hematocrit 43.7 % (30.3-42.9); Lymphocytes # (Auto) 1.6 K/mm3 (1.2-5.4); Lymphocytes % (Auto) 11.2 % (13.4-35.0); Mean Corpuscular HGB Conc 34 % (30-34); Mean Corpuscular Volume 96 fl (79-97); Monocytes # (Auto) 0.8 K/mm3 (0.0-0.8); Monocytes % (Auto) 5.5 % (0.0-7.3); Platelet Count 268 K/mm3 (140-440); Red Blood Count 4.53 M/mm3 (3.65-5.03); Red Cell Distribution Width 12.6 % (13.2-15.2)
[2019-09-29 06:01] LABS: Alanine Aminotransferase 29 units/L (7-56); Albumin 3.5 g/dL (3.9-5); BUN/Creatinine Ratio 25; Blood Urea Nitrogen 20 mg/dL (7-17); Calcium 9.5 mg/dL (8.4-10.2); Hemolysis Index 31
[2019-09-29] MEDS ORDERED: HYDROmorphone 1 MG/1 ML INJ IV ONE ×2 (06:28→11:17)
[2019-09-29] MEDS ORDERED: PROMETHAZINE 25 MG RECT SUPP PR ONE ×2 (06:28→11:17)
[2019-09-29] MEDS ORDERED: SODIUM CHLORIDE 0.9% 1000 ML 1,000 ML IV ONE (06:29)
--- NOTE | 2019-09-29 06:30 | Emergency Department Report ---
ED Abdominal Pain HPI - General Chief Complaint: Chest Pain Stated Complaint: CHEST PAIN Time Seen by Provider: 09/29/19 06:27 Source: EMS Mode of arrival: Stretcher Limitations: No Limitations - History of Present Illness Initial Comments: Patient is a 49-year-old female that presents emergency room with complaints of chest pain and abdominal pain. Patient states her abdominal pain started at 10 PM with repeated bouts of nausea and vomiting. Patient states she started dry heaving. Patient states she has not been able to hold any water down. Patient states approximately 2 hours after her nausea and vomiting her chest pain started. Patient states the chest pain is in the left upper chest and is worse with movement, vomiting and palpation. Patient states her pain is better with rest and not vomiting. MD Complaint: abdominal pain -: Sudden Location: diffuse Radiation: none Migration to: no migration Severity: severe Severity scale (0 -10): 10 Quality: stabbing Consistency: constant Improves With: rest Worsens With: vomiting, movement Associated Symptoms: nausea, vomiting. denies: diarrhea, fever, chills, constipation, dysuria, hematemesis, melena, hematuria, syncope - Related Data LMP (females 10-50): last week Home Medications Medication Instructions Recorded Confirmed Last Taken Clopidogrel Bisulfate [Plavix] 75 mg PO DAILY 02/23/14 02/23/19 07/25/15 75 MG Carvedilol [Coreg] 25 mg PO BID 02/23/19 02/23/19 Unknown Furosemide [Lasix TAB] 40 mg PO QDAY 02/23/19 02/23/19 Unknown ISOSORBIDE MONOnitrate [Imdur ER] 120 mg PO QAM 02/23/19 02/23/19 Unknown Nitroglycerin 0.3 mg SL PRN PRN 02/23/19 02/23/19 Unknown Potassium Chloride 20 meq PO QID 02/23/19 02/23/19 Unknown Spironolactone [Aldactone] 25 mg PO BID 02/23/19 02/23/19 Unknown metOLazone [Metolazone] 2.5 mg PO QDAY 02/23/19 02/23/19 Unknown Previous Rx's Medication Instructions Recorded Last Taken Type Folic Acid [Folvite] 1 mg PO QDAY #30 tablet 07/27/15 Unknown Rx Lisinopril [Zestril TAB] 5 mg PO QDAY #30 tablet 02/24/19 Unknown Rx Ketorolac [Toradol] 10 mg PO Q6H PRN #15 tablet 07/14/19 Unknown Rx methOCARBAMOL [Robaxin TAB] 750 mg PO Q8H PRN #14 tablet 07/14/19 Unknown Rx Cyclobenzaprine [Flexeril] 10 mg PO TID PRN #20 tablet 08/27/19 Unknown Rx Ibuprofen [Motrin] 800 mg PO TID #15 tablet 08/27/19 Unknown Rx oxyCODONE /ACETAMINOPHEN [Percocet 1 tab PO Q6HR PRN #10 tablet 08/27/19 Unknown Rx 5/325] Ondansetron [Zofran Odt] 4 mg PO Q6H PRN #10 tab.rapdis 09/15/19 Unknown Rx traMADoL [Ultram 50 MG tab] 50 mg PO Q6HR PRN #10 tablet 09/15/19 Unknown Rx HYDROcodone/APAP 5-325 [[place] 1 each PO Q6HR PRN #14 tablet 09/17/19 Unknown Rx 5/325] Ondansetron [Zofran Odt] 4 mg PO Q8HR PRN #20 tab.rapdis 09/17/19 Unknown Rx Allergies Allergy/AdvReac Type Severity Reaction Status Date / Time No Known Allergies Allergy Verified 07/06/14 09:55 ED Review of Systems ROS: Stated complaint: CHEST PAIN Other details as noted in HPI Constitutional: denies: chills, fever Eyes: denies: eye pain, eye discharge, vision change ENT: denies: ear pain, throat pain Respiratory: denies: cough, shortness of breath, wheezing Cardiovascular: chest pain. denies: palpitations Endocrine: no symptoms reported Gastrointestinal: abdominal pain, nausea, vomiting. denies: diarrhea Genitourinary: denies: urgency, dysuria, discharge Musculoskeletal: denies: back pain, joint swelling, arthralgia Skin: denies: rash, lesions Neurological: denies: headache, weakness, paresthesias Psychiatric: denies: anxiety, depression Hematological/Lymphatic: denies: easy bleeding, easy bruising ED Past Medical Hx - Past Medical History Previous Medical History?: Yes Hx Hypertension: Yes Hx CVA: Yes (2015, no deficits) Hx Heart Attack/AMI: Yes Hx Congestive Heart Failure: Yes Hx Renal Disease: No Hx Asthma: No Hx COPD: No Additional medical history: CVD. High cholestrol - Surgical History Past Surgical History?: Yes Hx Coronary Stent: Yes (x1) Hx Pacemaker: Yes Hx Internal Defibrillator: Yes Additional Surgical History: stent x 1, placed in 2008. Defribrilator - Family History Family history: no significant - Social History Smoking Status: Never Smoker Substance Use Type: Marijuana - Medications Home Medications: Home Medications Medication Instructions Recorded Confirmed Last Taken Type Clopidogrel Bisulfate [Plavix] 75 mg PO DAILY 02/23/14 02/23/19 07/25/15 History 75 MG Folic Acid [Folvite] 1 mg PO QDAY #30 tablet 07/27/15 02/23/19 Unknown Rx Carvedilol [Coreg] 25 mg PO BID 02/23/19 02/23/19 Unknown History Furosemide [Lasix TAB] 40 mg PO QDAY 02/23/19 02/23/19 Unknown History ISOSORBIDE MONOnitrate [Imdur ER] 120 mg PO QAM 02/23/19 02/23/19 Unknown Hist ory Nitroglycerin 0.3 mg SL PRN PRN 02/23/19 02/23/19 Unknown History Potassium Chloride 20 meq PO QID 02/23/19 02/23/19 Unknown History Spironolactone [Aldactone] 25 mg PO BID 02/23/19 02/23/19 Unknown History metOLazone [Metolazone] 2.5 mg PO QDAY 02/23/19 02/23/19 Unknown History Lisinopril [Zestril TAB] 5 mg PO QDAY #30 tablet 02/24/19 Unknown Rx Ketorolac [Toradol] 10 mg PO Q6H PRN #15 tablet 07/14/19 Unknown Rx methOCARBAMOL [Robaxin TAB] 750 mg PO Q8H PRN #14 tablet 07/14/19 Unknown Rx Cyclobenzaprine [Flexeril] 10 mg PO TID PRN #20 tablet 08/27/19 Unknown Rx Ibuprofen [Motrin] 800 mg PO TID #15 tablet 08/27/19 Unknown Rx oxyCODONE /ACETAMINOPHEN [Percocet 1 tab PO Q6HR PRN #10 tablet 08/27/19 Unknown Rx 5/325] Ondansetron [Zofran Odt] 4 mg PO Q6H PRN #10 tab.rapdis 09/15/19 Unknown Rx traMADoL [Ultram 50 MG tab] 50 mg PO Q6HR PRN #10 tablet 09/15/19 Unknown Rx HYDROcodone/APAP 5-325 [[place] 1 each PO Q6HR PRN #14 tablet 09/17/19 Unknown Rx 5/325] Ondansetron [Zofran Odt] 4 mg PO Q8HR PRN #20 tab.rapdis 09/17/19 Unknown Rx ED Physical Exam - General Limitations: No Limitations General appearance: alert, in no apparent distress - Head Head exam: Present: atraumatic, normocephalic - Eye Eye exam: Present: normal appearance, PERRL Pupils: Present: normal accommodation - ENT ENT exam: Present: mucous membranes dry - Neck Neck exam: Present: normal inspection - Respiratory Respiratory exam: Present: normal lung sounds bilaterally, chest wall tenderness (produces symptoms). Absent: respiratory distress, wheezes, rales - Cardiovascular Cardiovascular Exam: Present: regular rate, normal rhythm. Absent: systolic murmur, diastolic murmur, rubs, gallop - GI/Abdominal GI/Abdominal exam: Present: soft, tenderness (generalized tenderness to palpation), normal bowel sounds. Absent: distended, guarding, rebound - Rectal Rectal exam: Present: deferred - Extremities Exam Extremities exam: Present: normal inspection - Back Exam Back exam: Present: normal inspection - Neurological Exam Neurological exam: Present: alert, oriented X3 - Psychiatric Psychiatric exam: Present: normal affect, normal mood - Skin Skin exam: Present: warm, dry, intact, normal color. Absent: rash ED Course Vital Signs 09/29/19 09/29/19 09/29/19 04:11 04:13 04:16 Temperature 97.4 F L Pulse Rate 76 85 79 Respiratory 28 H 21 19 Rate Blood Pressure 143/93 143/93 O2 Sat by Pulse 100 100 100 Oximetry 09/29/19 09/29/19 09/29/19 04:30 04:46 05:00 Temperature Pulse Rate 76 79 76 Respiratory 17 30 H 18 Rate Blood Pressure 143/93 143/93 143/93 O2 Sat by Pulse 99 100 100 Oximetry 09/29/19 09/29/19 09/29/19 05:16 05:30 05:46 Temperature Pulse Rate 76 74 67 Respiratory 20 23 18 Rate Blood Pressure 143/93 143/93 143/93 O2 Sat by Pulse 100 83 L 100 Oximetry 09/29/19 09/29/19 09/29/19 06:00 06:16 06:30 Temperature Pulse Rate 68 78 77 Respiratory 17 18 19 Rate Blood Pressure 143/93 134/86 134/86 O2 Sat by Pulse 100 100 99 Oximetry 09/29/19 09/29/19 09/29/19 07:13 07:15 07:31 Temperature Pulse Rate 84 71 63 Respiratory 23 18 14 Rate Blood Pressure 134/86 134/86 134/86 O2 Sat by Pulse 99 98 91 Oximetry 09/29/19 09/29/19 09/29/19 07:45 08:01 08:06 Temperature Pulse Rate 81 97 H Respiratory 19 21 21 Rate Blood Pressure 134/86 134/86 O2 Sat by Pulse 94 95 100 Oximetry 09/29/19 09/29/19 09/29/19 08:15 08:31 08:53 Temperature Pulse Rate 96 H 103 H 102 H Respiratory 19 14 18 Rate Blood Pressure 134/86 134/86 134/86 O2 Sat by Pulse 96 99 97 Oximetry 09/29/19 09/29/19 09/29/19 09:01 09:15 09:31 Temperature Pulse Rate 95 H 92 H 96 H Respiratory 18 18 18 Rate Blood Pressure 134/86 134/86 134/86 O2 Sat by Pulse 97 96 97 Oximetry 09/29/19 09/29/19 09/29/19 09:45 10:01 10:15 Temperature Pulse Rate 94 H 98 H 103 H Respiratory 17 18 15 Rate Blood Pressure 134/86 107/64 107/64 O2 Sat by Pulse 96 97 98 Oximetry 09/29/19 09/29/19 09/29/19 10:31 10:45 11:01 Temperature Pulse Rate 93 H 99 H 93 H Respiratory 18 21 18 Rate Blood Pressure 107/64 107/64 107/64 O2 Sat by Pulse 97 97 94 Oximetry 09/29/19 11:15 Temperature Pulse Rate 104 H Respiratory 20 Rate Blood Pressure 107/64 O2 Sat by Pulse 98 Oximetry - Reevaluation(s) Reevaluation #1: Complaining of severe abdominal pain and nausea. Patient will be given another dose of Dilaudid and Phenergan. 09/29/19 11:00 Reevaluation #2: I discussed all results with patient. Patient has had multiple doses of pain medication and nausea medication with no relief. Patient will be admitted to the hospitalist service. Patient agrees with plan of care and admission. 09/29/19 11:55 - Consultations Consultation #1: Radiologist called and states that the patient did not have any contrast in her abdomen for her CT and therefore the IV must infiltrated. A repeat CT with IV contrast be done. 09/29/19 07:30 Consultation #2: Hospitalist consult for admission. Hospitalist admit patient. b[facility]idge orders place. 09/29/19 11:58 ED Medical Decision Making - Lab Data Result diagrams: 09/29/19 04:48 09/29/19 04:48 - EKG Data -: EKG Interpreted by Me EKG shows normal: sinus rhythm, axis, intervals, QRS complexes, ST-T waves Rate: normal - Radiology Data Radiology results: report reviewed, image reviewed interpreted by me: no Acute findings on chest x-ray. No acute findings on CT abdomen. - Medical Decision Making Patient is a 49-year-old female that presents emergency room for complaints of chest pain, abdominal pain and intractable nausea vomiting. Patient's chest pain started after her abdominal pain. Patient's initial cardiac workup negative. Patient's abdominal workup negative. Patient unable to tolerate by mouth challenge. Patient patient admitted to the hospital service. Patient's initial CT done which showed no acute findings however no contrast is noted in the abdominal cavity, so was inferred that the patient's IV infiltrated. CT was then repeated with IV contrast through a patent IV. Both ct's showed no acute process. Patient's clinical findings consistent with gastroenteritis and intractable nausea vomiting. Patient required multiple doses of pain medication for her pain. - Differential Diagnosis chest pain. ACS. abd pain. n/v Critical Care Time: Yes Critical care time in (mins) excluding proc time.: 35 Critical care attestation.: If time is entered above; I have spent that time in minutes in the direct care of this critically ill patient, excluding procedure time. Critical Care Time: 35 minutes ED Disposition Clinical Impression: Intractable nausea and vomiting, Chest wall pain, Dehydration, Gastroenteritis Chest pain Qualifiers: Chest pain type: unspecified Qualified Code(s): R07.9 - Chest pain, unspecified Abdominal pain Qualifiers: Abdominal location: generalized Qualified Code(s): R10.84 - Generalized abdominal pain Vomiting Qualifiers: Vomiting type: unspecified Vomiting Intractability: intractable Nausea presence: with nausea Qualified Code(s): R11.2 - Nausea with vomiting, unspecified Elevated WBC count Qualifiers: Leukocytosis type: unspecified Qualified Code(s): D72.829 - Elevated white blood cell count, unspecified Disposition: OP ADMIT IP TO THIS HOSP Is pt being admited?: Yes Does the pt Need Aspirin: No Condition: Critical Time of Disposition: 11:59
[2019-09-29] MEDS ORDERED: SODIUM CHLORIDE 0.9% 500 ML 500 ML IV ONE (06:58)
--- NOTE | 2019-09-29 07:26 | Cat Scan Report ---
CT abdomen pelvis with con INDICATION / CLINICAL INFORMATION: abd pain. n/v. TECHNIQUE: Axial CT imaging of abdomen and pelvis was obtained with IV contrast. Coronal and sagittal reformatte d imaging obtained and reviewed. All CT scans at this location are performed using CT dose reduction for ALARA by means of automated exposure control. COMPARISON: Previous CT abdomen/pelvis, 02/23/2019 FINDINGS: CT abdomen with contrast demonstrates grossly normal appearance of the liver, spleen, pancreas, kidne ys, and adrenal glands. No obvious gallbladder pathology or biliary dilatation identified. No intrare nal calculi or hydronephrosis. Small/moderate size hiatal hernia CT pelvis with contrast demonstrates normal appearance of the appendix. No pelvic mass, free fluid, o r focal inflammatory change noted. There is a moderate amount retained stool within the colon and rec trey. GI tract is otherwise grossly unremarkable. No acute pulmonary or pleural disease within the visualized lung bases. No significant skeletal abnormality.. Please note that the CT scan was ordered with IV contrast. However there is no contrast seen within t he abdomen or pelvis. The blood bank laboratory technologist was notified. He confirmed that IV contrast was given. Ther e is significant probability that the contrast infiltrated in the patient's arm. Dr. Gardiner was not ified of this finding at 0620 hours SHIFT MECHANIC IMPRESSION: 1. No acute finding within the abdomen or pelvis. 2. Moderate amount retained stool within the colon and rectum. 3. Small to moderate size hiatal hernia. 4. No IV contrast is identified within the abdomen or pelvis. Therefore there is strong suspicion tai t IV contrast infiltrated in the patient's arm. Signer Name: Virgie Rasmussen MD Signed: 09/29/2019 7:21 AM Workstation Name: [email or web address]
--- NOTE | 2019-09-29 12:04 | History and Physical Report ---
History of Present Illness Chief complaint: My chest hurts History of present illness: 49 YO Female with HTN, Systolic CHF(EF 15%), CVA, ND, CAD S/P Stent Placement, Obesity presents to ED for evaluation. Pt states that she has experienced pain in her chest and abdomen. Pt states that the pain awoke her from sleep overnight around 2000 hrs, and has persisted since its onset. Pt states that pain is 10/10, constant, severe, stabbing in nature, nonradiating, localized to the left chest, substernal, worsened with exertion, relieved with rest, associated with nausea and multiple episodes of vomiting. Pt Dypsnea with exertion, decreased exercise tolerance, and also acknowledges feeling "stressed out" because her hu millie experienced multiple seizures today and was transported to [facility]. Pt states that she notified EMS and upon arrival the patient was found to be in distress and was transported to [facility]. Pt seen and evaluated in ED and found to have symptoms consistent with CHF Decompensation, Angina, as well as SIRS. Pt admitted to telemetry. Cardiology team consulted in ED. Pt denies fever, chills, palpitations, syncope, prolonged travel/immobility, individual/family history of DVT/PE/Bleeding/Blood Clotting Disorders. Prior admission on 02/23/19 reviewed. All listed medication reconciled at time of admission. Past History Past Medical History: other (see hpi) Past Surgical History: Other (Cardiac Stent/ICD/Pacemaker) Social history: , lives with family. denies: smoking, alcohol abuse, prescription drug abuse Family history: hypertension Medications and Allergies Allergies Allergy/AdvReac Type Severity Reaction Status Date / Time No Known Allergies Allergy Verified 07/06/14 09:55 Home Medications Medication Instructions Recorded Confirmed Last Taken Type Clopidogrel Bisulfate [Plavix] 75 mg PO DAILY 02/23/14 02/23/19 07/25/15 History 75 MG Folic Acid [Folvite] 1 mg PO QDAY #30 tablet 07/27/15 02/23/19 Unknown Rx Carvedilol [Coreg] 25 mg PO BID 02/23/19 02/23/19 Unknown History Furosemide [Lasix TAB] 40 mg PO QDAY 02/23/19 02/23/19 Unknown History ISOSORBIDE MONOnitrate [Imdur ER] 120 mg PO QAM 02/23/19 02/23/19 Unknown History Nitroglycerin 0.3 mg SL PRN PRN 02/23/19 02/23/19 Unknown History Potassium Chloride 20 meq PO QID 02/23/19 02/23/19 Unknown History Spironolactone [Aldactone] 25 mg PO BID 02/23/19 02/23/19 Unknown History metOLazone [Metolazone] 2.5 mg PO QDAY 02/23/19 02/23/19 Unknown History Lisinopril [Zestril TAB] 5 mg PO QDAY #30 tablet 02/24/19 Unknown Rx Ketorolac [Toradol] 10 mg PO Q6H PRN #15 tablet 07/14/19 Unknown Rx methOCARBAMOL [Robaxin TAB] 750 mg PO Q8H PRN #14 tablet 07/14/19 Unknown Rx Cyclobenzaprine [Flexeril] 10 mg PO TID PRN #20 tablet 08/27/19 Unknown Rx Ibuprofen [Motrin] 800 mg PO TID #15 tablet 08/27/19 Unknown Rx oxyCODONE /ACETAMINOPHEN [Percocet 1 tab PO Q6HR PRN #10 tablet 08/27/19 Unknown Rx 5/325] Ondansetron [Zofran Odt] 4 mg PO Q6H PRN #10 tab.rapdis 09/15/19 Unknown Rx traMADoL [Ultram 50 MG tab] 50 mg PO Q6HR PRN #10 tablet 09/15/19 Unknown Rx HYDROcodone/APAP 5-325 [[place] 1 each PO Q6HR PRN #14 tablet 09/17/19 Unknown Rx 5/325] Ondansetron [Zofran Odt] 4 mg PO Q8HR PRN #20 tab.rapdis 09/17/19 Unknown Rx Review of Systems Constitutional: no weight loss, no weight gain, no fever, no chills Ears, nose, mouth and throat: no ear pain, no ear discharge, no tinnitis, no decreased hearing, no nose pain Breasts: no change in shape, no swelling, no mass Cardiovascular: chest pain, shortness of breath, dyspnea on exertion, decreased exercise tolerance, no palpitations, no rapid/irregular heart beat, no lightheadedness Respiratory: no cough, no cough with sputum, no excessive sputum, no hemoptysis Gastrointestinal: abdominal pain, nausea, vomiting, no diarrhea, no constipation, no change in bowel habits, no BRBPR, no heartburn Genitourinary Female: no pelvic pain, no flank pain, no menorrhagia, no dysuria, no urinary frequency, no urgency Rectal: no pain, no incontinence, no bleeding Musculoskeletal: no neck stiffness, no neck pain, no shooting arm pain, no arm numbness/tingling, no low back pain, no shooting leg pain Integumentary: no rash, no pruritis, no redness, no sores, no wounds, no jaundice, no boils Neurological: no transient paralysis, no paralysis, no weakness, no parathesias, no numbness, no tingling, no seizures Psychiatric: no memory loss, no change in sleep habits, no sleep disturbances, no insomnia, no hypersomnia, no change in appetite, no change in libido Endocrine: no cold intolerance, no heat intolerance, no polyphagia, no excessive thirst, no polydipsia, no polyuria Hematologic/Lymphatic: no easy bruising, no easy bleeding, no lymphadenopathy, no lymphedema Allergic/Immunologic: no urticaria, no allergic rhinitis, no wheezing, no persistent infections, no angioedema Exam - Constitutional Vitals: Temp Pulse Resp BP Pulse Ox 97.4 F L 104 H 20 107/64 98 09/29/19 04:13 09/29/19 11:15 09/29/19 11:15 09/29/19 11:15 09/29/19 11:15 General appearance: Present: mild distress, obese - EENT Eyes: Present: PERRL ENT: hearing intact, clear oral mucosa - Neck Neck: Present: supple, normal ROM - Respiratory Respiratory effort: normal Respiratory: bilateral: CTA - Cardiovascular Heart Sounds: Present: S1 & S2. Absent: rub, click - Extremities Extremities: pulses symmetrical, No edema Peripheral Pulses: within normal limits - Abdominal General gastrointestinal: Present: soft, non-tender, non-distended, normal bowel sounds Female genitourinary: Present: normal - Integumentary Integumentary: Present: clear, warm, dry - Musculoskeletal Musculoskeletal: gait normal, strength equal bilaterally - Psychiatric Psychiatric: appropriate mood/affect, intact judgment & insight - Neurologic Neurologic: CNII-XII intact, moves all extremities Results - Labs CBC & Chem 7: 09/29/19 04:48 09/29/19 04:48 Labs: Abnormal lab results 09/29/19 09/29/19 09/29/19 Range/Units 04:48 04:48 07:24 WBC 14.2 H (4.5-11.0) K/mm3 Hgb 15.0 H (10.1-14.3) gm/dl Hct 43.7 H (30.3-42.9) % MCH 33 H (28-32) pg RDW 12.6 L (13.2-15.2) % Lymph % (Auto) 11.2 L (13.4-35.0) % Seg Neutrophils % 82.9 H (40.0-70.0) % Seg Neutrophils # 11.8 H (1.8-7.7) K/mm3 Carbon Dioxide 18 L (22-30) mmol/L BUN 20 H (7-17) mg/dL Glucose 133 H (65-100) mg/dL Albumin 3.5 L (3.9-5) g/dL Lipase 11 L (13-60) units/L Assessment and Plan - Patient Problems (1) CHF (congestive heart failure) Current Visit: Yes Status: Acute Qualifiers: Heart failure type: combined systolic and diastolic Heart failure chronicity: acute on chronic Qualified Code(s): I50.43 - Acute on chronic com bined systolic (congestive) and diastolic (congestive) heart failure Plan to address problem: Admit to telemetry, strict I/O, daily weight, BNP, thyroid panel, magnesium l evel, cardiology consulted in ED, Echo, blood pressure control, supplemental oxygen. (2) SIRS (systemic inflammatory response syndrome) Current Visit: Yes Status: Acute Plan to address problem: CBC, CMP, urinalysis, chest x ray, empiric antibiotic therapy (3) Angina at rest Current Visit: Yes Status: Acute Plan to address problem: CArdiology consulted in ED, serial cardiac enzymes, ekg, telemetry, further testing as per cardiology team. (4) HTN (hypertension) Current Visit: Yes Status: Acute Qualifiers: Hypertension type: essential hypertension Qualified Code(s): I10 - Esse ntial (primary) hypertension Plan to address problem: Monitor bp q shift, continue medical management. (5) CAD (coronary artery disease) Current Visit: Yes Status: Acute Qualifiers: Associated angina: with stable angina Plan to address problem: Lipid panel, risk factor reduction, low fat/low cholesterol diet. (6) DVT prophylaxis Current Visit: Yes Status: Acute Plan to address problem: SCD to BLE while in bed, prophylactic lovenox
[2019-09-29 12:52] LABS: Free T4 (Free Thyroxine) 1.91 ng/dL (0.76-1.46)
[2019-09-29] MEDS ORDERED: NITROGLYCERIN 0.4 MG TAB SUBL SL PRN (13:07)
[2019-09-29] MEDS ORDERED: cefTRIAXone/NS 1 GM/50 ML 1 GM/50 ML BAG IV SCH (13:30)
[2019-09-29 14:34] LABS: Free T4 (Free Thyroxine) 1.59 ng/dL (0.76-1.46)
--- NOTE | 2019-09-29 14:48 | Consultation ---
History of Present Illness Consult date: 09/29/19 Requesting physician: RHIANNA DICKERSON Consult reason: congestive heart failure History of present illness: The pt is a 49 YO female with a past medical history of HFrEF, ICMP, AICD in situ, CAD s/p PCI, HTN, HLP, obesity. She is followed in our office by Dr. SRINI Teixeira. She presented with c/o intractable nausea and vomiting which began yesterday evening around 10PM. She ate a salad for dinner, no changes in diet recently. After she began vomiting, she noted the onset of generalized abdominal pain and chest pain. She describes her chest pain as a constant left-sided aching which has since subsided now that her vomiting has improved. Pt denies any SOB, palpitations, diaphoresis or syncope. Abdomen/pelvis CT with no acute findings, small to mod size hiatal hernia. Cardiology has been consulted for HF. LHC 02/2014 showed patent stent in prox LAD, catheter-induced spasm in the prox LAD resolved with intracoronary nitro, EF 15-20%. Echo done 03/2018 showed EF 25-30%, anterior wall, inferior wall and apex severely hypokinetic, impaired relaxation, aortic root mildly dilated. Past History Past Medical History: other (see hpi) Past Surgical History: Other (Cardiac Stent/ICD/Pacemaker) Social history: , lives with family. denies: smoking, alcohol abuse, prescription drug abuse Family history: hypertension Medications and Allergies Allergies Allergy/AdvReac Type Severity Reaction Status Date / Time No Known Allergies Allergy Verified 07/06/14 09:55 Home Medications Medication Instructions Recorded Confirmed Last Taken Type Clopidogrel Bisulfate [Plavix] 75 mg PO DAILY 02/23/14 02/23/19 07/25/15 History 75 MG Folic Acid [Folvite] 1 mg PO QDAY #30 tablet 07/27/15 02/23/19 Unknown Rx Carvedilol [Coreg] 25 mg PO BID 02/23/19 02/23/19 Unknown History Furosemide [Lasix TAB] 40 mg PO QDAY 02/23/19 02/23/19 Unknown History ISOSORBIDE MONOnitrate [Imdur ER] 120 mg PO QAM 02/23/19 02/23/19 Unknown History Nitroglycerin 0.3 mg SL PRN PRN 02/23/19 02/23/19 Unknown History Potassium Chloride 20 meq PO QID 02/23/19 02/23/19 Unknown History Spironolactone [Aldactone] 25 mg PO BID 02/23/19 02/23/19 Unknown History metOLazone [Metolazone] 2.5 mg PO QDAY 02/23/19 02/23/19 Unknown History Lisinopril [Zestril TAB] 5 mg PO QDAY #30 tablet 02/24/19 Unknown Rx Ketorolac [Toradol] 10 mg PO Q6H PRN #15 tablet 07/14/19 Unknown Rx methOCARBAMOL [Robaxin TAB] 750 mg PO Q8H PRN #14 tablet 07/14/19 Unknown Rx Cyclobenzaprine [Flexeril] 10 mg PO TID PRN #20 tablet 08/27/19 Unknown Rx Ibuprofen [Motrin] 800 mg PO TID #15 tablet 08/27/19 Unknown Rx oxyCODONE /ACETAMINOPHEN [Percocet 1 tab PO Q6HR PRN #10 tablet 08/27/19 Unknown Rx 5/325] Ondansetron [Zofran Odt] 4 mg PO Q6H PRN #10 tab.rapdis 09/15/19 Unknown Rx traMADoL [Ultram 50 MG tab] 50 mg PO Q6HR PRN #10 tablet 09/15/19 Unknown Rx HYDROcodone/APAP 5-325 [[place] 1 each PO Q6HR PRN #14 tablet 09/17/19 Unknown Rx 5/325] Ondansetron [Zofran Odt] 4 mg PO Q8HR PRN #20 tab.rapdis 09/17/19 Unknown Rx Active Meds: Active Medications Aspirin (Baby Aspirin) 81 mg PO QDAY RUBEN Enoxaparin Sodium (Enoxaparin) 40 mg SUB-Q QDAY@2200 RUBEN Ceftriaxone Sodium (Rocephin/Ns 1 Gm/50 Ml) 1 gm in 50 mls @ 100 mls/hr IV Q24H RUBEN; Protocol Nitroglycerin (Nitrostat) 0.4 mg SL Q5M PRN PRN Reason: Chest Pain Sodium Chloride (Sodium Chloride Flush Syringe 10 Ml) 10 ml IV PRN PRN PRN Reason: LINE FLUSH Physical Examination Vital Signs Pulse Resp Pulse Ox 76 28 H 100 09/29/19 04:11 09/29/19 04:11 09/29/19 04:11 Results 09/29/19 04:48 09/29/19 04:48 Cardiac Enzymes 09/29/19 Range/Units 04:48 AST 15 (5-40) units/L CBC 09/29/19 Range/Units 04:48 WBC 14.2 H (4.5-11.0) K/mm3 RBC 4.53 (3.65-5.03) M/mm3 Hgb 15.0 H (10.1-14.3) gm/dl Hct 43.7 H (30.3-42.9) % Plt Count 268 (140-440) K/mm3 Lymph # 1.6 (1.2-5.4) K/mm3 Davis # 0.8 (0.0-0.8) K/mm3 Eos # 0.0 (0.0-0.4) K/mm3 Baso # 0.0 (0.0-0.1) K/mm3 Comprehensive Metabolic Panel 09/29/19 Range/Units 04:48 Sodium 138 (137-145) mmol/L Potassium 3.8 (3.6-5.0) mmol/L Chloride 104.8 (98-107) mmol/L Carbon Dioxide 18 L (22-30) mmol/L BUN 20 H (7-17) mg/dL Creatinine 0.8 (0.7-1.2) mg/dL Glucose 133 H (65-100) mg/dL Calcium 9.5 (8.4-10.2) mg/dL AST 15 (5-40) units/L ALT 29 (7-56) units/L Alkaline Phosphatase 69 (35-129) units/L Total Protein 7.0 (6.3-8.2) g/dL Albumin 3.5 L (3.9-5) g/dL Assessment and Plan Pt presented with primary c/o nausea and vomiting. Abdomen/pelvis CT with no acute findings, small to mod size hiatal hernia. She also c/o chest pain which began after she had been vomiting. ECG with NAF, Fady negative for AMI. Cardiology has been consulted for HF. No current clincal evidence of acutely decompensated HF. Resume home cardiac regimen. F/u echo. Further recs per hospital course. The patient has been seen in conjunction with Dr. Sales who agrees with the assessment and plan of care. - Patient Problems (1) Nausea and vomiting Current Visit: Yes Status: Acute (2) Abdominal pain Current Visit: Yes Status: Acute Qualifiers: Abdominal location: generalized Qualified Code(s): R10.84 - Generalized abdominal pain (3) Chest pain Current Visit: Yes Status: Resolved Qualifiers: Chest pain type: unspecified Qualified Code(s): R07.9 - Chest pain, unspecified (4) CAD (coronary artery disease) Current Visit: Yes Status: Chronic Qualifiers: Associated angina: with stable angina (5) Stented coronary artery Current Visit: Yes Status: Chronic (6) Ischemic cardiomyopathy Current Visit: Yes Status: Chronic (7) AICD (automatic cardioverter/defibrillator) present Current Visit: Yes Status: Chronic (8) Obesity Current Visit: Yes Status: Chronic (9) Hiatal hernia Current Visit: Yes Status: Chronic
[2019-09-29 18:37] LABS: Bilirubin,Urine NEG (Negative); Blood,Urine NEG (Negative); Color,Urine Yellow (Yellow); Mucus,Urine 2+ /HPF; Protein,Urine <15 mg/dL mg/dL (Negative)
[2019-09-29] MEDS: carvediloL 25 MG TAB PO SCH (21:23)
[2019-09-29] MEDS: SPIRONOLACTONE 25 MG TAB PO SCH (21:23)
[2019-09-29] MEDS ORDERED: ENOXAPARIN 40 MG/0.4 ML INJ SUB-Q SCH (22:00)
[2019-09-30] MEDS ORDERED: FUROSEMIDE 40 MG TAB PO SCH (10:00)
[2019-09-30] MEDS ORDERED: ASPIRIN 81 MG TAB CHEW PO SCH (10:00)
[2019-09-30] MEDS ORDERED: CLOPIDOGREL 75 MG TAB PO SCH (10:00)
[2019-09-30] MEDS ORDERED: LISINOPRIL 5 MG TAB PO SCH (10:00)
[2019-09-30] MEDS ORDERED: metOLazone 2.5 MG TAB PO SCH (10:00)
--- NOTE | 2019-09-30 10:36 | Cat Scan Report ---
CT angio chest INDICATION / CLINICAL INFORMATION: chest pain. TECHNIQUE: Axial CT images were obtained after injection of Omnipaque 350, 100 cc IV injection. IV contrast usin g CTA protocol. 3 plane MIP / 3D reconstructions were produced. All CT scans at this location are per formed using CT dose reduction for ALARA by means of automated exposure control. COMPARISON: None available. FINDINGS: No lung mass, dominant infiltrate or pleural fluid. Mild scarring is seen at the right base medially and lingula. Negative for mediastinal mass or adenopathy. No aneurysm, dissection or pulmonary embolus. Imaging of the upper abdomen is unremarkable. IMPRESSION: Negative for pulmonary embolus or pneumonia. Signer Name: Jakob Carter MD Signed: 09/30/2019 10:32 AM Workstation Name: [id number]
[2019-09-30 11:02] LABS: Hematocrit 41.3 % (30.3-42.9); Hemoglobin 14.4 gm/dl (10.1-14.3); Mean Corpuscular HGB Conc 35 % (30-34); Mean Corpuscular Volume 98 fl (79-97); Platelet Count 235 K/mm3 (140-440); Red Blood Count 4.21 M/mm3 (3.65-5.03); Red Cell Distribution Width 12.8 % (13.2-15.2)
--- NOTE | 2019-09-30 11:09 | Vascular Lab Report ---
DUPLEX DOPPLER LOWER EXTREMITY VEINS, BILATERAL INDICATION: DVT. TECHNIQUE: Duplex doppler imaging was performed through the veins of both lower extremities using ve nous compression and other maneuvers. COMPARISON: No relevant prior imaging study available. FINDINGS: Right Common femoral vein: Negative. Right Superficial femoral vein: Negative. Right Popliteal vein: Negative. Right Calf veins: Negative. Left Common femoral vein: Negative. Left Superficial femoral vein: Negative. Left Popliteal vein: Negative. Left Calf veins: Negative. Additional findings: None.. IMPRESSION: No sonographic evidence for DVT in either lower extremity. Signer Name: Jake Palma Jr, MD Signed: 09/30/2019 11:05 AM Workstation Name: [id number]
--- NOTE | 2019-09-30 11:41 | Discharge Summary ---
Providers - Providers Date of Admission: 09/29/19 11:56 Attending physician: SHANTI SOUSA MD 09/29/19 Consult to Cardiac Rehabilitation [CONS] Routine Reason For Exam: Phase I 09/29/19 13:07 Consult to Cardiology [CONS] Routine Consulting Provider: JUNE BUENO Reason For Exam: CHF Primary care physician: [facility] Hospitalization Reason for admission: ABDOMINAL PAIN Condition: Stable Hospital course: 49 YO Female with HTN, Systolic CHF(EF 15%), CVA, OR, CAD S/P Stent Placement, Obesity presents to ED for evaluation. Pt states that she has experienced pain in her chest and abdomen. Pt states that the pain awoke her from sleep overnight around 2000 hrs, and has persisted since its onset. Pt states that pain is 10 /10, constant, severe, stabbing in nature, nonradiating, localized to the left chest, substernal, worsened with exertion, relieved with rest, associated with nausea and multiple episodes of vomiting. Pt Dypsnea with exertion, decreased exercise tolerance, and also acknowledges feeling "stressed out" because her experienced multiple seizures today and was transported to [facility]. Pt states that she notified EMS and upon arrival the patient was found to be in distress and was transported to [facility]. Pt seen and evaluated in ED and found to have symptoms consistent with CHF Decompensation, Angina, as well as SIRS. Pt admitted to telemetry. Cardiology team consulted in ED. Pt denies fever, chills, palpitations, syncope, prolonged travel/immobility, individual/family history of DVT/PE/Bleeding/Blood Clotting Disorders. Prior admission on 02/23/19 reviewed. All listed medication reconciled at time of admission. per patient recurrent bout with consitpation and leading to nausea and vomiting Now better ran out of anti-emeitics and also stool softners. Per med-rec, patient on multiple pain meds. percocet discontinued. Counselling provided. PER CARDIOLOGY EVAL Pt presented with primary c/o nausea and vomiting. Abdomen/pelvis CT with no acute findings, small to mod size hiatal hernia. She also c/o chest pain which began after she had been vomiting. Chest pain now fully resolved. ECG with NAF, Fady negative for AMI. Echo reviewed - EF 10-15%, impaired relaxation, pacemaker wire in RV, mild TR. Cardiology was consulted for HF. No current clinical evidence of acutely decompensated HF. Cont home cardiac regimen. Pt may discharge home from cardiology standpoint. Recommend pt follow up in our office with Dr. SRINI Teixeira within 1-2 weeks of discharge ([phone]). - Patient Problems (1) Nausea and vomiting Current Visit: Yes Status: Resolved (2) Abdominal pain SECONDARY TO CONSTIPATION Current Visit: Yes Status: Resolved Qualifiers: Abdominal location: generalized Qualified Code(s): R10.84 - Generalized abdominal pain (3) Chest pain Current Visit: Yes Status: Resolved Qualifiers: Chest pain type: unspecified Qualified Code(s): R07.9 - Chest pain, unspecified (4) CAD (coronary artery disease) Current Visit: Yes Status: Chronic Qualifiers: Associated angina: with stable angina (5) Stented coronary artery Current Visit: Yes Status: Chronic (6) Ischemic cardiomyopathy Current Visit: Yes Status: Chronic (7) AICD (automatic cardioverter/defibrillator) present Current Visit: Yes Status: Chronic (8) Obesity Current Visit: Yes Status: Chronic (9) Hiatal hernia Current Visit: Yes Status: Chronic Disposition: DC-01 TO HOME OR SELFCARE Time spent for discharge: 35 MINS Core Measure Documentation - Palliative Care Palliative Care/ Comfort Measures: Not Applicable - Core Measures Any of the following diagnoses?: none Exam - Physical Exam Narrative exam: VITAL SIGNS: Reviewed. GENERAL: The patient appears normally developed, mORBIDLY OBSES, Vital signs as documented. HEAD: No signs of head trauma. EYES: Pupils are equal. Extraocular motions intact. EARS: Hearing grossly intact. MOUTH: Oropharynx is normal. NECK: No adenopathy, no JVD. CHEST: Chest with clear breath sounds bilaterally. No wheezes, rales, or rhonchi. CARDIAC: Regular rate and rhythm. S1 and S2, without murmurs, gallops, or rubs. VASCULAR: No Edema. Peripheral pulses normal and equal in all extremities. ABDOMEN: Soft, non tender and non distended. No rebound or guarding, and no masses palpated. Bowel Sounds normal. MUSCULOSKELETAL: Good range of motion of all major joints. Extremities without clubbing, cyanosis or edema. NEUROLOGIC EXAM: Alert and oriented x 3 No focal sensory or strength deficits. Speech normal. Follows commands. PSYCHIATRIC: Mood normal. SKIN: detial exam as documented in skin assessment - Constitutional Vitals: Temp Pulse Resp BP Pulse Ox 97.6 F 82 18 129/92 93 09/30/19 08:01 09/30/19 08:47 09/30/19 08:01 09/30/19 08:01 09/30/19 08:01 Plan Activity: advance as tolerated, fall precautions Diet: low fat, low salt Special Instructions: record daily weights, record daily BP diary Follow up with: PRIMARY CARE, [Primary Care Provider] - 7 Days JOSE L TEIXEIRA MD [Staff Physician] - 7 Days Prescriptions: Ondansetron [Zofran ODT TAB] 4 mg PO Q6H PRN #30 tab.rapdis PRN Reason: Nausea
[2019-09-30 11:51] VITALS: BP 124/88
[2019-09-30] MEDS ORDERED: FLU VACC QUAD 2019-20 (3 YR UP)/PF 60 MCG/0.5 ML SYRINGE IM ONE (12:00)
--- NOTE | 2019-09-30 12:31 | Progress Note ---
Assessment and Plan Pt presented with primary c/o nausea and vomiting. Abdomen/pelvis CT with no acute findings, small to mod size hiatal hernia. She also c/o chest pain which began after she had been vomiting. Chest pain now fully resolved. ECG with NAF, Fady negative for AMI. Echo reviewed - EF 10-15%, impaired relaxation, pacemaker wire in RV, mild TR. Cardiology was consulted for HF. No current clinical evidence of acutely decompensated HF. Cont home cardiac regimen. Pt may discharge home from cardiology standpoint. Recommend pt follow up in our office with Dr. SRINI Teixeira within 1-2 weeks of discharge ([phone]). The patient has been seen in conjunction with Dr. Sales who agrees with the assessment and plan of care. - Patient Problems (1) Nausea and vomiting Current Visit: Yes Status: Resolved (2) Abdominal pain Current Visit: Yes Status: Resolved Qualifiers: Abdominal location: generalized Qualified Code(s): R10.84 - Generalized a bdominal pain (3) Chest pain Current Visit: Yes Status: Resolved Qualifiers: Chest pain type: unspecified Qualified Code(s): R07.9 - Chest pain, unspecified (4) CAD (coronary artery disease) Current Visit: Yes Status: Chronic Qualifiers: Associated angina: with stable angina (5) Stented coronary artery Current Visit: Yes Status: Chronic (6) Ischemic cardiomyopathy Current Visit: Yes Status: Chronic (7) AICD (automatic cardioverter/defibrillator) present Current Visit: Yes Status: Chronic (8) Obesity Current Visit: Yes Status: Chronic (9) Hiatal hernia Current Visit: Yes Status: Chronic Subjective Date of service: 09/30/19 Principal diagnosis: n/v, abd pain Interval history: pt resting in bed, states she is feeling better today. in SR on tele. Objective Last Vital Signs Temp 97.6 F 09/30/19 11:41 Pulse 101 H 09/30/19 11:41 Resp 18 09/30/19 11:41 BP 124/88 09/30/19 11:41 Pulse Ox 97 09/30/19 11:41 - Physical Examination General: No Apparent Distress HEENT: Positive: PERRL, Normocephaly, Mucus Membranes Moist Neck: Positive: neck supple, trachea midline Cardiac: Positive: Reg Rate and Rhythm, S1/S2 Lungs: Positive: Decreased Breath Sounds Neuro: Positive: Grossly Intact Abdomen: Negative: Tender Skin: Negative: Rash Musculoskeletal: No Pain Extremities: Absent: edema - Labs and Meds CBC 09/30/19 Range/Units 10:19 WBC 7.9 (4.5-11.0) K/mm3 RBC 4.21 (3.65-5.03) M/mm3 Hgb 14.4 H (10.1-14.3) gm/dl Hct 41.3 (30.3-42.9) % Plt Count 235 (140-440) K/mm3 - Imaging and Cardiology EKG: report reviewed, image reviewed Echo: report reviewed ( 03/2018 showed EF 25-30%, anterior wall, inferior wall and apex severely hypokinetic, impaired relaxation, aortic root mildly dilated. ) Cardiac cath: report reviewed (02/2014 showed patent stent in prox LAD, catheter- induced spasm in the prox LAD resolved with intracoronary nitro, EF 15-20%. ) - Telemetry EKG Rhythm: Sinus Rhythm - EKG Sinus rhythms and dysrhythmias: sinus rhythm
[2019-09-30] MEDS: carvediloL 25 MG TAB PO SCH (13:17)
[2019-09-30] MEDS: SPIRONOLACTONE 25 MG TAB PO SCH (13:17)
== END 2019-09-30 15:06 | disposition home or self-care (01) ==
LOC: ED 04:04 → 4A 11:56 → INTOOBSV 11:56
PROVIDERS: ADMIT Internal Medicine; ATTEND Internal Medicine
DX: I11.0 Hypertensive heart disease with heart failure (principal); I50.43 Acute on chronic combined systolic (congestive) and diastolic (congestive) heart failure; I25.119 Atherosclerotic heart disease of native coronary artery with unspecified angina pectoris; R11.2 Nausea with vomiting, unspecified; E66.9 Obesity, unspecified; R65.21 Severe sepsis with septic shock; K44.9 Diaphragmatic hernia without obstruction or gangrene; K59.00 Constipation, unspecified; I25.5 Ischemic cardiomyopathy; Z95.0 Presence of cardiac pacemaker; Z95.5 Presence of coronary angioplasty implant and graft; Z79.02 Long term (current) use of antithrombotics/antiplatelets; Z79.01 Long term (current) use of anticoagulants; Z68.36 Body mass index [BMI] 36.0-36.9, adult
CPT/HCPCS: 36415; 71045; 71275; 74177; 80053; 81001; 83690; 83735; 83880; 84439; 84443; 84484; 84703; 85025; 85027; 85379; 87116; 90686; 93005; 93010; 93306; 93970; 96361; 96365; 96372; 96375; 96376; 99291; A9270; G0378; J0696; J1170; J1650; J2270; J2405; J7040; Q9967; 96374

== ENCOUNTER 2019-10-03 12:51 | Observation (INO) | payer MEDICAID ==
[2019-10-03] MEDS ORDERED: HYDROmorphone 1 MG/1 ML INJ IV ONE ×4 (14:32→23:45)
[2019-10-03] MEDS ORDERED: ONDANSETRON 4 MG/2 ML INJ IV ONE ×2 (14:32→17:16)
--- NOTE | 2019-10-03 14:34 | Emergency Department Report ---
ED General Adult HPI - General Chief complaint: Pain General Stated complaint: (L) ARM PAIN Time Seen by Provider: 10/03/19 14:20 Source: police Mode of arrival: Stretcher Limitations: No Limitations - History of Present Illness Initial comments: Patient is a 49-year-old female that presents emergency room with complaints of muscle cramps, abdominal pain and intractable nausea vomiting. Patient states her symptoms started yesterday. Patient states she was recently in the hospital and she hasn't felt well since prior to coming to her last time. Patient states her abdominal pain or cramps are a 10 out of 10. Patient states there worsening. Patient states she's having cramps in her arms and her legs. Patient states her abdominal pain is generalized. Patient states her pain is better with rest and worse with exertion. Patient states her pain is worse with vomiting. Patient states that she's not available to hold any food down. Patient states when she left the hospital she was feeling a little bit better but got worse when she got home. . -: Sudden Location: abdomen Radiation: non-radiation Severity scale (0 -10): 10 Quality: stabbing, aching, other (cramping) Consistency: constant Improves with: rest Worsens with: movement Associated Symptoms: loss of appetite, malaise, nausea/vomiting Treatments Prior to Arrival: none - Related Data Home Medications Medication Instructions Recorded Confirmed Last Taken Clopidogrel Bisulfate [Plavix] 75 mg PO DAILY 02/23/14 10/03/19 10/02/19 Carvedilol [Coreg] 25 mg PO BID 02/23/19 10/03/19 10/02/19 Furosemide [Lasix TAB] 40 mg PO QDAY 02/23/19 10/03/19 10/02/19 Potassium Chloride 20 meq PO QID 02/23/19 10/03/19 10/02/19 metOLazone [Metolazone] 2.5 mg PO QDAY 02/23/19 10/03/19 10/02/19 Previous Rx's Medication Instructions Recorded Last Taken Type Folic Acid [Folvite] 1 mg PO QDAY #30 tablet 07/27/15 10/02/19 Rx Lisinopril [Zestril TAB] 5 mg PO QDAY #30 tablet 02/24/19 10/02/19 Rx Ondansetron [Zofran ODT TAB] 4 mg PO Q6H PRN #30 tab.rapdis 09/30/19 10/02/19 Rx Allergies Allergy/AdvReac Type Severity Reaction Status Date / Time No Known Allergies Allergy Verified 07/06/14 09:55 ED Review of Systems ROS: Stated complaint: (L) ARM PAIN Other details as noted in HPI Constitutional: malaise. denies: chills, fever Eyes: denies: eye pain, eye discharge, vision change ENT: denies: ear pain, throat pain Respiratory: denies: cough, shortness of breath, wheezing Cardiovascular: denies: chest pain, palpitations Endocrine: no symptoms reported Gastrointestinal: abdominal pain, nausea, vomiting. denies: diarrhea Genitourinary: denies: urgency, dysuria, discharge Musculoskeletal: myalgia. denies: back pain, joint swelling, arthralgia Skin: denies: rash, lesions Neurological: denies: headache, weakness, paresthesias Psychiatric: denies: anxiety, depression Hematological/Lymphatic: denies: easy bleeding, easy bruising ED Past Medical Hx - Past Medical History Previous Medical History?: Yes Hx Hypertension: Yes Hx CVA: Yes (2015, no deficits) Hx Heart Attack/AMI: Yes Hx Congestive Heart Failure: Yes Hx Renal Disease: No Hx Asthma: No Hx COPD: No Additional medical history: CVD. High cholestrol - Surgical History Past Surgical History?: Yes Hx Coronary Stent: Yes (x1) Hx Pacemaker: Yes Hx Internal Defibrillator: Yes Additional Surgical History: stent x 1, placed in 2008. Defribrilator - Social History Smoking Status: Unknown if ever smoked Substance Use Type: None - Medications Home Medications: Home Medications Medication Instructions Recorded Confirmed Last Taken Type Clopidogrel Bisulfate [Plavix] 75 mg PO DAILY 02/23/14 10/03/19 10/02/19 History Folic Acid [Folvite] 1 mg PO QDAY #30 tablet 07/27/15 10/03/19 10/02/19 Rx Carvedilol [Coreg] 25 mg PO BID 02/23/19 10/03/19 10/02/19 History Furosemide [Lasix TAB] 40 mg PO QDAY 02/23/19 10/03/19 10/02/19 History Potassium Chloride 20 meq PO QID 02/23/19 10/03/19 10/02/19 History metOLazone [Metolazone] 2.5 mg PO QDAY 02/23/19 10/03/19 10/02/19 History Lisinopril [Zestril TAB] 5 mg PO QDAY #30 tablet 02/24/19 10/03/19 10/02/19 Rx Ondansetron [Zofran ODT TAB] 4 mg PO Q6H PRN #30 tab.rapdis 09/30/19 10/03/19 10/02/19 Rx ED Physical Exam - General Limitations: No Limitations General appearance: alert, in no apparent distress - Head Head exam: Present: atraumatic, normocephalic - Eye Eye exam: Present: normal appearance - ENT ENT exam: Present: mucous membranes moist - Neck Neck exam: Present: normal inspection - Respiratory Respiratory exam: Present: normal lung sounds bilaterally. Absent: respiratory distress, wheezes, rales - Cardiovascular Cardiovascular Exam: Present: regular rate, normal rhythm. Absent: systolic murmur, diastolic murmur, rubs, gallop - GI/Abdominal GI/Abdominal exam: Present: soft, normal bowel sounds. Absent: distended, tenderness, guarding - Extremities Exam Extremities exam: Present: normal inspection - Back Exam Back exam: Present: normal inspection - Neurological Exam Neurological exam: Present: alert, oriented X3 - Psychiatric Psychiatric exam: Present: normal affect, normal mood - Skin Skin exam: Present: warm, dry, intact, normal color. Absent: rash ED Course Vital Signs 10/03/19 10/03/19 10/03/19 13:15 14:34 15:55 Temperature 98.0 F Pulse Rate 111 H 102 H 103 H Respiratory 18 18 20 Rate Blood Pressure 136/83 Blood Pressure 137/92 137/90 [Left] O2 Sat by Pulse 100 100 100 Oximetry 10/03/19 20:23 Temperature Pulse Rate 104 H Respiratory 24 Rate Blood Pressure Blood Pressure 125/92 [Left] O2 Sat by Pulse 99 Oximetry - Reevaluation(s) Reevaluation #1: Patient complains of extreme abdominal pain and nausea. Patient will be given Zofran and Dilaudid. 10/03/19 14:12 Reevaluation #2: She has had multiple doses of antiemetics and pain medication. Patient still having nausea vomiting. Patient failed by mouth challenge. Patient will be admitted to the hospitalist service. Patient agrees plan of care and admission. I discussed all results with patient. 10/03/19 20:12 - Consultations Consultation #1: Hospitalist consult for admission. Hospitalist admit patient. 10/03/19 20:12 ED Medical Decision Making - Lab Data Result diagrams: 10/03/19 14:43 10/03/19 14:43 - Radiology Data Radiology results: report reviewed No acute findings on abdominal CT. - Medical Decision Making Patient is a 49-year-old female that presents emergency room with complaints of body aches and body cramps, abdominal pain and nausea vomiting. Patient's nausea vomiting intractable. Patient has had multiple medications with no relief of pain or vomiting. Patient failed by mouth challenge. Patient's labs consistent with dehydration and hyponatremia and acidosis. Patient's CT scan of the abdomen is negative. Patient admitted to the hospitalist service. - Differential Diagnosis intractable nausea vomiting. Abdominal pain. Muscle cramps. Myalgias. Critical Care Time: Yes Critical care time in (mins) excluding proc time.: 35 Critical care attestation.: If time is entered above; I have spent that time in minutes in the direct care of this critically ill patient, excluding procedure time. Critical Care Time: 35 minutes ED Disposition Clinical Impression: Intractable nausea and vomiting, Dehydration, Intractable pain, Hyponatremia, Gastroenteritis, Metabolic acidosis Elevated WBC count Qualifiers: Leukocytosis type: unspecified Qualified Code(s): D72.829 - Elevated white blood cell count, unspecified Abdominal pain Qualifiers: Abdominal location: generalized Qualified Code(s): R10.84 - Generalized abdominal pain Disposition: OP ADMIT IP TO THIS HOSP Is pt being admited?: Yes Does the pt Need Aspirin: No Condition: Critical Time of Disposition: 20:16
[2019-10-03 14:59] LABS: Basophils # (Auto) 0.1 K/mm3 (0.0-0.1); Eosinophils % (Auto) 0.1 % (0.0-4.3); Hematocrit 48.2 % (30.3-42.9); Lymphocytes # (Auto) 2.5 K/mm3 (1.2-5.4); Lymphocytes % (Auto) 21.1 % (13.4-35.0); Mean Corpuscular HGB Conc 35 % (30-34); Mean Corpuscular Volume 95 fl (79-97); Monocytes # (Auto) 1.2 K/mm3 (0.0-0.8); Monocytes % (Auto) 10.4 % (0.0-7.3); Platelet Count 335 K/mm3 (140-440); Red Blood Count 5.09 M/mm3 (3.65-5.03); Red Cell Distribution Width 12.2 % (13.2-15.2)
[2019-10-03 15:41] LABS: Alanine Aminotransferase 15 units/L (7-56); BUN/Creatinine Ratio 31; Blood Urea Nitrogen 25 mg/dL (7-17); Calcium 9.9 mg/dL (8.4-10.2); Hemolysis Index 38
[2019-10-03 16:06] LABS: Bilirubin,Direct < 2.0 mg/dL (0-0.2)
[2019-10-03] MEDS ORDERED: SODIUM CHLORIDE 0.9% 500 ML 500 ML IV ONE (17:14)
[2019-10-03 17:26] LABS: Bacteria,Urine 1+ /HPF (Negative); Bilirubin,Urine NEG (Negative); Blood,Urine NEG (Negative); Color,Urine Amber (Yellow); Hyaline Casts,Urine 1 /LPF; Mucus,Urine 3+ /HPF; Urobilinogen,Urine < 2.0 mg/dL (<2.0)
[2019-10-03 17:59] LABS: HCG Qualitative,Urine Negative (Negative)
--- NOTE | 2019-10-03 19:00 | Cat Scan Report ---
CT ABDOMEN AND PELVIS WITH CONTRAST HISTORY: Abdominal pain. COMPARISON: CT of the abdomen and pelvis on 09/29/2019. TECHNIQUE: Routine abdominal and pelvic CT exam performed following intravenous contrast administrat ion. The patient received 100 cc of IV Omnipaque 300. All CT scans at this location are performed usi ng CT dose reduction for ALARA by means of automated exposure control. FINDINGS: CT ABDOMEN: Lung Bases: Unchanged small moderate hiatal hernia. Liver: No significant abnormality. Biliary: No significant abnormality. Spleen: No significant abnormality. Unenlarged. Pancreas: No significant abnormality. Adrenals: No significant abnormality. Kidneys: No significant abnormality. Lymphatics: No lymphadenopathy. Vasculature: No significant abnormality. Bowel/Peritoneum: No significant abnormality. No free air. No free fluid. Normal appendix. CT PELVIC: : No significant abnormality. Lymphatics: No lymphadenopathy. Osseous Structures: No aggressive appearing osseous lesions. Additional Findings: None IMPRESSION: 1. No acute findings or adverse change from prior exams. Signer Name: Freddie Corona MD Signed: 10/03/2019 6:55 PM Workstation Name: [email or web address]
[2019-10-03] MEDS ORDERED: ALBUTEROL 2.5 MG/3 ML NEBU IH PRN (20:15)
[2019-10-03] MEDS ORDERED: ACETAMINOPHEN 325 MG TAB PO PRN (20:15)
--- NOTE | 2019-10-03 20:17 | History and Physical Report ---
History of Present Illness Chief complaint: Im sick at my stomach History of present illness: 49 YO Female with HTN, Systolic CHF(EF 15%), CVA, [place], CAD S/P Stent Placement, Obesity presents to ED for evaluation. Pt states that she has experienced abdominal cramping, muscle cramping, nausea, and multiple episodes of vomiting over the past 1 days with worsening symptoms over the past 8 hours. EMS notified, and upon arrival the patient was found to be in distress. Pt avalos transported to [facility]. Pt seen and evaluated in ED and found to have Intractible Nausea/vomiting suspected secondary to Gastritis, and unable to tolerate oral diet, and oral medication, Hyponatremia, as well as Acidosis. Pt symptoms not resolved with antiemetic therapy, and IVF resuscitation. Pt placed in observation status and admitted to medical floor. Pt denies fever, chills, palpitations, syncope, prolonged travel/immobility, individual/family history of DVT/PE/Bleeding/Blood Clotting Disorders. Prior admission on 09/29/19 reviewed. All listed medication reconciled at time of admission. Past History Past Medical History: other (see HPI) Past Surgical History: Other (Stent, Pacemaker/ICD) Social history: , lives with family. denies: smoking, alcohol abuse Family history: hypertension Medications and Allergies Allergies Allergy/AdvReac Type Severity Reaction Status Date / Time No Known Allergies Allergy Verified 07/06/14 09:55 Home Medications Medication Instructions Recorded Confirmed Last Taken Type Clopidogrel Bisulfate [Plavix] 75 mg PO DAILY 02/23/14 02/23/19 07/25/15 History 75 MG Folic Acid [Folvite] 1 mg PO QDAY #30 tablet 07/27/15 02/23/19 Unknown Rx Carvedilol [Coreg] 25 mg PO BID 02/23/19 02/23/19 Unknown History Furosemide [Lasix TAB] 40 mg PO QDAY 02/23/19 02/23/19 Unknown History ISOSORBIDE MONOnitrate [Imdur ER] 120 mg PO QAM 02/23/19 02/23/19 Unknown History Nitroglycerin 0.3 mg SL PRN PRN 02/23/19 02/23/19 Unknown History Potassium Chloride 20 meq PO QID 02/23/19 02/23/19 Unknown History Spironolactone [Aldactone] 25 mg PO BID 02/23/19 02/23/19 Unknown History metOLazone [Metolazone] 2.5 mg PO QDAY 02/23/19 02/23/19 Unknown History Lisinopril [Zestril TAB] 5 mg PO QDAY #30 tablet 02/24/19 Unknown Rx Ketorolac [Toradol] 10 mg PO Q6H PRN #15 tablet 07/14/19 Unknown Rx methOCARBAMOL [Robaxin TAB] 750 mg PO Q8H PRN #14 tablet 07/14/19 Unknown Rx Cyclobenzaprine [Flexeril 10 MG 10 mg PO TID PRN #20 tablet 08/27/19 Unknown Rx TAB] Ibuprofen [Motrin 800 MG tab] 800 mg PO TID #15 tablet 08/27/19 Unknown Rx traMADoL [Ultram 50 MG tab] 50 mg PO Q6HR PRN #10 tablet 09/15/19 Unknown Rx Bisacodyl [Dulcolax suppos] 10 mg AL QDAY PRN #20 supp.rect 09/30/19 Unknown Rx Ondansetron [Zofran ODT TAB] 4 mg PO Q6H PRN #30 tab.rapdis 09/30/19 Unknown Rx Sennosides/Docusate [Senokot S] 1 each PO Q12HR #30 tab 09/30/19 Unknown Rx Review of Systems Constitutional: no weight loss, no weight gain, no fever, no chills Ears, nose, mouth and throat: no ear pain, no ear discharge, no tinnitis, no decreased hearing, no nasal discharge Breasts: no change in shape, no swelling, no mass Cardiovascular: no chest pain, no edema Respiratory: no cough, no cough with sputum, no hemoptysis, no shortness of yahaira ath Gastrointestinal: nausea, vomiting, loss of appetite, no constipation, no hematemesis, no hematochezia, no indigestion Genitourinary Female: no pelvic pain, no flank pain, no menorrhagia, no dysuria, no urinary frequency, no urgency Rectal: no pain, no incontinence, no bleeding Musculoskeletal: no neck stiffness, no neck pain, no shooting arm pain, no arm numbness/tingling, no shooting leg pain, no leg numbness/tingling, no redness of joints Integumentary: no rash, no pruritis, no redness, no wounds, no jaundice, no boils Neurological: no head injury, no transient paralysis, no weakness, no parathesias, no numbness, no syncope, no tremors Psychiatric: no anxiety, no memory loss, no change in sleep habits, no insomnia, no change in appetite, no change in libido, no suicidal ideation, no disorientation Endocrine: no cold intolerance, no heat intolerance, no polyphagia, no polydipsia, no polyuria, no nocturia, no excessive sweating, no flushing Hematologic/Lymphatic: no easy bruising, no easy bleeding, no lymphadenopathy Allergic/Immunologic: no urticaria, no allergic rhinitis, no wheezing, no persistent infections, no angioedema Exam - Constitutional Vitals: Temp Pulse Resp BP Pulse Ox 98.0 F 103 H 20 137/90 100 10/03/19 13:15 10/03/19 15:55 10/03/19 15:55 10/03/19 15:55 10/03/19 15:55 General appearance: Present: mild distress, obese - EENT Eyes: Present: PERRL ENT: hearing intact, clear oral mucosa - Neck Neck: Present: supple, normal ROM - Respiratory Respiratory effort: normal Respiratory: bilateral: CTA - Cardiovascular Heart Sounds: Present: S1 & S2. Absent: rub, click - Extremities Extremities: pulses symmetrical, No edema Peripheral Pulses: within normal limits - Abdominal General gastrointestinal: Present: soft, non-tender, non-distended, normal bowel sounds Female genitourinary: Present: normal - Integumentary Integumentary: Present: clear, warm, dry - Musculoskeletal Musculoskeletal: gait normal, strength equal bilaterally - Psychiatric Psychiatric: appropriate mood/affect, intact judgment & insight - Neurologic Neurologic: CNII-XII intact, moves all extremities Results - Labs CBC & Chem 7: 10/03/19 14:43 10/03/19 14:43 Labs: Abnormal lab results 10/03/19 10/03/19 Range/Units 14:43 14:43 WBC 12.0 H (4.5-11.0) K/mm3 RBC 5.09 H (3.65-5.03) M/mm3 Hgb 17.0 H (10.1-14.3) gm/dl Hct 48.2 H (30.3-42.9) % MCH 33 H (28-32) pg MCHC 35 H (30-34) % RDW 12.2 L (13.2-15.2) % [place] % (Auto) 10.4 H (0.0-7.3) % [place] # 1.2 H (0.0-0.8) K/mm3 Seg Neutrophils # 8.1 H (1.8-7.7) K/mm3 Sodium 127 L D (137-145) mmol/L Chloride 90.3 L (98-107) mmol/L Carbon Dioxide 14 L (22-30) mmol/L BUN 25 H (7-17) mg/dL Glucose 107 H (65-100) mg/dL Direct Bilirubin < 2.0 H (0-0.2) mg/dL Assessment and Plan - Patient Problems (1) Gastroenteritis Current Visit: Yes Status: Acute Plan to address problem: CT Abdomen/Pelvis, antiemetic therapy, serial abdominal exam, ppi therapy, clear liquids, advance as tolerated. (2) Hyponatremia syndrome Current Visit: Yes Status: Acute Plan to address problem: IVF resuscitation therapy, supportive care. repeat bmp (3) Acidosis Current Visit: Yes Status: Acute Plan to address problem: IV bicarbonate therapy, repeat bmp (4) Fibromyalgia Current Visit: Yes Status: Suspected Plan to address problem: Outpatient Rheumatology F/U care and evaluation. (5) DVT prophylaxis Current Visit: Yes Status: Acute Plan to address problem: SCD to BLE while in bed, Pt ambulatory
[2019-10-03] MEDS ORDERED: ACETAMINOPHEN 325 MG TAB ONE (20:41)
[2019-10-03] MEDS ORDERED: SODIUM CHLORIDE 0.9% 1000 ML 1,000 ML ONE (20:41)
[2019-10-03] MEDS: SODIUM CHLORIDE 0.9% 1000 ML 1,000 ML IV SCH (20:49)
[2019-10-03] MEDS: ONDANSETRON 4 MG/2 ML INJ IV PRN (23:24)
[2019-10-04] MEDS: SODIUM CHLORIDE 0.9% 1000 ML 1,000 ML IV SCH (07:30)
[2019-10-04] MEDS: ONDANSETRON 4 MG/2 ML INJ IV PRN (09:03)
[2019-10-04 09:22] LABS: Basophils % (Auto) 0.1 % (0.0-1.8); Eosinophils % (Auto) 0.1 % (0.0-4.3); Hematocrit 43.8 % (30.3-42.9); Hemoglobin 15.1 gm/dl (10.1-14.3); Lymphocytes # (Auto) 1.5 K/mm3 (1.2-5.4); Lymphocytes % (Auto) 14.9 % (13.4-35.0); Mean Corpuscular HGB Conc 35 % (30-34); Mean Corpuscular Volume 96 fl (79-97); Monocytes # (Auto) 1.1 K/mm3 (0.0-0.8); Monocytes % (Auto) 10.5 % (0.0-7.3); Platelet Count 292 K/mm3 (140-440); Red Blood Count 4.56 M/mm3 (3.65-5.03); Red Cell Distribution Width 12.5 % (13.2-15.2)
[2019-10-04 09:38] LABS: Alanine Aminotransferase 13 units/L (7-56); Albumin 3.8 g/dL (3.9-5); BUN/Creatinine Ratio 35; Blood Urea Nitrogen 21 mg/dL (7-17); Calcium 9.1 mg/dL (8.4-10.2); Hemolysis Index 58
[2019-10-04] MEDS ORDERED: HALOPERIDOL LACTATE 5 MG/1 ML INJ IM ONE (10:51)
[2019-10-04] MEDS ORDERED: DOCUSATE SODIUM 100 MG CAP PO SCH (11:00)
--- NOTE | 2019-10-04 12:37 | Gastroenterology Consultation ---
<TRIP BAIN - Last Filed: 10/04/19 12:51> History of Present Illness - Reason for Consult Consult date: 10/04/19 N/V Requesting physician: SHANTI SOUSA - History of Present Illness Patient is a 49 y/o female with PMH of HTN, CHF (s/p ICD), CVA, [place], CAD (s/p stent), and obesity who presented to ED with c/o generalized abd pain described as cramping with associated N/V to which GI has been consulted. Abd CT w/o acute findings. This afternoon, patient was resting in bed w/o acute distress. Reports N/v improving with only 1 episode of vomiting this am. Denies fever, CP, SOB, wt loss, signs of bleeding, diarrhea, or constipation. Patient is previously known to our service. She has a hx of chronic episodes of N/V thought to possibly be related to cannabinoid hyperemesis with undergoing last EGD by Dr. Arthur 11/2017 that showed esophagitis, moderate hiatal hernia, antral erosions, and nicolas duodenal erythema. Admits to continued chronic marijuana use (last used ~3 wks ago). No NSAIDs. Reports hx of possible PUD > 20yrs ago. Past History Past Medical History: other (see HPI) Past Surgical History: Other (Stent, Pacemaker/ICD) Social history: , lives with family. denies: smoking, alcohol abuse Family history: hypertension Medications and Allergies Allergies Allergy/AdvReac Type Severity Reaction Status Date / Time No Known Allergies Allergy Verified 07/06/14 09:55 Home Medications Medication Instructions Recorded Confirmed Last Taken Type Clopidogrel Bisulfate [Plavix] 75 mg PO DAILY 02/23/14 10/03/19 10/02/19 History Folic Acid [Folvite] 1 mg PO QDAY #30 tablet 07/27/15 10/03/19 10/02/19 Rx Carvedilol [Coreg] 25 mg PO BID 02/23/19 10/03/19 10/02/19 History Potassium Chloride 20 meq PO QID 02/23/19 10/03/19 10/02/19 History metOLazone [Metolazone] 2.5 mg PO QDAY 02/23/19 10/03/19 10/02/19 History Lisinopril [Zestril TAB] 5 mg PO QDAY #30 tablet 02/24/19 10/03/19 10/02/19 Rx Ondansetron [Zofran ODT TAB] 4 mg PO Q6H PRN #30 tab.rapdis 09/30/19 10/03/19 10/02/19 Rx Bisacodyl [Dulcolax suppos] 10 mg RI QDAY PRN #30 supp.rect 10/04/19 Unknown Rx Docusate Sodium [Colace CAP] 100 mg PO BID #30 capsule 10/04/19 Unknown Rx Furosemide [Lasix] 20 mg PO QDAY #30 tablet 10/04/19 Unknown Rx Melatonin [Melatonin 10MG CAP] 10 mg PO QHS #30 capsule 10/04/19 Unknown Rx Active Meds: Active Medications Acetaminophen (Tylenol) 650 mg PO Q4H PRN PRN Reason: Pain MILD(1-3)/Fever >100.5/MORAES Last Admin: 10/03/19 20:43 Dose: 650 mg Documented by: Albuterol (Proventil) 2.5 mg IH Q4HRT PRN PRN Reason: Shortness Of Breath Bisacodyl (Dulcolax) 10 mg RI QDAY PRN PRN Reason: Constipation Docusate Sodium (Colace) 100 mg PO BID [facility] Last Admin: 10/04/19 11:47 Dose: 100 mg Documented by: Sodium Chloride (Nacl 0.9% 1000 Ml) 1,000 mls @ 100 mls/hr IV DIRECT [facility] Last Admin: 10/04/19 07:30 Dose: 100 mls/hr Documented by: Ondansetron HCl (Zofran) 4 mg IV Q8H PRN PRN Reason: Nausea And Vomiting Last Admin: 10/04/19 09:03 Dose: 4 mg Documented by: Sodium Chloride (Sodium Chloride Flush Syringe 10 Ml) 10 ml IV BID [facility] Last Admin: 10/04/19 09:03 Dose: 10 ml Documented by: Sodium Chloride (Sodium Chloride Flush Syringe 10 Ml) 10 ml IV PRN PRN PRN Reason: LINE FLUSH medications reviewed/updated as required Review of Systems - Review of Systems All systems: negative Gastrointestinal: abdominal pain (generalized cramping), nausea, vomiting Exam - Constitutional Vital Signs: Temp Pulse Resp BP Pulse Ox 97.8 F 103 H 17 96/66 95 10/04/19 04:58 10/04/19 04:58 10/04/19 04:58 10/04/19 04:58 10/04/19 08:43 General appearance: no acute distress - EENT Eyes: PERRL, EOM intact ENT: hearing intact - Respiratory Respiratory effort: normal - Cardiovascular Rhythm: regular - Gastrointestinal General gastrointestinal: Present: soft, tender (slight generalized TTP), non- distended, normal bowel sounds - Integumentary Integumentary: Present: warm, dry - Neurologic Neurological: alert and oriented x3 - Labs CBC & Chem 7: 10/04/19 08:04 10/04/19 08:04 Lab Results: Laboratory Results - last 24 hr 10/03/19 10/03/19 10/03/19 14:43 14:43 14:43 WBC 12.0 H RBC 5.09 H Hgb 17.0 H Hct 48.2 H MCV 95 MCH 33 H MCHC 35 H RDW 12.2 L Plt Count 335 Lymph % (Auto) 21.1 [place] % (Auto) 10.4 H Eos % (Auto) 0.1 Baso % (Auto) 1.0 Lymph # 2.5 [place] # 1.2 H Eos # 0.0 Baso # 0.1 Seg Neutrophils % 67.4 Seg Neutrophils # 8.1 H Sodium 127 L D Potassium 3.6 Chloride 90.3 L Carbon Dioxide 14 L Anion Gap 26 BUN 25 H Creatinine 0.8 Estimated GFR > 60 BUN/Creatinine Ratio 31 Glucose 107 H Calcium 9.9 Total Bilirubin 1.20 Direct Bilirubin < 2.0 H Indirect Bilirubin -0.8 AST 14 ALT 15 Alkaline Phosphatase 71 Total Creatine Kinase 74 Total Protein 8.2 Albumin 4.0 Albumin/Globulin Ratio 1.0 Urine Color Urine Turbidity Urine pH Ur Specific [place] Urine Protein Urine Glucose (UA) Urine Ketones Urine Blood Urine Nitrite Urine Bilirubin Urine Urobilinogen Ur Leukocyte Esterase Urine WBC (Auto) Urine RBC (Auto) U Epithel Cells (Auto) Urine Bacteria (Auto) Hyaline Casts Urine Mucus Urine HCG, Qual 10/03/19 10/03/19 10/04/19 17:08 17:08 08:04 WBC 10.2 RBC 4.56 Hgb 15.1 H Hct 43.8 H MCV 96 MCH 33 H MCHC 35 H RDW 12.5 L Plt Count 292 Lymph % (Auto) 14.9 [place] % (Auto) 10.5 H Eos % (Auto) 0.1 Baso % (Auto) 0.1 Lymph # 1.5 [place] # 1.1 H Eos # 0.0 Baso # 0.0 Seg Neutrophils % 74.4 H Seg Neutrophils # 7.6 Sodium Potassium Chloride Carbon Dioxide Anion Gap BUN Creatinine Estimated GFR BUN/Creatinine Ratio Glucose Calcium Total Bilirubin Direct Bilirubin Indirect Bilirubin AST ALT Alkaline Phosphatase Total Creatine Kinase Total Protein Albumin Albumin/Globulin Ratio Urine Color [place] Urine Turbidity Slightly-cloudy Urine pH 5.0 Ur Specific [place] 1.028 Urine Protein 30 mg/dl Urine Glucose (UA) Neg Urine Ketones 20 Urine Blood Neg Urine Nitrite Neg Urine Bilirubin Neg Urine Urobilinogen < 2.0 Ur Leukocyte Esterase Neg Urine WBC (Auto) 2.0 Urine RBC (Auto) 4.0 U Epithel Cells (Auto) 4.0 Urine Bacteria (Auto) 1+ Hyaline Casts 1 Urine Mucus 3+ Urine HCG, Qual Negative 10/04/19 10/04/19 08:04 08:04 WBC RBC Hgb Hct MCV MCH MCHC RDW Plt Count Lymph % (Auto) [place] % (Auto) Eos % (Auto) Baso % (Auto) Lymph # [place] # Eos # Baso # Seg Neutrophils % Seg Neutrophils # Sodium 131 L Potassium 3.7 Chloride 95.2 L Carbon Dioxide 20 L Anion Gap 20 BUN 21 H Creatinine 0.6 L Estimated GFR > 60 BUN/Creatinine Ratio 35 Glucose 97 Calcium 9.1 Total Bilirubin 0.70 Direct Bilirubin Indirect Bilirubin AST 13 ALT 13 Alkaline Phosphatase 61 Total Creatine Kinase 59 Total Protein 6.6 Albumin 3.8 L Albumin/Globulin Ratio 1.4 Urine Color Urine Turbidity Urine pH Ur Specific [place] Urine Protein Urine Glucose (UA) Urine Ketones Urine Blood Urine Nitrite Urine Bilirubin Urine Urobilinogen Ur Leukocyte Esterase Urine WBC (Auto) Urine RBC (Auto) U Epithel Cells (Auto) Urine Bacteria (Auto) Hyaline Casts Urine Mucus Urine HCG, Qual Assessment and Plan 1.N/V -afebrile -WBC WNL -LFTs WNL -abd CT w/o acute findings (GB normal) -last EGD for chronic similar symptoms 11/[address] Arthur showed esophagitis, moderate hiatal hernia, antral erosions, and nicolas duodenal erythema -etiology-likely 2/2 cannabinoid hyperemesis vs other -clinically, patient is stable with N/V improving (1 episode of vomiting this am). -no plan for EGD at this time, will consider based on progress -given 1 dose haldol now for N/V per Dr. bryan -start on daily PPI -avoid narcotics for this may exacerbate symptoms -diet as tolerated -continue to trend labs and supportive care -marijuana cessations discussed/encouraged with patient -once tolerating PO, okay to be d/c per GI standpoint with f/u in clinic for further workup/management if symptoms persists <MAGAN BRYAN - Last Filed: 10/04/19 20:09> Exam - Constitutional Vital Signs: Temp Pulse Resp BP Pulse Ox 97.9 F 83 20 146/99 100 10/04/19 11:51 10/04/19 11:51 10/04/19 11:51 10/04/19 11:51 10/04/19 11:51 - Labs CBC & Chem 7: 10/04/19 08:04 10/04/19 08:04 Lab Results: Laboratory Results - last 24 hr 10/04/19 10/04/19 10/04/19 08:04 08:04 08:04 WBC 10.2 RBC 4.56 Hgb 15.1 H Hct 43.8 H MCV 96 MCH 33 H MCHC 35 H RDW 12.5 L Plt Count 292 Lymph % (Auto) 14.9 [place] % (Auto) 10.5 H Eos % (Auto) 0.1 Baso % (Auto) 0.1 Lymph # 1.5 [place] # 1.1 H Eos # 0.0 Baso # 0.0 Seg Neutrophils % 74.4 H Seg Neutrophils # 7.6 Sodium 131 L Potassium 3.7 Chloride 95.2 L Carbon Dioxide 20 L Anion Gap 20 BUN 21 H Creatinine 0.6 L Estimated GFR > 60 BUN/Creatinine Ratio 35 Glucose 97 Calcium 9.1 Total Bilirubin 0.70 AST 13 ALT 13 Alkaline Phosphatase 61 Total Creatine Kinase 59 Total Protein 6.6 Albumin 3.8 L Albumin/Globulin Ratio 1.4 Urine Opiates Screen Urine Methadone Screen Ur Barbiturates Screen Ur Phencyclidine Scrn Ur Amphetamines Screen U Benzodiazepines Scrn Urine Cocaine Screen U Marijuana (THC) Screen Drugs of Abuse Note 10/04/19 15:50 WBC RBC Hgb Hct MCV MCH MCHC RDW Plt Count Lymph % (Auto) [place] % (Auto) Eos % (Auto) Baso % (Auto) Lymph # [place] # Eos # Baso # Seg Neutrophils % Seg Neutrophils # Sodium Potassium Chloride Carbon Dioxide Anion Gap BUN Creatinine Estimated GFR BUN/Creatinine Ratio Glucose Calcium Total Bilirubin AST ALT Alkaline Phosphatase Total Creatine Kinase Total Protein Albumin Albumin/Globulin Ratio Urine Opiates Screen Presumptive negative Urine Methadone Screen Presumptive negative Ur Barbiturates Screen Presumptive negative Ur Phencyclidine Scrn Presumptive negative Ur Amphetamines Screen Presumptive negative U Benzodiazepines Scrn Presumptive negative Urine Cocaine Screen Presumptive negative U Marijuana (THC) Screen Presumptive positive Drugs of Abuse Note Disclamer Assessment and Plan Patient seen and examined; Agree with note above.
[2019-10-04] MEDS ORDERED: PANTOPRAZOLE 40 MG INJ IV SCH (13:00)
--- NOTE | 2019-10-04 15:23 | Discharge Summary ---
Providers - Providers Date of Admission: 10/03/19 20:15 Attending physician: SHANTI SOUSA MD 10/04/19 09:00 Consult to Physician [CONS] Routine Comment: Consulting Provider: LES REYNA Physician Instructions: Reason For Exam: INTRACTABLE NAUSEA AND VOMITING. [facility] Reason for admission: ABDOMINAL PAIN Condition: Stable Hospital course: 49 YO Female with HTN, Systolic CHF(EF 15%), CVA, [place], CAD S/P Stent Placement, Obesity presents to ED for evaluation. Pt states that she has experienced abdominal cramping, muscle cramping, nausea, and multiple episodes of vomiting over the past 1 days with worsening symptoms over the past 8 hours. EMS notified, and upon arrival the patient was found to be in distress. Pt avalos transported to [facility]. Pt seen and evaluated in ED and found to have Intractible Nausea/vomiting suspected secondary to Gastritis, and unable to tolerate oral diet, and oral medication, Hyponatremia, as well as Acidosis. Pt symptoms not resolved with antiemetic therapy, and IVF resuscitation. Pt placed in observation status and admitted to medical floor. Pt denies fever, chills, palpitations, syncope, prolonged travel/immobility, individual/family history of DVT/PE/Bleeding/Blood Clotting Disorders. Prior admission on 09/29/19 reviewed. All listed medication reconciled at time of admission. Advised against THC use Pateint has not been complaint with the medications prescribed during last discharge Advised to follow with Pain Specialist for chronic Pain syndrome May benefit from Psych evaluation for possible underlying Anxiety disorder. CBT recommended at this time GI evaluated -afebrile -WBC WNL -LFTs WNL -abd CT w/o acute findings (GB normal) -last EGD for chronic similar symptoms 11/[address] Arthur showed esophagitis, moderate hiatal hernia, antral erosions, and nicolas duodenal erythema -etiology-likely 2/2 cannabinoid hyperemesis vs other -clinically, patient is stable with N/V improving (1 episode of vomiting this am). -no plan for EGD at this time, will consider based on progress -given 1 dose haldol now for N/V per Dr. bryan -start on daily PPI -avoid narcotics for this may exacerbate symptoms -diet as tolerated -continue to trend labs and supportive care -marijuana cessations discussed/encouraged with patient -once tolerating PO, okay to be d/c per GI standpoint with f/u in clinic for further workup/management if symptoms persists Patient was discharged following tolerating PO as recommended Patient throughout the stay in the hospital was laughing and on the phone mild when there is nobody around but when staff came in she would abruptly stop her conversation and began to moan and groan. On discharge she asked me for medication to help her with sleep I did prescribe melatonin but discussed the interaction with other medication that she is taken. 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 Gastroenteritis Current Visit: Yes Status: Acute Plan to address problem: CT Abdomen/Pelvis, NEGATIVE Hyponatremia syndrome Current Visit: Yes Status: Acute Plan to address problem: IVF resuscitation therapy, supportive care. Acidosis Current Visit: Yes Status: Acute Plan to address problem: IV bicarbonate therapy, repeat bmp Fibromyalgia Current Visit: Yes Status: Suspected Plan to address problem: Outpatient Rheumatology F/U care and evaluation DISCUSSED WITH THE PATIENT AND RECOMMENDED TO HAVE PCP REFER. CAD (coronary artery disease) Current Visit: Yes Status: Chronic Qualifiers: Associated angina: with stable angina Stented coronary artery Current Visit: Yes Status: Chronic Ischemic cardiomyopathy Current Visit: Yes Status: Chronic AICD (automatic cardioverter/defibrillator) present Current Visit: Yes Status: Chronic Morbid Obesity Current Visit: Yes Status: Chronic Hiatal hernia Current Visit: Yes Status: Chronic Disposition: DC-01 TO HOME OR SELFCARE Time spent for discharge: 35 mins Core Measure Documentation - Palliative Care Palliative Care/ Comfort Measures: Not Applicable - Core Measures Any of the following diagnoses?: none Exam - Physical Exam Narrative exam: VITAL SIGNS: Reviewed. GENERAL: The patient appears normally developed, morbidly obese vital signs as documented. HEAD: No signs of head trauma. EYES: Pupils are equal. Extraocular motions intact. EARS: Hearing grossly intact. MOUTH: Oropharynx is normal. NECK: No adenopathy, no JVD. CHEST: Chest with clear breath sounds bilaterally. No wheezes, rales, or rhonchi. CARDIAC: Regular rate and rhythm. S1 and S2, without murmurs, gallops, or rubs. VASCULAR: No Edema. Peripheral pulses normal and equal in all extremities. ABDOMEN: Soft, non tender and non distended. No rebound or guarding, and no masses palpated. Bowel Sounds normal. MUSCULOSKELETAL: Good range of motion of all major joints. Extremities without clubbing, cyanosis or edema. NEUROLOGIC EXAM: Alert and oriented x 3 No focal sensory or strength deficits. Speech normal. Follows commands. PSYCHIATRIC: Mood normal. SKIN: detail exam as documented in skin assessment - Constitutional Vitals: Temp Pulse Resp BP Pulse Ox 97.8 F 103 H 17 96/66 95 10/04/19 04:58 10/04/19 04:58 10/04/19 04:58 10/04/19 04:58 10/04/19 08:43 Plan Activity: advance as tolerated, fall precautions Diet: low fat Special Instructions: record daily BP diary, record blood sugar diary Care Plan Goals: Consider underlying Anxiety. Recommend [facility] Behavioral therapy for a start Compliance with medication stressed Follow up with: [facility] [facility]IO [Primary Care Provider] - 7 Days MAGAN BRYAN MD [Staff Physician] - 7 Days Prescriptions: Melatonin [Melatonin 10MG CAP] 10 mg PO QHS #30 capsule Docusate Sodium [Colace CAP] 100 mg PO BID #30 capsule Bisacodyl [Dulcolax suppos] 10 mg [place] QDAY PRN #30 supp.rect PRN Reason: Constipation Furosemide [Lasix] 20 mg PO QDAY #30 tablet
[2019-10-04 16:26] LABS: Amphetamine Screen,Urine PRESUMPTIVE NEGATIVE; Benzodiazepines Screen,Urine PRESUMPTIVE NEGATIVE; Cocaine Screen,Urine PRESUMPTIVE NEGATIVE; Methadone Screen,Urine PRESUMPTIVE NEGATIVE; Opiate Screen,Urine PRESUMPTIVE NEGATIVE
[2019-10-04 16:38] LABS: Cannabinoid Screen,Urine PRESUMPTIVE POSITIVE
[2019-10-04 17:52] VITALS: BP 146/99
== END 2019-10-04 17:57 | disposition home or self-care (01) ==
LOC: ED 12:51 → 3A 20:15
PROVIDERS: ADMIT Internal Medicine; ATTEND Internal Medicine
DX: K52.9 Noninfective gastroenteritis and colitis, unspecified (principal); R11.2 Nausea with vomiting, unspecified; E87.1 Hypo-osmolality and hyponatremia; E87.2 Acidosis; M79.7 Fibromyalgia; E78.00 Pure hypercholesterolemia, unspecified; D72.829 Elevated white blood cell count, unspecified; E86.0 Dehydration; I25.5 Ischemic cardiomyopathy; E66.01 Morbid (severe) obesity due to excess calories; K44.9 Diaphragmatic hernia without obstruction or gangrene; I11.0 Hypertensive heart disease with heart failure; I50.20 Unspecified systolic (congestive) heart failure; I25.2 Old myocardial infarction; I25.10 Atherosclerotic heart disease of native coronary artery without angina pectoris; Z86.73 Personal history of transient ischemic attack (TIA), and cerebral infarction without residual deficits; Z95.5 Presence of coronary angioplasty implant and graft; Z95.0 Presence of cardiac pacemaker; Z79.02 Long term (current) use of antithrombotics/antiplatelets; Z79.899 Other long term (current) drug therapy; Z68.34 Body mass index [BMI] 34.0-34.9, adult
CPT/HCPCS: 36415; 74177; 80048; 80053; 80076; 80307; 81001; 81025; 82550; 85025; 87116; 96361; 96372; 96374; 96375; 96376; 99291; C9113; G0378; J1170; J1630; J2405; J7030; J7040; Q9967

== ENCOUNTER 2020-07-09 00:56 | Observation (INO) | payer MEDICAID ==
[2020-07-09] MEDS ORDERED: ASPIRIN 81 MG TAB CHEW PO ONE (01:27)
[2020-07-09] MEDS ORDERED: MORPHINE 4 MG/1 ML INJ IV ONE (01:28)
[2020-07-09] MEDS ORDERED: ONDANSETRON 4 MG/2 ML INJ IV ONE (01:28)
--- NOTE | 2020-07-09 01:33 | Emergency Department Report ---
ED Chest Pain HPI - General Chief Complaint: Chest Pain Stated Complaint: CHEST PAIN PUI?: No Time Seen by Provider: 07/09/20 01:18 Source: patient, EMS Mode of arrival: Stretcher Limitations: No Limitations - History of Present Illness Initial Comments: This is a 50-year-old female with history of CVA, heart failure EF 15%, CO status post PTCA, cardiac stent, hypertension, hyperlipidemia, GERD who presents with chest pain since 7 AM this morning. She has sharp severe chest pain that radiates to her left shoulder left arm left hand. Minimal relief with nitroglycerin. Pain has been persistent throughout the day. She arrived via EMS. She denies fever, cough, shortness of breath, vomiting. Patient has AICD present Her bag loader is Dr. Puneet ISRAEL Complaint: chest pain -: Gradual, This morning Onset: during rest Pain Location: substernal Pain Radiation: LUE Severity: moderate, severe Severity scale (0 -10): 8 Quality: sharp Consistency: constant Improves With: nitroglycerin Worsens With: nothing Treatments Prior to Arrival: nitroglycerin - Related Data Home Medications Medication Instructions Recorded Confirmed Last Taken Clopidogrel Bisulfate [Plavix] 75 mg PO DAILY 02/23/14 10/03/19 10/02/19 Carvedilol [Coreg] 25 mg PO BID 02/23/19 10/03/19 10/02/19 Potassium Chloride 20 meq PO QID 02/23/19 10/03/19 10/02/19 metOLazone [Metolazone] 2.5 mg PO QDAY 02/23/19 10/03/19 10/02/19 Previous Rx's Medication Instructions Recorded Last Taken Type Folic Acid [Folvite] 1 mg PO QDAY #30 tablet 07/27/15 10/02/19 Rx lisinopriL [Zestril TAB] 5 mg PO QDAY #30 tablet 02/24/19 10/02/19 Rx Ondansetron [Zofran ODT TAB] 4 mg PO Q6H PRN #30 tab.rapdis 09/30/19 10/02/19 Rx Docusate Sodium [Colace CAP] 100 mg PO BID #30 capsule 10/04/19 Unknown Rx Furosemide [Lasix] 20 mg PO QDAY #30 tablet 10/04/19 Unknown Rx Melatonin [Melatonin 10MG CAP] 10 mg PO QHS #30 capsule 10/04/19 Unknown Rx bisacodyL [Dulcolax suppos] 10 mg [place] QDAY PRN #30 supp.rect 10/04/19 Unknown Rx Acetaminophen/Codeine [Tylenol 1 tab PO Q6H PRN #12 tab 06/29/20 Unknown Rx /Codeine # 3 tab] Allergies Allergy/AdvReac Type Severity Reaction Status Date / Time No Known Allergies Allergy Verified 07/06/14 09:55 Heart Score - HEART Score History: Slightly suspicious EKG: Non-specific Age: 45-65 Risk factors: > 3 risk factors or hx of atherosclerotic disease Troponin: < normal limit HEART Score: 4 ED Review of Systems ROS: Stated complaint: CHEST PAIN Other details as noted in HPI Comment: All other systems reviewed and negative Constitutional: denies: fever, malaise Respiratory: denies: cough, shortness of breath Cardiovascular: chest pain Gastrointestinal: denies: abdominal pain, nausea, vomiting ED Past Medical Hx - Past Medical History Previous Medical History?: Yes Hx Hypertension: Yes Hx CVA: Yes (2015, no deficits) Hx Heart Attack/AMI: Yes Hx Congestive Heart Failure: Yes Hx Diabetes: No Hx Renal Disease: No Hx Asthma: No Hx COPD: No Additional medical history: CVD. High cholestrol - Surgical History Past Surgical History?: Yes Hx Coronary Stent: Yes (x1) Hx Pacemaker: Yes Hx Internal Defibrillator: Yes Additional Surgical History: stent x 1, placed in 2008. Defribrilator - Social History Smoking Status: Never Smoker Substance Use Type: Alcohol - Medications Home Medications: Home Medications Medication Instructions Recorded Confirmed Last Taken Type Clopidogrel Bisulfate [Plavix] 75 mg PO DAILY 02/23/14 10/03/19 10/02/19 History Folic Acid [Folvite] 1 mg PO QDAY #30 tablet 07/27/15 10/03/19 10/02/19 Rx Carvedilol [Coreg] 25 mg PO BID 02/23/19 10/03/19 10/02/19 History Potassium Chloride 20 meq PO QID 02/23/19 10/03/19 10/02/19 History metOLazone [Metolazone] 2.5 mg PO QDAY 02/23/19 10/03/19 10/02/19 History lisinopriL [Zestril TAB] 5 mg PO QDAY #30 tablet 02/24/19 10/03/19 10/02/19 Rx Ondansetron [Zofran ODT TAB] 4 mg PO Q6H PRN #30 tab.rapdis 09/30/19 10/03/19 10/02/19 Rx Docusate Sodium [Colace CAP] 100 mg PO BID #30 capsule 10/04/19 Unknown Rx Furosemide [Lasix] 20 mg PO QDAY #30 tablet 10/04/19 Unknown Rx Melatonin [Melatonin 10MG CAP] 10 mg PO QHS #30 capsule 10/04/19 Unknown Rx bisacodyL [Dulcolax suppos] 10 mg [place] QDAY PRN #30 supp.rect 10/04/19 Unknown Rx Acetaminophen/Codeine [Tylenol 1 tab PO Q6H PRN #12 tab 06/29/20 Unknown Rx /Codeine # 3 tab] ED Physical Exam - General Limitations: No Limitations ED Course Vital Signs 07/09/20 07/09/20 01:15 01:48 Temperature 98.7 F Pulse Rate 80 Respiratory 14 18 Rate Blood Pressure 106/76 Blood Pressure 106/76 [Left] O2 Sat by Pulse 98 Oximetry TIKA score - Tika Score Age > 65: (0) No Aspirin use within the Past 7 Days: (1) Yes 3 or more CAD Risk Factors: (1) Yes 2 or more Angina events in past 24 hrs: (0) No Known CAD with more than 50% Stenosis: (1) Yes Elevated Cardiac Markers: (0) No ST Deviation Greater than 0.5mm: (0) No TIKA Score: 3 ED Medical Decision Making - Lab Data Result diagrams: 07/09/20 01:33 07/09/20 01:33 - EKG Data -: EKG Interpreted by Me - EKG Data 07/09/20 01:58 EKG obtained 0155 Normal sinus rhythm rate 80 bpm normal axis normal intervals nonspecific T wave pattern no ST elevation Q waves in the anterior leads EKG is unchanged from previous EKG obtained 06/28/2020 07/09/20 02:40 - Radiology Data Radiology results: report reviewed Chest radiograph: No acute findings - Medical Decision Making Ms. Guadalupe has history of CVA, coronary artery disease, CO chest pain concerning for acute coronary syndrome. Admitted to the hospitalist service. I did consider other emergent causes of chest pain including pulmonary embolism, aortic dissection, pneumothorax, pericardial tamponade. After work-up evaluation emergency department, I do not feel that her chest pain is caused by any of these etiologies. Patient is admitted to hospital service Critical care attestation.: If time is entered above; I have spent that time in minutes in the direct care of this critically ill patient, excluding procedure time. ED Disposition Clinical Impression: History of acute myocardial infarction, CAD (coronary artery disease), Chest pain Disposition: OP ADMIT IP TO THIS HOSP Is pt being admited?: Yes Does the pt Need Aspirin: No Condition: Stable
--- NOTE | 2020-07-09 01:51 | XRay Report ---
CHEST 1 VIEW, 07/09/2020 129 AM CLINICAL INFORMATION/INDICATION: Chest pain COMPARISON: Chest radiograph, 06/29/2020 at 12:04 AM FINDINGS: SUPPORT DEVICES: Cardiac pacing device projects in stable position. HEART: The cardiac silhouette is normal in size. LUNGS/PLEURA: The lungs are clear of focal airspace disease or significant pleural effusion. ADDITIONAL FINDINGS: No additional acute findings. IMPRESSION: 1. No evidence of acute cardiopulmonary process. Signer Name: Jacquie Anne MD Signed: 07/09/2020 1:47 AM Workstation Name: [id number]
[2020-07-09 02:14] LABS: Basophils % (Auto) 0.3 % (0.0-1.8); Eosinophils % (Auto) 0.7 % (0.0-4.3); Hematocrit 36.8 % (30.3-42.9); Hemoglobin 12.9 gm/dl (10.1-14.3); Lymphocytes % (Auto) 34.2 % (13.4-35.0); Mean Corpuscular HGB Conc 35 % (30-34); Mean Corpuscular Volume 96 fl (79-97); Monocytes # (Auto) 0.4 K/mm3 (0.0-0.8); Monocytes % (Auto) 7.7 % (0.0-7.3); Platelet Count 214 K/mm3 (140-440); Red Blood Count 3.85 M/mm3 (3.65-5.03); Red Cell Distribution Width 13.1 % (13.2-15.2)
[2020-07-09 02:24] LABS: Blood Urea Nitrogen 9 mg/dL (7-17); Calcium 9.3 mg/dL (8.4-10.2); Hemolysis Index 5
[2020-07-09 02:26] LABS: BUN/Creatinine Ratio 13
[2020-07-09] MEDS ORDERED: MORPHINE 2 MG/1 ML INJ IV ONE (04:18)
[2020-07-09] MEDS ORDERED: MORPHINE 2 MG/1 ML INJ ONE (04:21)
[2020-07-09] MEDS ORDERED: MAGNESIUM HYDROXIDE (MOM) ORAL LIQD UDC PO PRN (05:07)
[2020-07-09] MEDS ORDERED: hydrALAZINE 20 MG/1 ML INJ IV PRN (05:07)
[2020-07-09] MEDS ORDERED: ACETAMINOPHEN 325 MG TAB PO PRN (05:07)
[2020-07-09] MEDS ORDERED: MORPHINE 2 MG/1 ML INJ IV PRN (05:07)
[2020-07-09] MEDS ORDERED: ONDANSETRON 4 MG/2 ML INJ IV PRN (05:07)
[2020-07-09] MEDS ORDERED: NITROGLYCERIN 0.4 MG TAB SUBL SL PRN ×2 (05:07→05:35)
--- NOTE | 2020-07-09 05:20 | History and Physical Report ---
History of Present Illness Date of examination: 07/09/20 Date of admission: 07/09/20 02:41 Chief complaint: Chest Pain History of present illness: Patient is a 50-year-old -[place] female with known history of CVA, CHF with ejection fraction of 15%, history of OH with stent placement in the past, hypertension, hyperlipidemia and GERD presenting to the emergency room today complaining of chest pain. Chest pain is said to be left-sided and left radiating into the left shoulder and left upper extremity. Pain is said to be sharp and is about 10/10 in severity. There was no known relieving or exacerbating factor. Pain is said to have been ongoing throughout the day. Patient denies any fever or chills, no headache or dizziness, no diaphoresis, she had some nausea but no vomiting, no abdominal pain, no diarrhea, no hematuria or dysuria. Patient was given some sublingual nitroglycerin with improvement in her chest pain. She has an AICD in place. She follows up with her radio installer automobile- Dr. Teixeira Past History Past Medical History: CAD (H/O [place] in the past), GERD, heart failure (EF 15%), hypertension, stroke Past Surgical History: Other (Pacemaker,Defibrillator placement) Social history: no significant social history Family history: diabetes (In parents) Medications and Allergies Allergies Allergy/AdvReac Type Severity Reaction Status Date / Time No Known Allergies Allergy Verified 07/06/14 09:55 Home Medications Medication Instructions Recorded Confirmed Last Taken Type Clopidogrel Bisulfate [Plavix] 75 mg PO DAILY 02/23/14 07/09/20 1 Day Ago History ~07/08/20 Folic Acid [Folvite] 1 mg PO QDAY #30 tablet 07/27/15 07/09/20 1 Day Ago Rx ~07/08/20 Carvedilol [Coreg] 25 mg PO BID 02/23/19 07/09/20 1 Day Ago History ~07/08/20 Potassium Chloride 20 meq PO QID 02/23/19 07/09/20 1 Day Ago History ~07/08/20 metOLazone [Metolazone] 2.5 mg PO QDAY 02/23/19 07/09/20 1 Day Ago History ~07/08/20 lisinopriL [Zestril TAB] 5 mg PO QDAY #30 tablet 02/24/19 07/09/20 1 Day Ago Rx ~07/08/20 Ondansetron [Zofran ODT TAB] 4 mg PO Q6H PRN #30 tab.rapdis 09/30/19 07/09/20 1 Day Ago Rx ~07/08/20 Furosemide [Lasix TAB] 20 mg PO QDAY #30 tablet 10/04/19 07/09/20 1 Day Ago Rx ~07/08/20 bisacodyL [Dulcolax suppos] 10 mg [place] QDAY PRN #30 supp.rect 10/04/19 07/09/20 1 Day Ago Rx ~07/08/20 Aspirin EC [Ecotrin] 325 mg PO QDAY tablet 07/09/20 Unknown Rx Docusate Sodium [Colace CAP] 100 mg PO BID capsule 07/09/20 Unknown Rx Isosorbide Dinitrate [Isordil] 20 mg PO BID tablet 07/09/20 Unknown Rx Nitroglycerin [Nitrostat] 0.4 mg SL BID PRN 07/09/20 07/09/20 1 Day Ago History ~07/08/20 Potassium Chloride [K-Dur] 20 meq PO QAM tablet 07/09/20 Unknown Rx Active Meds: Active Medications Acetaminophen (Tylenol) 650 mg PO Q4H PRN PRN Reason: Pain MILD(1-3)/Fever >100.5/MORAES Aspirin (Ecotrin) 325 mg PO QDAY RUBEN Hydralazine HCl (Apresoline) 10 mg IV Q6HR PRN PRN Reason: FOR SBP > target Magnesium Hydroxide (Milk Of Magnesia) 30 ml PO Q4H PRN PRN Reason: Constipation Morphine Sulfate (Morphine) 2 mg IV Q5MIN PRN PRN Reason: Chest Pain unrelieved by NTG Nitroglycerin (Nitrostat) 0.4 mg SL Q5M PRN PRN Reason: Chest Pain Ondansetron HCl (Zofran) 4 mg IV Q8H PRN PRN Reason: Nausea And Vomiting Sodium Chloride (Sodium Chloride Flush Syringe 10 Ml) 10 ml IV PRN PRN PRN Reason: LINE FLUSH Sodium Chloride (Sodium Chloride Flush Syringe 10 Ml) 10 ml IV BID RUBEN Sodium Chloride (Sodium Chloride Flush Syringe 10 Ml) 10 ml IV PRN PRN PRN Reason: LINE FLUSH Review of Systems Constitutional: no fever, no chills Ears, nose, mouth and throat: no nasal congestion, no sore throat Cardiovascular: chest pain, no palpitations Respiratory: no cough, no shortness of breath Gastrointestinal: nausea, no abdominal pain, no vomiting, no diarrhea Genitourinary Female: no flank pain, no dysuria, no hematuria Musculoskeletal: no neck pain, no low back pain Integumentary: no rash, no pruritis Neurological: no headaches, no confusion Exam - Constitutional Vitals: Temp Pulse Resp BP Pulse Ox 98.7 F 81 18 107/63 97 07/09/20 01:15 07/09/20 04:15 07/09/20 04:22 07/09/20 04:15 07/09/20 04:15 General appearance: Present: no acute distress, well-nourished, obese - EENT Eyes: Present: PERRL, EOM intact. Absent: scleral icterus ENT: hearing intact, clear oral mucosa, dentition normal - Neck Neck: Present: supple, normal ROM - Respiratory Respiratory effort: normal Respiratory: bilateral: CTA - Cardiovascular Rhythm: regular Heart Sounds: Present: S1 & S2. Absent: gallop, systolic murmur, diastolic murmur, rub - Extremities Extremities: no ischemia, pulses intact, pulses symmetrical, No edema, Full ROM Peripheral Pulses: within normal limits - Abdominal General gastrointestinal: Present: soft, non-tender, normal bowel sounds. Absent: mass - Integumentary Integumentary: Present: clear, warm, dry. Absent: rash - Musculoskeletal Musculoskeletal: strength equal bilaterally - Psychiatric Psychiatric: appropriate mood/affect, intact judgment & insight, memory intact, cooperative - Neurologic Neurologic: CNII-XII intact, no focal deficits, moves all extremities HEART Score - HEART Score EKG: Non-specific Age: 45-65 Risk factors: > 3 risk factors or hx of atherosclerotic disease Troponin: Troponin T < 0.010 ng/mL (0.00-0.029) 07/09/20 01:33 Troponin: < normal limit Results - Labs CBC & Chem 7: 07/09/20 10:20 07/09/20 10:20 Labs: Abnormal lab results 07/09/20 07/09/20 Range/Units 01:33 01:33 MCH 34 H (28-32) pg MCHC 35 H (30-34) % RDW 13.1 L (13.2-15.2) % Stanton % (Auto) 7.7 H (0.0-7.3) % Sodium 136 L (137-145) mmol/L Carbon Dioxide 19 L (22-30) mmol/L Glucose 104 H (65-100) mg/dL Assessment and Plan - Patient Problems (1) Chest pain Status: Acute Qualifiers: Chest pain type: unspecified Qualified Code(s): R07.9 - Chest pain, unspecified Plan to address problem: Patient admitted and placed on telemetry. Will check serial cardiac enzymes. Patient placed on aspirin, sublingual nitroglycerin and IV morphine as needed for chest pain. We will schedule for stress test. (2) HTN (hypertension) Status: Acute Qualifiers: Hypertension type: essential hypertension Qualified Code(s): I10 - Essential (primary) hypertension Plan to address problem: Blood pressure stable. We will resume routine home medications and monitor vital signs closely. (3) Hyperlipidemia Status: Chronic Plan to address problem: We will monitor lipid profile and continue routine home medications. (4) DVT prophylaxis Status: Acute Plan to address problem: Patient placed on subcutaneous heparin. (5) Full code status Status: Acute
[2020-07-09] MEDS ORDERED: ONDANSETRON 4 MG ODT TAB PO PRN (05:35)
[2020-07-09] MEDS ORDERED: ISOSORBIDE DINITRATE 20 MG TAB PO SCH (10:00)
[2020-07-09] MEDS ORDERED: DOCUSATE SODIUM 100 MG CAP PO SCH (10:00)
[2020-07-09] MEDS ORDERED: LISINOPRIL 5 MG TAB PO SCH (10:00)
[2020-07-09] MEDS ORDERED: metOLazone 2.5 MG TAB PO SCH (10:00)
[2020-07-09] MEDS ORDERED: carvediloL 25 MG TAB PO SCH (10:00)
[2020-07-09] MEDS ORDERED: CLOPIDOGREL 75 MG TAB PO SCH (10:00)
[2020-07-09] MEDS ORDERED: POTASSIUM CHLORIDE ER 20 MEQ TAB PO SCH (10:00)
[2020-07-09] MEDS ORDERED: FOLIC ACID 1 MG TAB PO SCH (10:00)
[2020-07-09] MEDS ORDERED: FUROSEMIDE 20 MG TAB PO SCH (10:00)
--- NOTE | 2020-07-09 10:09 | Consultation ---
History of Present Illness Consult date: 07/09/20 Requesting physician: YESENIA ROMEO Consult reason: chest pain History of present illness: The pt is a 49 YO female with a past medical history of HFrEF, ICMP, AICD in situ, CAD s/p PCI, HTN, HLP, obesity. She is followed in our office by Dr. ITZ Teixeira. Patient was last seen in the office on Friday. Denies any chest pain or shortness of breath palpitations on that visit. Patient states yesterday felt a squeezing in her heart lasting for a few seconds then resolved. Denies any syncope or palpitations. Patient's cardiac enzymes are negative. Patient denies any aggravating or relieving factors. Denies any pain like she had prior to her heart attack. Patient denies any fever chills nausea vomiting or syncope. Has a functioning AICD. LHC 02/2014 showed patent stent in prox LAD, catheter-induced spasm in the prox LAD resolved with intracoronary nitro, EF 15-20%. Echo done 03/2018 showed EF 25-30%, anterior wall, inferior wall and apex severely hypokinetic, impaired relaxation, aortic root mildly dilated. Past History Past Medical History: CAD (H/O AR in the past), GERD, heart failure (EF 15%), hypertension, stroke Past Surgical History: Other (Pacemaker,Defibrillator placement) Social history: no significant social history Family history: diabetes (In parents) Medications and Allergies Allergies Allergy/AdvReac Type Severity Reaction Status Date / Time No Known Allergies Allergy Verified 07/06/14 09:55 Home Medications Medication Instructions Recorded Confirmed Last Taken Type Clopidogrel Bisulfate [Plavix] 75 mg PO DAILY 02/23/14 07/09/20 1 Day Ago History ~07/08/20 Folic Acid [Folvite] 1 mg PO QDAY #30 tablet 07/27/15 07/09/20 1 Day Ago Rx ~07/08/20 Carvedilol [Coreg] 25 mg PO BID 02/23/19 07/09/20 1 Day Ago History ~07/08/20 Potassium Chloride 20 meq PO QID 02/23/19 07/09/20 1 Day Ago History ~07/08/20 metOLazone [Metolazone] 2.5 mg PO QDAY 02/23/19 07/09/20 1 Day Ago History ~07/08/20 lisinopriL [Zestril TAB] 5 mg PO QDAY #30 tablet 02/24/19 07/09/20 1 Day Ago Rx ~07/08/20 Ondansetron [Zofran ODT TAB] 4 mg PO Q6H PRN #30 tab.rapdis 09/30/19 07/09/20 1 Day Ago Rx ~07/08/20 Docusate Sodium [Colace CAP] 100 mg PO BID #30 capsule 10/04/19 07/09/20 1 Day Ago Rx ~07/08/20 Furosemide [Lasix] 20 mg PO QDAY #30 tablet 10/04/19 07/09/20 1 Day Ago Rx ~07/08/20 bisacodyL [Dulcolax suppos] 10 mg [place] QDAY PRN #30 supp.rect 10/04/19 07/09/20 1 Day Ago Rx ~07/08/20 Isosorbide Dinitrate [Isordil] 20 mg PO BID 07/09/20 07/09/20 1 Day Ago History ~07/08/20 Nitroglycerin [Nitrostat] 0.4 mg SL BID PRN 07/09/20 07/09/20 1 Day Ago History ~07/08/20 Active Meds: Active Medications Acetaminophen (Tylenol) 650 mg PO Q4H PRN PRN Reason: Pain MILD(1-3)/Fever >100.5/MOARES Aspirin (Ecotrin) 325 mg PO QDAY RUBEN Bisacodyl (Dulcolax) 10 mg CO QDAY PRN PRN Reason: Constipation Carvedilol (Coreg) 25 mg PO BID RUBEN Clopidogrel Bisulfate (Plavix) 75 mg PO DAILY RUBEN Docusate Sodium (Colace) 100 mg PO BID RUBEN Folic Acid (Folvite) 1 mg PO QDAY RUBEN Furosemide (Lasix) 20 mg PO QDAY RUBEN Isosorbide Dinitrate (Isordil) 20 mg PO BID RUBEN Labetalol HCl (Labetalol) 20 mg IV Q6H PRN PRN Reason: HYPERTENSION Lisinopril (Zestril) 5 mg PO QDAY RUBEN Magnesium Hydroxide (Milk Of Magnesia) 30 ml PO Q4H PRN PRN Reason: Constipation Metolazone (Zaroxolyn) 2.5 mg PO QDAY RUBEN Morphine Sulfate (Morphine) 2 mg IV Q5MIN PRN PRN Reason: Chest Pain unrelieved by NTG Nitroglycerin (Nitrostat) 0.4 mg SL Q5M PRN PRN Reason: Chest Pain Nitroglycerin (Nitrostat) 0.4 mg SL Q5M PRN PRN Reason: Chest Pain Ondansetron HCl (Zofran) 4 mg IV Q8H PRN PRN Reason: Nausea And Vomiting Ondansetron HCl (Zofran Odt) 4 mg PO Q6H PRN PRN Reason: Nausea Potassium Chloride (K-Dur) 20 meq PO QAM RUBEN Sodium Chloride (Sodium Chloride Flush Syringe 10 Ml) 10 ml IV PRN PRN PRN Reason: LINE FLUSH Sodium Chloride (Sodium Chloride Flush Syringe 10 Ml) 10 ml IV BID RUBEN Sodium Chloride (Sodium Chloride Flush Syringe 10 Ml) 10 ml IV PRN PRN PRN Reason: LINE FLUSH Review of Systems All systems: negative (as per hpi) Physical Examination Vital Signs Temp Pulse Resp BP Pulse Ox 98.7 F 80 14 106/76 98 07/09/20 01:15 07/09/20 01:15 07/09/20 01:15 07/09/20 01:15 07/09/20 01:15 General appearance: no acute distress, well-nourished HEENT: Positive: PERRL, Mucus Membranes Moist Neck: Positive: neck supple, trachea midline Cardiac: Positive: Reg Rate and Rhythm, S1/S2. Negative: Audible Murmur Lungs: Positive: clear to auscultation, Normal Breath Sounds Neuro: Positive: Grossly Intact Abdomen: Positive: Soft, Active Bowel Sounds. Negative: Tender, Distended Female genitourinary: deferred Skin: Positive: Clear Incision: Cardiac Cath Site Musculoskeletal: No Pain, Normal Range of Motion Extremities: Present: normal. Absent: edema Results 07/09/20 01:33 07/09/20 01:33 CBC 07/09/20 Range/Units 01:33 WBC 5.7 (4.5-11.0) K/mm3 RBC 3.85 (3.65-5.03) M/mm3 Hgb 12.9 (10.1-14.3) gm/dl Hct 36.8 (30.3-42.9) % Plt Count 214 (140-440) K/mm3 Lymph # 2.0 (1.2-5.4) K/mm3 [place] # 0.4 (0.0-0.8) K/mm3 Eos # 0.0 (0.0-0.4) K/mm3 Baso # 0.0 (0.0-0.1) K/mm3 Comprehensive Metabolic Panel 07/09/20 Range/Units 01:33 Sodium 136 L (137-145) mmol/L Potassium 3.6 (3.6-5.0) mmol/L Chloride 102.8 (98-107) mmol/L Carbon Dioxide 19 L (22-30) mmol/L BUN 9 (7-17) mg/dL Creatinine 0.7 (0.6-1.2) mg/dL Glucose 104 H (65-100) mg/dL Calcium 9.3 (8.4-10.2) mg/dL - Imaging and Cardiology Echo: report reviewed (Mod severe LV dysfunction anterior anterior septal akinesis EF 20% no change 07/09/2020 ) EKG interpretations - Telemetry EKG Rhythm: Sinus Rhythm - EKG Sinus rhythms and dysrhythmias: sinus rhythm (Sinus rhythm old anterior septal wall AR) Assessment and Plan 50-year-old female with ischemic cardiomyopathy functioning AICD negative cardiac enzymes patient's presentation is atypical in nature not exertional. Is able to walk around without issue has been walking around in the hallways without issue. 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-up with Dr. itz teixeira in 1-2 weeks. No change in echocardiogram done today. 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 return back if chest pain reoccurs patient's cardiac catheterization revealed patent LAD stent - Patient Problems (1) Chest pain Current Visit: Yes Status: Acute Qualifiers: Chest pain type: unspecified Qualified Code(s): R07.9 - Chest pain, unspecified (2) CAD (coronary artery disease) Current Visit: Yes Status: Chronic Qualifiers: Coronary Disease-Associated Artery/Lesion type: ruby artery Associated angina: without angina (3) History of acute myocardial infarction Current Visit: Yes Status: Chronic (4) HTN (hypertension) Current Visit: No Status: Acute Qualifiers: Hypertension type: essential hypertension Qualified Code(s): I10 - Essential (primary) hypertension (5) AICD (automatic cardioverter/defibrillator) present Current Visit: No Status: Chronic (6) Chronic systolic CHF (congestive heart failure) Current Visit: No Status: Chronic (7) HLD (hyperlipidemia) Current Visit: No Status: Chronic Qualifiers: Hyperlipidemia type: mixed hyperlipidemia Qualified Code(s): E78.2 - Mixed hyperlipidemia (8) History of PTCA Current Visit: No Status: Chronic (9) Ischemic cardiomyopathy Current Visit: No Status: Chronic
[2020-07-09 10:42] LABS: Hematocrit 41.6 % (30.3-42.9); Hemoglobin 14.2 gm/dl (10.1-14.3); Mean Corpuscular HGB Conc 34 % (30-34); Mean Corpuscular Volume 97 fl (79-97); Platelet Count 205 K/mm3 (140-440)
[2020-07-09 10:58] LABS: Blood Urea Nitrogen 8 mg/dL (7-17); Calcium 9.5 mg/dL (8.4-10.2); Chol/HDL Ratio 2.44 %; HDL Cholesterol 49 mg/dL (40-59); Hemolysis Index 37; LDL Cholesterol,Direct 66 mg/dL (50-130)
[2020-07-09 11:01] LABS: BUN/Creatinine Ratio 11
[2020-07-09 14:47] VITALS: BP 135/77
--- NOTE | 2020-07-09 17:07 | Discharge Summary ---
Providers - Providers Date of Admission: 07/09/20 02:41 Date of discharge: 07/09/20 Attending physician: YESENIA ROMEO 07/09/20 Consult to Cardiac Rehabilitation [CONS] Routine Reason For Exam: Phase I 07/09/20 05:08 Consult to Cardiology [CONS] Routine Consulting Provider: JOSE L FREY Reason For Exam: chest pain Primary care physician: IDEA MAN Hospitalization Condition: Stable Hospital course: 63-year-old male with history of hypertension, seizure disorder, history of CVA with right-sided weakness presenting with a 2-day history of generalized weakness and fever. He denies any chest pain or shortness of breath, no nausea vomiting, no hematuria or dysuria. He has had some abdominal pain especially in the lower abdomen. Patient was brought in by EMS from longterm where he resides. He denies any sick contacts. Patient denies any recent travel and denies any exposure to anyone with COVID-19. Work-up in the emergency room including CT of the abdomen and pelvis reveals possible infectious process in the right lung base. --Chest pain Current Visit: Yes Status: Acute Plan to address problem: Troponin is negative Echocardiogram no change from the previous echocardiogram CHF exacerbation Has a functioning AICD. EF is 15 to 25% good exercise tolerance Patient walking normally HTN (hypertension) Current Visit: No Status: Acute Qualifiers: Hypertension type: essential hypertension Qualified Code(s): I10 - Essential (primary) hypertension Plan to address problem: Blood pressure stable. We will resume routine home medications and monitor vital signs closely. Hyperlipidemia Current Visit: No Status: Chronic Plan to address problem: We will monitor lipid profile and continue routine home medications. Patient to be discharged on same medications. Cleared by cardiology patient to follow-up with Dr. SRINI Frey Disposition: DC-01 TO HOME OR SELFCARE - Discharge Diagnoses (1) Chest pain Status: Acute Qualifiers: Chest pain type: unspecified Qualified Code(s): R07.9 - Chest pain, unspecified (2) Full code status Status: Acute (3) CAD (coronary artery disease) Status: Chronic Qualifiers: Coronary Disease-Associated Artery/Lesion type: [place] artery Associated angina: without angina (4) CHF (congestive heart failure) Status: Acute Qualifiers: Heart failure type: combined systolic and diastolic Heart failure chronicity: acute on chronic Qualified Code(s): I50.43 - Acute on chronic combined systolic (congestive) and diastolic (congestive) heart failure (5) DVT prophylaxis Status: Acute Core Measure Documentation - Palliative Care Palliative Care/ Comfort Measures: Not Applicable - Core Measures Any of the following diagnoses?: none Exam - Constitutional Vitals: Temp Pulse Resp BP Pulse Ox 97.4 F L 84 16 135/77 98 07/09/20 11:49 07/09/20 15:20 07/09/20 13:00 07/09/20 11:49 07/09/20 13:00 General appearance: Present: no acute distress, well-nourished - EENT Eyes: Present: PERRL ENT: hearing intact, clear oral mucosa - Neck Neck: Present: supple, normal ROM - Respiratory Respiratory effort: normal Respiratory: bilateral: CTA - Cardiovascular Heart rate: 78 Rhythm: regular Heart Sounds: Present: S1 & S2. Absent: rub, click - Extremities Extremities: pulses symmetrical, No edema Peripheral Pulses: within normal limits - Abdominal General gastrointestinal: Present: soft, non-tender, non-distended, normal bowel sounds Female genitourinary: Present: normal - Integumentary Integumentary: Present: clear, warm, dry - Musculoskeletal Musculoskeletal: gait normal, strength equal bilaterally - Psychiatric Psychiatric: appropriate mood/affect, intact judgment & insight - Neurologic Neurologic: CNII-XII intact, moves all extremities Plan Activity: no restrictions, advance as tolerated Diet: low cholesterol, low salt Follow up with: MARISEL CARTWRIGHT MD [Primary Care Provider] - 3-5 Days MARCO FREY MD [Staff Physician] - 7 Days
[2020-07-10] MEDS ORDERED: ASPIRIN EC 325 MG TAB PO SCH (10:00)
== END 2020-07-09 18:00 | disposition home or self-care (01) ==
LOC: ED 00:56 → 4A 02:41
PROVIDERS: ADMIT Internal Medicine Geriatric Medicine; ATTEND Internal Medicine
DX: I25.10 Atherosclerotic heart disease of native coronary artery without angina pectoris (principal); R07.89 Other chest pain; I11.0 Hypertensive heart disease with heart failure; I50.9 Heart failure, unspecified; K21.9 Gastro-esophageal reflux disease without esophagitis; I25.2 Old myocardial infarction; I25.5 Ischemic cardiomyopathy; E78.5 Hyperlipidemia, unspecified; Z86.73 Personal history of transient ischemic attack (TIA), and cerebral infarction without residual deficits; Z95.0 Presence of cardiac pacemaker; Z79.02 Long term (current) use of antithrombotics/antiplatelets; Z79.82 Long term (current) use of aspirin; Z95.1 Presence of aortocoronary bypass graft
CPT/HCPCS: 36415; 71045; 80048; 80061; 84484; 85025; 93005; 93306; 96374; 96375; 96376; 99285; G0378; J2270; J2405

== ENCOUNTER 2020-07-12 07:00 | Observation (INO) | payer MEDICAID ==
[2020-07-12] MEDS ORDERED: METOCLOPRAMIDE 10 MG/2 ML INJ IV ONE ×2 (10:48→12:03)
[2020-07-12] MEDS ORDERED: SUCRALFATE 1 GM/10 ML ORAL LIQD PO ONE (10:48)
[2020-07-12] MEDS ORDERED: FAMOTIDINE 20 MG/2 ML INJ IV ONE (10:48)
[2020-07-12] MEDS ORDERED: LACTATED RINGERS 500 ML IV ONE (10:49)
--- NOTE | 2020-07-12 10:51 | Emergency Department Report ---
ED General Adult HPI - General Chief complaint: Abdominal Pain Stated complaint: GEN BODY PAIN PUI?: No Time Seen by Provider: 07/12/20 10:41 Source: patient, RN notes reviewed, old records reviewed Mode of arrival: Stretcher Limitations: No Limitations - History of Present Illness Initial comments: The patient was evaluated in the emergency department for symptoms described in the history of present illness. He/she was evaluated in the context of the global COVID-19 pandemic, which necessitated consideration that the patient might be at risk for infection with the virus that causes COVID-19. Institutional protocols and algorithms that pertain to the evaluation of patients at risk for COVID-19 are in a state of rapid change based on information released by regulatory bodies including the CDC and federal and state organizations. These policies and algorithms were followed during the patient's care in the emergency department. Please note that these policies, procedures and recommendations changed on a rapid basis. Cardiology: Dr. SRINI Teixeira/ [facility] cardiology Past medical history: Congestive heart failure, ischemic cardiomyopathy, ICD in situ, heart disease, status post PCI, hypertension, obesity, hyperlipidemia, and cannabis use. She had a left heart cath performed in 2013, which showed a patent stent in the proximal LAD, catheter induced spasm in the proximal LAD, which resolved with intracoronary nitroglycerin, ejection fraction 15 to 20%, had an echocardiogram performed March 2018, which showed ejection fraction 25 to 30%, with inferior and apex is severely hypokinetic, with impaired relaxation. She is also been evaluated in this hospital in the past for abdominal pain, in the context of negative CT scan imaging, gastroenterology opined and September 2019 that the patient likely had a component of cannabinoid hyperemesis syndrome. As per discussion with cardiology on-call, Maira Nguyen, working with the aforementioned cardiology group, the patient had an outpatient echocardiogram recently, which demonstrated an LV thrombus. This is a new finding. Today, the patient presents to the ER with a complaint of central and left-sided chest wall pain, nausea vomiting, abdominal pain, and "cramping." She denies DVT and pulmonary embolism risk factors. Chest wall pain is sharp, throbbing and aching, does not radiate anywhere, increases with palpation and decreases with rest. Abdominal cramping is diffuse. No headache or neck pain. No hematemesis or bright red blood per rectum. No irritative urinary symptoms. No focal extremity weakness and or numbness. She endorses compliance with her medications. She is still recreationally consuming marijuana. She is not homicidal or suicidal. -: Gradual, hour(s), days(s) Location: chest Radiation: abdomen Consistency: constant Improves with: rest Worsens with: eating, movement - Related Data Home Medications Medication Instructions Recorded Confirmed Last Taken Clopidogrel Bisulfate [Plavix] 75 mg PO DAILY 02/23/14 07/09/20 1 Day Ago ~07/08/20 Carvedilol [Coreg] 25 mg PO BID 02/23/19 07/09/20 1 Day Ago ~07/08/20 Potassium Chloride 20 meq PO QID 02/23/19 07/09/20 1 Day Ago ~07/08/20 metOLazone [Metolazone] 2.5 mg PO QDAY 02/23/19 07/09/20 1 Day Ago ~07/08/20 Nitroglycerin [Nitrostat] 0.4 mg SL BID PRN 07/09/20 07/09/20 1 Day Ago ~07/08/20 Previous Rx's Medication Instructions Recorded Last Taken Type Folic Acid [Folvite] 1 mg PO QDAY #30 tablet 07/27/15 1 Day Ago Rx ~07/08/20 lisinopriL [Zestril TAB] 5 mg PO QDAY #30 tablet 02/24/19 1 Day Ago Rx ~07/08/20 Ondansetron [Zofran ODT TAB] 4 mg PO Q6H PRN #30 tab.rapdis 09/30/19 1 Day Ago Rx ~07/08/20 Furosemide [Lasix TAB] 20 mg PO QDAY #30 tablet 10/04/19 1 Day Ago Rx ~07/08/20 bisacodyL [Dulcolax suppos] 10 mg NH QDAY PRN #30 supp.rect 10/04/19 1 Day Ago Rx ~07/08/20 Aspirin EC [Ecotrin] 325 mg PO QDAY tablet 07/09/20 Unknown Rx Docusate Sodium [Colace CAP] 100 mg PO BID capsule 07/09/20 Unknown Rx Isosorbide Dinitrate [Isordil] 20 mg PO BID tablet 07/09/20 Unknown Rx Potassium Chloride [K-Dur] 20 meq PO QAM tablet 07/09/20 Unknown Rx Allergies Allergy/AdvReac Type Severity Reaction Status Date / Time No Known Allergies Allergy Verified 07/06/14 09:55 ED Review of Systems ROS: Stated complaint: GEN BODY PAIN Other details as noted in HPI Constitutional: malaise, weakness. denies: fever Eyes: denies: eye discharge ENT: denies: congestion Respiratory: shortness of breath (Chronic shortness of breath) Cardiovascular: chest pain Gastrointestinal: abdominal pain, nausea, vomiting. denies: hematemesis, melena, hematochezia Genitourinary: denies: dysuria Musculoskeletal: denies: back pain Neurological: weakness Psychiatric: depression Hematological/Lymphatic: denies: easy bleeding ED Past Medical Hx - Past Medical History Hx Hypertension: Yes Hx CVA: Yes (2015, no deficits) Hx Heart Attack/AMI: Yes Hx Congestive Heart Failure: Yes Hx Diabetes: No Hx Renal Disease: No Hx Asthma: No Hx COPD: No Additional medical history: CVD. High cholestrol - Surgical History Hx Coronary Stent: Yes (x1) Hx Pacemaker: Yes Hx Internal Defibrillator: Yes Additional Surgical History: stent x 1, placed in 2008. Defribrilator - Social History Smoking Status: Never Smoker Substance Use Type: Alcohol - Medications Home Medications: Home Medications Medication Instructions Recorded Confirmed Last Taken Type Clopidogrel Bisulfate [Plavix] 75 mg PO DAILY 02/23/14 07/09/20 1 Day Ago History ~07/08/20 Folic Acid [Folvite] 1 mg PO QDAY #30 tablet 07/27/15 07/09/20 1 Day Ago Rx ~07/08/20 Carvedilol [Coreg] 25 mg PO BID 02/23/19 07/09/20 1 Day Ago History ~07/08/20 Potassium Chloride 20 meq PO QID 02/23/19 07/09/20 1 Day Ago History ~07/08/20 metOLazone [Metolazone] 2.5 mg PO QDAY 02/23/19 07/09/20 1 Day Ago History ~07/08/20 lisinopriL [Zestril TAB] 5 mg PO QDAY #30 tablet 02/24/19 07/09/20 1 Day Ago Rx ~07/08/20 Ondansetron [Zofran ODT TAB] 4 mg PO Q6H PRN #30 tab.rapdis 09/30/19 07/09/20 1 Day Ago Rx ~07/08/20 Furosemide [Lasix TAB] 20 mg PO QDAY #30 tablet 10/04/19 07/09/20 1 Day Ago Rx ~07/08/20 bisacodyL [Dulcolax suppos] 10 mg NH QDAY PRN #30 supp.rect 10/04/19 07/09/20 1 Day Ago Rx ~07/08/20 Aspirin EC [Ecotrin] 325 mg PO QDAY tablet 07/09/20 Unknown Rx Docusate Sodium [Colace CAP] 100 mg PO BID capsule 07/09/20 Unknown Rx Isosorbide Dinitrate [Isordil] 20 mg PO BID tablet 07/09/20 Unknown Rx Nitroglycerin [Nitrostat] 0.4 mg SL BID PRN 07/09/20 07/09/20 1 Day Ago History ~07/08/20 Potassium Chloride [K-Dur] 20 meq PO QAM tablet 07/09/20 Unknown Rx ED Physical Exam - General Limitations: No Limitations, Other (Chaperoned by nurse Leanna Hurst) General appearance: alert, anxious, in distress, obese - Head Head exam: Present: atraumatic, normocephalic - Eye Eye exam: Present: normal appearance, EOMI. Absent: nystagmus - ENT ENT exam: Present: normal exam, normal orophraynx, mucous membranes moist, normal external ear exam - Neck Neck exam: Present: normal inspection, full ROM. Absent: tenderness, meningismus - Respiratory Respiratory exam: Present: normal lung sounds bilaterally, chest wall tenderness. Absent: respiratory distress, wheezes, rales, rhonchi, stridor - Cardiovascular Cardiovascular Exam: Present: normal rhythm, tachycardia, normal heart sounds. Absent: systolic murmur, diastolic murmur, rubs, gallop - GI/Abdominal GI/Abdominal exam: Present: soft. Absent: distended, tenderness, guarding, rebound, rigid, pulsatile mass - Extremities Exam Extremities exam: Present: normal inspection, full ROM, other (2+ pulses noted in the bilateral upper and lower extremities. There is no palpable cord. negative Homans sign. Muscular compartments are soft. The pelvis is stable.). Absent: pedal edema, calf tenderness - Back Exam Back exam: Present: normal inspection, full ROM. Absent: tenderness, CVA tenderness (R), CVA tenderness (L), paraspinal tenderness, vertebral tenderness - Neurological Exam Neurological exam: Present: alert, other (No facial droop. Tongue midline. Extraocular movements intact bilaterally. Facial sensation intact to light touch in V1, V2, V3 distribution bilaterally. 5 and a 5 strength in 4 extremities. Sensation intact to light touch in 4 extremities.). Absent: motor sensory deficit - Psychiatric Psychiatric exam: Present: anxious - Skin Skin exam: Present: warm, dry, intact, normal color. Absent: rash ED Course Vital Signs 07/12/20 07/12/20 07/12/20 07:12 10:40 11:26 Temperature 98.2 F Pulse Rate 103 H 86 Respiratory 18 18 18 Rate Blood Pressure 116/77 134/71 O2 Sat by Pulse 99 100 97 Oximetry 07/12/20 07/12/20 11:31 12:00 Temperature Pulse Rate 86 85 Respiratory 16 23 Rate Blood Pressure 139/83 127/86 O2 Sat by Pulse 100 99 Oximetry - Reevaluation(s) Reevaluation #1: 07/12/20 11:13 Differential diagnosis, including but not limited to: GERD, gastritis, hiatal hernia, pneumonia, costochondritis, coronary artery disease/acute coronary syndrome, cannabinoid hyperemesis syndrome, obstruction, AAA, renal colic, urinary tract infection Assessment and plan: 50-year-old female, who is afebrile with reassuring vital signs with exception of tachycardia, which is now resolved, with no DVT or pulmonary embolism risk factors, who is low risk by Wells criteria, who has a history of cannabis consumption, abdominal pain, with recurrent chest pain. Patient at moderate risk for major adverse cardiac event as per heart score. In addition, as per discussion with cardiology, she has a newly diagnosed LV thrombus. They have recommended admission for further management and evaluation. CT scan of the abdomen pelvis pending, although patient's abdominal symptomatology is most likely due to cannabinoid hyperemesis syndrome. Cardiology has recommended initiation of Eliquis, 5 mg twice daily, assuming CT scan of the abdomen pelvis shows no acute surgical pathology. Her EKG today has some abnormalities, including what appeared to be biphasic T waves in the anteroseptal leads, which appear to be more pronounced than on prior. We will treat with as needed nitro, initiate aspirin therapy, Eliquis therapy, fluids, obtain laboratory studies, and admit once initial data points have resulted. Reevaluation #2: 07/12/20 14:03 Laboratory studies suggest dehydration, metabolic acidosis, likely secondary to starvation/nausea/vomiting, likely secondary to cannabinoid hyperemesis syndrome. CT scan of the abdomen pelvis is negative for acute disease. Eliquis therapy has been ordered by cardiology. [facility] physician, Dr. Sales to admit ED Medical Decision Making - Lab Data Result diagrams: 07/12/20 11:33 07/12/20 12:37 Vital Signs 07/12/20 07:12 Temperature 98.2 F Pulse Rate 103 H Respiratory 18 Rate Blood Pressure 116/77 O2 Sat by Pulse 99 Oximetry Lab Results 07/12/20 07/12/20 07/12/20 Range/Units 11:33 11:33 11:33 Hgb 15.3 H (10.1-14.3) gm/dl Hct 43.2 H (30.3-42.9) % Plt Count 258 (140-440) K/mm3 PT 14.3 (12.2-14.9) Sec. INR 1.09 (0.87-1.13) Sodium (137-145) mmol/L Potassium (3.6-5.0) mmol/L Chloride (98-107) mmol/L Carbon Dioxide (22-30) mmol/L Anion Gap mmol/L BUN (7-17) mg/dL Creatinine (0.6-1.2) mg/dL Estimated GFR ml/min BUN/Creatinine Ratio % Glucose (65-100) mg/dL Calcium (8.4-10.2) mg/dL Magnesium (1.7-2.3) mg/dL Total Bilirubin (0.1-1.2) mg/dL AST (5-40) units/L ALT (7-56) units/L Alkaline Phosphatase (35-129) units/L Total Creatine Kinase (30-135) units/L Troponin T < 0.010 (0.00-0.029) ng/mL Total Protein (6.3-8.2) g/dL Albumin (3.9-5) g/dL Albumin/Globulin Ratio % Lipase (13-60) units/L 07/12/20 Range/Units 12:37 Hgb (10.1-14.3) gm/dl Hct (30.3-42.9) % Plt Count (140-440) K/mm3 PT (12.2-14.9) Sec. INR (0.87-1.13) Sodium 135 L (137-145) mmol/L Potassium 3.8 (3.6-5.0) mmol/L Chloride 94.9 L (98-107) mmol/L Carbon Dioxide 16 L (22-30) mmol/L Anion Gap 28 mmol/L BUN 16 (7-17) mg/dL Creatinine 0.9 (0.6-1.2) mg/dL Estimated GFR > 60 ml/min BUN/Creatinine Ratio 18 % Glucose 140 H (65-100) mg/dL Calcium 10.4 H (8.4-10.2) mg/dL Magnesium 2.20 (1.7-2.3) mg/dL Total Bilirubin 0.80 (0.1-1.2) mg/dL AST 15 (5-40) units/L ALT 8 (7-56) units/L Alkaline Phosphatase 87 (35-129) units/L Total Creatine Kinase 98 (30-135) units/L Troponin T < 0.010 (0.00-0.029) ng/mL Total Protein 8.3 H (6.3-8.2) g/dL Albumin 4.9 (3.9-5) g/dL Albumin/Globulin Ratio 1.4 % Lipase 16 (13-60) units/L Lab Results 07/12/20 07/12/20 07/12/20 Range/Units 11:33 11:33 11:33 Hgb 15.3 H (10.1-14.3) gm/dl Hct 43.2 H (30.3-42.9) % Plt Count 258 (140-440) K/mm3 PT 14.3 (12.2-14.9) Sec. INR 1.09 (0.87-1.13) Sodium (137-145) mmol/L Potassium (3.6-5.0) mmol/L Chloride (98-107) mmol/L Carbon Dioxide (22-30) mmol/L Anion Gap mmol/L BUN (7-17) mg/dL Creatinine (0.6-1.2) mg/dL Estimated GFR ml/min BUN/Creatinine Ratio % Glucose (65-100) mg/dL Calcium (8.4-10.2) mg/dL Magnesium (1.7-2.3) mg/dL Total Bilirubin (0.1-1.2) mg/dL AST (5-40) units/L ALT (7-56) units/L Alkaline Phosphatase (35-129) units/L Total Creatine Kinase (30-135) units/L Troponin T < 0.010 (0.00-0.029) ng/mL Total Protein (6.3-8.2) g/dL Albumin (3.9-5) g/dL Albumin/Globulin Ratio % Lipase (13-60) units/L 07/12/20 Range/Units 12:37 Hgb (10.1-14.3) gm/dl Hct (30.3-42.9) % Plt Count (140-440) K/mm3 PT (12.2-14.9) Sec. INR (0.87-1.13) Sodium 135 L (137-145) mmol/L Potassium 3.8 (3.6-5.0) mmol/L Chloride 94.9 L (98-107) mmol/L Carbon Dioxide 16 L (22-30) mmol/L Anion Gap 28 mmol/L BUN 16 (7-17) mg/dL Creatinine 0.9 (0.6-1.2) mg/dL Estimated GFR > 60 ml/min BUN/Creatinine Ratio 18 % Glucose 140 H (65-100) mg/dL Calcium 10.4 H (8.4-10.2) mg/dL Magnesium 2.20 (1.7-2.3) mg/dL Total Bilirubin 0.80 (0.1-1.2) mg/dL AST 15 (5-40) units/L ALT 8 (7-56) units/L Alkaline Phosphatase 87 (35-129) units/L Total Creatine Kinase 98 (30-135) units/L Troponin T < 0.010 (0.00-0.029) ng/mL Total Protein 8.3 H (6.3-8.2) g/dL Albumin 4.9 (3.9-5) g/dL Albumin/Globulin Ratio 1.4 % Lipase 16 (13-60) units/L - EKG Data -: EKG Interpreted by Vt - EKG Data 07/12/20 11:15 The EKG today shows a sinus rhythm, 75 bpm, left axis deviation, QTC 490 ms, poor R wave progression, T wave inversions V2, V3, V4, V5 and V6. The EKG is abnormal. The EKG is not a STEMI, biphasic T waves appear to be more pronounced than when compared to prior EKG. The EKG is not a STEMI - Radiology Data Radiology results: pending, report reviewed, image reviewed Print Report Referring Physician: JESU PAVON Patient Name: RAMSEY GUERRIER Date of : 1970 Sex: Female Report Date: 2020-07-12 Report Status: Finalized Findings [place] [id number] Cat Scan Report Signed Patient: RAMSEY GUERRIER MR #: [id number] : 1970 Acct:[id number] Age/Sex: 50 / F ADM Date: 07/12/20 Loc: ED Attending Dr: Ordering Physician: JESU PAVON MD Date of Service: 07/12/20 Procedure(s): CT abdomen pelvis wo con Accession Number(s): [id number] cc: JESU PAVON MD CT abdomen pelvis wo con INDICATION: n/v abd pain. TECHNIQUE: All CT scans at this location are performed using the following dose modulation technique: Automated exposure control. CONTRAST: None. COMPARISON: CT abdomen and pelvis 09/23/2019. CT ABDOMEN: The parenchymal organs are unremarkable in appearance other than benign-appearing hepatic cysts. Negative for abdominal mass, fluid or inflammation. The bowel is not dilated or thickened. CT PELVIS: Negative for mass, fluid or inflammation. The appendix is normal. IMPRESSION: Negative for obstruction or localized inflammation. Signer Name: Jakob Carter MD Signed: 07/12/2020 12:23 PM Workstation Name: [id number] Transcribed By: ES Dictated By: Jakob Carter MD Electronically Authenticated By: Jakob Carter MD Signed Date/Time: 07/12/20 1223 DD/ [id number] Print Report Referring Physician: JESU PAVON Patient Name: RAMSEY GUERRIER Date of : 1970 Sex: Female Report Date: 2020-07-12 Report Status: Finalized Findings [address] [address] XRay Report Signed Patient: RAMSEY GUERRIER MR #: [id number] : 1970 Acct:[id number] Age/Sex: 50 / F ADM Date: 07/12/20 Loc: ED Attending Dr: Ordering Physician: JESU PAVON MD Date of Service: 07/12/20 Procedure(s): XR chest 1V ap Accession Number(s): [id number] cc: JESU PAVON MD Fluoro Time In Minutes: CHEST 1 VIEW INDICATION: chest pain. COMPARISON: 07/09/2020 FINDINGS: Support devices: ICD remains in satisfactory position. Heart: Within normal limits. Lungs/Pleura: No acute air space or interstitial disease. Additional findings: None. IMPRESSION: No acute abnormality. Signer Name: Jakob Carter MD Signed: 07/12/2020 11:41 AM Workstation Name: [id number] Transcribed By: ES Dictated By: Jakob Carter MD Electronically Authenticated By: Jakob Carter MD Signed Date/Time: 07/12/20 1141 DD/ 1140 TD/TT: Critical care attestation.: If time is entered above; I have spent that time in minutes in the direct care of this critically ill patient, excluding procedure time. ED Disposition Clinical Impression: Ischemic cardiomyopathy, Acute abdominal pain, Cannabinoid hyperemesis syndrome, Acute chest pain Coronary artery disease Qualifiers: Coronary Disease-Associated Artery/Lesion type: unspecified vessel or lesion type [place] vs. transplanted heart: [place] heart Associated angina: with unspecified angina Qualified Code(s): I25.119 - Atherosclerotic heart disease of [place] coronary artery with unspecified angina pectoris Disposition: OP ADMIT IP TO THIS HOSP Is pt being admited?: Yes Does the pt Need Aspirin: Yes Condition: Good Referrals: PRIMARY CARE, [Primary Care Provider] - 3-5 Days
[2020-07-12] MEDS ORDERED: HALOPERIDOL LACTATE 5 MG/1 ML INJ IM STA (10:55)
[2020-07-12] MEDS ORDERED: NITROGLYCERIN 0.4 MG TAB SUBL SL PRN (11:12)
--- NOTE | 2020-07-12 11:45 | XRay Report ---
CHEST 1 VIEW INDICATION: chest pain. COMPARISON: 07/09/2020 FINDINGS: Support devices: ICD remains in satisfactory position. Heart: Within normal limits. Lungs/Pleura: No acute air space or interstitial disease. Additional findings: None. IMPRESSION: No acute abnormality. Signer Name: Jakob Carter MD Signed: 07/12/2020 11:41 AM Workstation Name: [email or web address]
[2020-07-12 11:53] LABS: Hematocrit 43.2 % (30.3-42.9); Hemoglobin 15.3 gm/dl (10.1-14.3)
[2020-07-12 12:04] LABS: INR 1.09 (0.87-1.13)
--- NOTE | 2020-07-12 12:27 | Cat Scan Report ---
CT abdomen pelvis wo con INDICATION: n/v abd pain. TECHNIQUE: All CT scans at this location are performed using the following dose modulation technique: Automated exposure control. CONTRAST: None. COMPARISON: CT abdomen and pelvis 09/23/2019. CT ABDOMEN: The parenchymal organs are unremarkable in appearance other than benign-appearing hepatic cysts. Negative for abdominal mass, fluid or inflammation. The bowel is not dilated or thickened. CT PELVIS: Negative for mass, fluid or inflammation. The appendix is normal. IMPRESSION: Negative for obstruction or localized inflammation. Signer Name: Jakob Carter MD Signed: 07/12/2020 12:23 PM Workstation Name: [id number]
--- NOTE | 2020-07-12 12:43 | Consultation ---
History of Present Illness Consult date: 07/12/20 Requesting physician: JESU PAVON Consult reason: chest pain, known to you History of present illness: The pt is a 50 [facility]O [facility] with a past medical history of HFrEF, ICMP, AICD in situ, CAD s/p PCI, HTN, HLP, CVA, seizure, obesity. She is followed in our office by Dr. SRINI Teixeira. She presented with c/o intractable nausea and vomiting which began yesterday morning. After she began vomiting, she noted the onset of generalized abdominal pain and chest pain. She is unable to provide any additional details at this time due to vomiting. Pt denies any SOB, palpitations, diaphoresis or syncope. Abdomen/pelvis CT with no acute findings. Of note, pt was discharged from [facility] on 07/09 following eval of chest pain. She was discharged to f/u in our office. Pt underwent tte on 02/10/2020 which showed EF 25-30%, LV mildly dilated, echo density suggestive of thrombus in LV apex - ? organized chronic thrombus, pacemaker wire in RA. Contrast study for further evaluation of probable apical thrombus was recommended. Pt was scheduled for OP tte with contrast and f/u with Dr. SRINI Teixeira next week. [facility] 02/2014 showed patent stent in prox LAD, catheter-induced spasm in the prox LAD resolved with intracoronary nitro, EF 15-20%. Medications and Allergies Allergies Allergy/AdvReac Type Severity Reaction Status Date / Time No Known Allergies Allergy Verified 07/06/14 09:55 Home Medications Medication Instructions Recorded Confirmed Last Taken Type Clopidogrel Bisulfate [Plavix] 75 mg PO DAILY 02/23/14 07/09/20 1 Day Ago History ~07/08/20 Folic Acid [Folvite] 1 mg PO QDAY #30 tablet 07/27/15 07/09/20 1 Day Ago Rx ~07/08/20 Carvedilol [Coreg] 25 mg PO BID 02/23/19 07/09/20 1 Day Ago History ~07/08/20 Potassium Chloride 20 meq PO QID 02/23/19 07/09/20 1 Day Ago History ~07/08/20 metOLazone [Metolazone] 2.5 mg PO QDAY 02/23/19 07/09/20 1 Day Ago History ~08/22/20 lisinopriL [Zestril TAB] 5 mg PO QDAY #30 tablet 02/24/19 07/09/20 1 Day Ago Rx ~07/08/20 Ondansetron [Zofran ODT TAB] 4 mg PO Q6H PRN #30 tab.rapdis 09/30/19 07/09/20 1 Day Ago Rx ~07/08/20 Furosemide [Lasix TAB] 20 mg PO QDAY #30 tablet 10/04/19 07/09/20 1 Day Ago Rx ~07/08/20 bisacodyL [Dulcolax suppos] 10 mg MS QDAY PRN #30 supp.rect 10/04/19 07/09/20 1 Day Ago Rx ~07/08/20 Aspirin EC [Ecotrin] 325 mg PO QDAY tablet 07/09/20 Unknown Rx Docusate Sodium [Colace CAP] 100 mg PO BID capsule 07/09/20 Unknown Rx Isosorbide Dinitrate [Isordil] 20 mg PO BID tablet 07/09/20 Unknown Rx Nitroglycerin [Nitrostat] 0.4 mg SL BID PRN 07/09/20 07/09/20 1 Day Ago History ~07/08/20 Potassium Chloride [K-Dur] 20 meq PO QAM tablet 07/09/20 Unknown Rx Active Meds: Active Medications Nitroglycerin (Nitrostat) 0.4 mg SL .Q5MIN PRN PRN Reason: Chest Pain Review of Systems Constitutional: no fever, no chills, no sweats Ears, nose, mouth and throat: no ear pain, no nose pain, no sinus pressure, no sinus pain Cardiovascular: chest pain, no orthopnea, no palpitations, no rapid/irregular heart beat, no edema, no syncope, no lightheadedness, no shortness of breath, no dyspnea on exertion Respiratory: no cough, no shortness of breath, no dyspnea on exertion, no congestion, no wheezing, no pain on inspiration Gastrointestinal: abdominal pain, nausea, vomiting, no diarrhea, no constipa tion, no change in bowel habits, no hematemesis, no coffee ground emesis Genitourinary Female: no pelvic pain, no flank pain, no dysuria, no urinary frequency, no urgency Musculoskeletal: no neck stiffness, no neck pain, no shooting arm pain, no arm numbness/tingling, no low back pain, no shooting leg pain Integumentary: no rash, no pruritis, no redness, no sores, no wounds Neurological: no head injury, no paralysis, no weakness, no parathesias, no numbness, no tingling, no seizures, no syncope Psychiatric: no anxiety Endocrine: no cold intolerance, no heat intolerance Hematologic/Lymphatic: no easy bruising, no easy bleeding Allergic/Immunologic: no urticaria Physical Examination Vital Signs Temp Pulse Resp BP Pulse Ox 98.2 F 103 H 18 116/77 99 07/12/20 07:12 07/12/20 07:12 07/12/20 07:12 07/12/20 07:12 07/12/20 07:12 General appearance: other (n/v) HEENT: Positive: PERRL, Normocephaly, Mucus Membranes Moist Neck: Positive: neck supple, trachea midline Cardiac: Positive: Reg Rate and Rhythm, S1/S2 Lungs: Positive: Decreased Breath Sounds Neuro: Positive: Grossly Intact Abdomen: Positive: Soft, Active Bowel Sounds Skin: Negative: Rash Musculoskeletal: No Pain Extremities: Absent: edema Results 07/12/20 11:33 Coagulation 07/12/20 Range/Units 11:33 PT 14.3 (12.2-14.9) Sec. INR 1.09 (0.87-1.13) CBC 07/12/20 Range/Units 11:33 Hgb 15.3 H (10.1-14.3) gm/dl Hct 43.2 H (30.3-42.9) % Plt Count 258 (140-440) K/mm3 - Imaging and Cardiology Echo: report reviewed (02/10/2020 which showed EF 25-30%, LV mildly dilated, echo density suggestive of thrombus in LV apex - ? organized chronic thrombus, pacemaker wire in RA.) Cardiac cath: report reviewed (02/2014 showed patent stent in prox LAD, catheter-induced spasm in the prox LAD resolved with intracoronary nitro, EF 15- 20%. ) EKG: report reviewed, image reviewed EKG interpretations - Telemetry EKG Rhythm: Sinus Rhythm - EKG Sinus rhythms and dysrhythmias: sinus rhythm Repolarization changes or abnormalities: nonspecific abnormality, ST segment, and/or T wave Assessment and Plan AMI r/o. No plans for ischemic evaluation at this time - can consider stress testing once medically stabilized as OP. Pt underwent tte on 02/10/2020 which showed EF 25-30%, LV mildly dilated, echo density suggestive of thrombus in LV apex - ? organized chronic thrombus, pacemaker wire in RA. Will obtain tte with contrast. Initiate Eliquis 5mg BID. No current clinical evidence of acutely decompensated HF. Resume home GDMT. Further eval/management of abd pain with intractable n/v per primary team. Will follow. The patient has been seen in conjunction with Dr. Pickens who agrees with the assessment and plan of care. - Patient Problems (1) Abdominal pain Current Visit: Yes Status: Acute Qualifiers: Abdominal location: generalized Qualified Code(s): R10.84 - Generalized abdominal pain (2) Intractable nausea and vomiting Current Visit: Yes Status: Acute (3) Chest pain Current Visit: Yes Status: Acute Qualifiers: Chest pain type: unspecified Qualified Code(s): R07.9 - Chest pain, unspecified (4) Ischemic cardiomyopathy Current Visit: Yes Status: Chronic (5) Chronic HFrEF (heart failure with reduced ejection fraction) Current Visit: Yes Status: Chronic (6) Automatic implantable cardioverter-defibrillator in situ Current Visit: Yes Status: Chronic (7) Coronary artery disease Current Visit: Yes Status: Chronic Qualifiers: Coronary Disease-Associated Artery/Lesion type: unspecified vessel or lesion type [place] vs. transplanted heart: [place] heart Associated angina: with unspecified angina Qualified Code(s): I25.119 - Atherosclerotic heart disease of [place] coronary artery with unspecified angina pectoris (8) Stented coronary artery Current Visit: Yes Status: Chronic (9) LV (left ventricular) mural thrombus Current Visit: Yes Status: Suspected (10) HTN (hypertension) Current Visit: Yes Status: Chronic Qualifiers: Hypertension type: essential hypertension Qualified Code(s): I10 - Essential (primary) hypertension (11) Hyperlipidemia Current Visit: Yes Status: Chronic (12) History of CVA (cerebrovascular accident) Current Visit: Yes Status: Chronic (13) History of seizure Current Visit: Yes Status: Chronic
[2020-07-12 13:53] LABS: Alanine Aminotransferase 8 units/L (7-56); Albumin 4.9 g/dL (3.9-5); BUN/Creatinine Ratio 18; Blood Urea Nitrogen 16 mg/dL (7-17); Calcium 10.4 mg/dL (8.4-10.2); Hemolysis Index 27
[2020-07-12] MEDS ORDERED: ASPIRIN 81 MG TAB CHEW PO ONE (14:04)
[2020-07-12] MEDS ORDERED: ONDANSETRON 4 MG/2 ML INJ IV PRN (14:28)
[2020-07-12] MEDS ORDERED: ACETAMINOPHEN 325 MG TAB PO PRN (14:28)
[2020-07-12] MEDS ORDERED: SODIUM CHLORIDE 0.9% 1000 ML 1,000 ML IV SCH (14:30)
[2020-07-12] MEDS ORDERED: DEXTROSE 50% IN WATER (25GM) 50 ML SYRINGE IV PRN (14:30)
--- NOTE | 2020-07-12 14:39 | History and Physical Report ---
History of Present Illness Date of examination: 07/12/20 Chief complaint: Persistent nausea and vomiting since yesterday History of present illness: Anayeli Hale is a 50 YO female [place] [facility] resident with a past medical history of HFrEF, ICMP, AICD in situ, CAD s/p PCI, HTN, HLP, CVA, seizure, obesity presents to the ED with complaints of persistent nausea and vomiting since yesterday and later started having abdominal pain and chest pain. History of marijuana use. ED consulted cardiology as the patient is followed at [facility]. Apparently echocardiogram in the past showed left ventricular thrombus. Cardiology note reviewed. Patient was started on Eliquis today. Patient is being admitted for further management of her intractable nausea vomiting and possibly dehydration. Patient denies any fever or chills or melena or hematemesis Past History Past Medical History: CAD (PCI in 2013), diabetes, heart failure (History of ICD and PPM placement), hypertension, stroke Past Surgical History: PTCA Social history: smoking (Smokes marijuana) Medications and Allergies Allergies Allergy/AdvReac Type Severity Reaction Status Date / Time No Known Allergies Allergy Verified 07/06/14 09:55 Home Medications Medication Instructions Recorded Confirmed Last Taken Type Clopidogrel Bisulfate [Plavix] 75 mg PO DAILY 02/23/14 07/09/20 1 Day Ago History ~07/08/20 Folic Acid [Folvite] 1 mg PO QDAY #30 tablet 07/27/15 07/09/20 1 Day Ago Rx ~07/08/20 Carvedilol [Coreg] 25 mg PO BID 02/23/19 07/09/20 1 Day Ago History ~07/08/20 Potassium Chloride 20 meq PO QID 02/23/19 07/09/20 1 Day Ago History ~07/08/20 metOLazone [Metolazone] 2.5 mg PO QDAY 02/23/19 07/09/20 1 Day Ago History ~07/08/20 lisinopriL [Zestril TAB] 5 mg PO QDAY #30 tablet 02/24/19 07/09/20 1 Day Ago Rx ~07/08/20 Ondansetron [Zofran ODT TAB] 4 mg PO Q6H PRN #30 tab.rapdis 09/30/19 07/09/20 1 Day Ago Rx ~07/08/20 Furosemide [Lasix TAB] 20 mg PO QDAY #30 tablet 10/04/19 07/09/20 1 Day Ago Rx ~07/08/20 bisacodyL [Dulcolax suppos] 10 mg MD QDAY PRN #30 supp.rect 10/04/19 07/09/20 1 Day Ago Rx ~07/08/20 Aspirin EC [Ecotrin] 325 mg PO QDAY tablet 07/09/20 Unknown Rx Docusate Sodium [Colace CAP] 100 mg PO BID capsule 07/09/20 Unknown Rx Isosorbide Dinitrate [Isordil] 20 mg PO BID tablet 07/09/20 Unknown Rx Nitroglycerin [Nitrostat] 0.4 mg SL BID PRN 07/09/20 07/09/20 1 Day Ago History ~07/08/20 Potassium Chloride [K-Dur] 20 meq PO QAM tablet 07/09/20 Unknown Rx Active Meds: Active Medications Acetaminophen (Tylenol) 650 mg PO Q4H PRN PRN Reason: Pain MILD(1-3)/Fever >100.5/MORAES Apixaban (Eliquis) 5 mg PO Q12HR URBEN; Protocol Dextrose (D50w (25gm) Syringe) 50 ml IV Q30MIN PRN; Protocol PRN Reason: Hypoglycemia Sodium Chloride (Nacl 0.9% 1000 Ml) 1,000 mls @ 75 mls/hr IV DIRECT RUBEN Stop: 07/13/20 14:00 Insulin Human Lispro (Humalog) 0 unit SUB-Q Q6H RUBEN; Protocol Nitroglycerin (Nitrostat) 0.4 mg SL .Q5MIN PRN PRN Reason: Chest Pain Ondansetron HCl (Zofran) 4 mg IV Q6H PRN PRN Reason: Nausea And Vomiting Sodium Chloride (Sodium Chloride Flush Syringe 10 Ml) 10 ml IV BID RUBEN Sodium Chloride (Sodium Chloride Flush Syringe 10 Ml) 10 ml IV PRN PRN PRN Reason: LINE FLUSH Review of Systems Constitutional: weakness, no weight loss, no fever, no chills Ears, nose, mouth and throat: no ear pain, no sore throat, no headache Cardiovascular: chest pain, high blood pressure, no palpitations, no shortness of breath Respiratory: no cough, no hemoptysis Gastrointestinal: abdominal pain, nausea, vomiting, no hematemesis, no coffee ground emesis, no melena Genitourinary Female: no dysuria Rectal: no pain Musculoskeletal: no neck stiffness, no low back pain Integumentary: no rash Neurological: no seizures, no syncope (Home) Psychiatric: no anxiety, no depression Exam - Constitutional Vitals: Temp Pulse Resp BP Pulse Ox 98.2 F 85 23 127/86 99 07/12/20 07:12 07/12/20 12:00 07/12/20 12:00 07/12/20 12:00 07/12/20 12:00 General appearance: Present: no acute distress, well-nourished - EENT Eyes: Present: PERRL, EOM intact ENT: hearing intact, clear oral mucosa - Neck Neck: Present: supple, normal ROM. Absent: masses or JVD - Respiratory Respiratory effort: normal Respiratory: bilateral: CTA - Cardiovascular Rhythm: regular Heart Sounds: Present: S1 & S2 - Extremities Extremities: No edema - Abdominal General gastrointestinal: Present: soft, non-tender - Rectal Rectal Exam: deferred - Integumentary Integumentary: Present: clear - Musculoskeletal Musculoskeletal: strength equal bilaterally - Psychiatric Psychiatric: appropriate mood/affect - Neurologic Neurologic: no focal deficits HEART Score - HEART Score Troponin: Troponin T < 0.010 ng/mL (0.00-0.029) 07/12/20 12:37 Results - Labs CBC & Chem 7: 07/12/20 11:33 07/12/20 12:37 Labs: Abnormal lab results 07/12/20 07/12/20 Range/Units 11:33 12:37 Hgb 15.3 H (10.1-14.3) gm/dl Hct 43.2 H (30.3-42.9) % Sodium 135 L (137-145) mmol/L Chloride 94.9 L (98-107) mmol/L Carbon Dioxide 16 L (22-30) mmol/L Glucose 140 H (65-100) mg/dL Calcium 10.4 H (8.4-10.2) mg/dL Total Protein 8.3 H (6.3-8.2) g/dL Assessment and Plan - Patient Problems (1) Abdominal pain Current Visit: Yes Status: Acute Qualifiers: Abdominal location: generalized Qualified Code(s): R10.84 - Generalized abdominal pain Plan to address problem: CT of the abdomen and pelvis results reviewed No acute lesions Most likely abdominal pain is from recurrent vomiting IV morphine as needed for pain IV PPI (2) Cannabinoid hyperemesis syndrome Current Visit: Yes Status: Acute Plan to address problem: Patient is chronic marijuana user We will keep patient n.p.o. Zofran IV as needed (3) Intractable nausea and vomiting Current Visit: Yes Status: Acute Plan to address problem: As addressed above under acute hyperemesis from marijuana use N.p.o. (4) Chronic HFrEF (heart failure with reduced ejection fraction) Current Visit: Yes Status: Chronic Plan to address problem: Cardiology note reviewed and appreciated Continue management per cardiology recommendations Echocardiogram from showed EF of 25 to 30% Patient has a repeat echo ordered today (5) LV (left ventricular) mural thrombus Current Visit: Yes Status: Suspected Plan to address problem: Cardiology note reviewed Patient has been started on Eliquis (6) Metabolic acidosis Current Visit: No Status: Acute Plan to address problem: Secondary to recurrent vomiting We will monitor (7) HTN (hypertension) Current Visit: No Status: Chronic Qualifiers: Hypertension type: essential hypertension Qualified Code(s): I10 - Essential (primary) hypertension Plan to address problem: Continue home medications
[2020-07-12] MEDS ORDERED: ASPIRIN 81 MG TAB CHEW ONE (14:46)
[2020-07-12] MEDS: INSULIN LISPRO 100 UNIT/ML VIAL 3 mL SUB-Q SCH ×2 (16:53→21:29)
[2020-07-12] MEDS ORDERED: MORPHINE 2 MG/1 ML INJ IV PRN (19:16)
[2020-07-12] MEDS ORDERED: APIXABAN 5 MG TAB PO SCH (22:00)
[2020-07-13 04:41] VITALS: BP 104/69
[2020-07-13] MEDS: INSULIN LISPRO 100 UNIT/ML VIAL 3 mL SUB-Q SCH ×2 (07:12→10:28)
[2020-07-13 08:35] LABS: Basophils % (Auto) 0.2 % (0.0-1.8); Eosinophils % (Auto) 0.1 % (0.0-4.3); Hematocrit 38.1 % (30.3-42.9); Hemoglobin 13.5 gm/dl (10.1-14.3); Lymphocytes # (Auto) 1.5 K/mm3 (1.2-5.4); Lymphocytes % (Auto) 21.7 % (13.4-35.0); Mean Corpuscular HGB Conc 35 % (30-34); Mean Corpuscular Volume 95 fl (79-97); Monocytes # (Auto) 0.7 K/mm3 (0.0-0.8); Monocytes % (Auto) 9.9 % (0.0-7.3); Platelet Count 230 K/mm3 (140-440); Red Cell Distribution Width 12.9 % (13.2-15.2)
[2020-07-13 09:00] LABS: Blood Urea Nitrogen 13 mg/dL (7-17); Calcium 9.2 mg/dL (8.4-10.2); Hemolysis Index 5
[2020-07-13 09:23] LABS: BUN/Creatinine Ratio 19
[2020-07-13] MEDS ORDERED: ASPIRIN EC 325 MG TAB PO SCH (10:00)
--- NOTE | 2020-07-13 10:58 | Progress Note ---
Assessment and Plan Assessment and plan: -- Abdominal pain Current Visit: Yes Status: Acute Plan to address problem: CT of the abdomen and pelvis results reviewed No acute lesions Most likely abdominal pain is from recurrent vomiting IV morphine as needed for pain IV PPI --Cannabinoid hyperemesis syndrome Current Visit: Yes Status: Acute Plan to address problem: Patient is chronic marijuana user We will keep patient n.p.o. Zofran IV as needed -- Intractable nausea and vomiting Current Visit: Yes Status: Acute Plan to address problem: As addressed above under acute hyperemesis from marijuana use N.p.o. -- Chronic HFrEF (heart failure with reduced ejection fraction) Current Visit: Yes Status: Chronic Plan to address problem: Cardiology note reviewed and appreciated Continue management per cardiology recommendations Echocardiogram from showed EF of 25 to 30% Patient has a repeat echo ordered today -- LV (left ventricular) mural thrombus Current Visit: Yes Status: Suspected Plan to address problem: Cardiology note reviewed Patient has been started on Eliquis --Metabolic acidosis Current Visit: No Status: Acute Plan to address problem: Secondary to recurrent vomiting We will monitor -- HTN (hypertension) Current Visit: No Status: Chronic Plan to address problem: Continue home medications Hospitalist Physical - Constitutional Vitals: Temp Pulse Resp BP Pulse Ox 98.6 F 82 16 104/69 99 07/13/20 03:29 07/13/20 06:00 07/13/20 03:29 07/13/20 03:29 07/13/20 03:29 General appearance: Present: no acute distress, well-nourished HEART Score - HEART Score Troponin: Troponin T < 0.010 ng/mL (0.00-0.029) 07/12/20 12:37 Results - Labs CBC & Chem 7: 07/13/20 08:00 07/13/20 08:00 Labs: Laboratory Last Values WBC 6.9 K/mm3 (4.5-11.0) 07/13/20 08:00 RBC 4.00 M/mm3 (3.65-5.03) 07/13/20 08:00 Hgb 13.5 gm/dl (10.1-14.3) 07/13/20 08:00 Hct 38.1 % (30.3-42.9) 07/13/20 08:00 MCV 95 fl (79-97) 07/13/20 08:00 MCH 34 pg (28-32) H 07/13/20 08:00 MCHC 35 % (30-34) H 07/13/20 08:00 RDW 12.9 % (13.2-15.2) L 07/13/20 08:00 Plt Count 230 K/mm3 (140-440) 07/13/20 08:00 Lymph % (Auto) 21.7 % (13.4-35.0) 07/13/20 08:00 [place] % (Auto) 9.9 % (0.0-7.3) H 07/13/20 08:00 Eos % (Auto) 0.1 % (0.0-4.3) 07/13/20 08:00 Baso % (Auto) 0.2 % (0.0-1.8) 07/13/20 08:00 Lymph # 1.5 K/mm3 (1.2-5.4) 07/13/20 08:00 [place] # 0.7 K/mm3 (0.0-0.8) 07/13/20 08:00 Eos # 0.0 K/mm3 (0.0-0.4) 07/13/20 08:00 Baso # 0.0 K/mm3 (0.0-0.1) 07/13/20 08:00 Seg Neutrophils % 68.1 % (40.0-70.0) 07/13/20 08:00 Seg Neutrophils # 4.7 K/mm3 (1.8-7.7) 07/13/20 08:00 PT 14.3 Sec. (12.2-14.9) 07/12/20 11:33 INR 1.09 (0.87-1.13) 07/12/20 11:33 Sodium 137 mmol/L (137-145) 07/13/20 08:00 Potassium 3.1 mmol/L (3.6-5.0) L 07/13/20 08:00 Chloride 99.5 mmol/L (98-107) 07/13/20 08:00 Carbon Dioxide 23 mmol/L (22-30) D 07/13/20 08:00 Anion Gap 18 mmol/L 07/13/20 08:00 BUN 13 mg/dL (7-17) 07/13/20 08:00 Creatinine 0.7 mg/dL (0.6-1.2) 07/13/20 08:00 Estimated GFR > 60 ml/min 07/13/20 08:00 BUN/Creatinine Ratio 19 % 07/13/20 08:00 Glucose 105 mg/dL (65-100) H 07/13/20 08:00 POC Glucose 83 (70-105) 07/13/20 05:57 Calcium 9.2 mg/dL (8.4-10.2) 07/13/20 08:00 Magnesium 2.20 mg/dL (1.7-2.3) 07/12/20 12:37 Total Bilirubin 0.80 mg/dL (0.1-1.2) 07/12/20 12:37 AST 15 units/L (5-40) 07/12/20 12:37 ALT 8 units/L (7-56) 07/12/20 12:37 Alkaline Phosphatase 87 units/L (35-129) 07/12/20 12:37 Total Creatine Kinase 98 units/L (30-135) 07/12/20 12:37 Troponin T < 0.010 ng/mL (0.00-0.029) 07/12/20 12:37 Total Protein 8.3 g/dL (6.3-8.2) H 07/12/20 12:37 Albumin 4.9 g/dL (3.9-5) 07/12/20 12:37 Albumin/Globulin Ratio 1.4 % 07/12/20 12:37 Lipase 16 units/L (13-60) 07/12/20 12:37 Joseph/IV: Voiding Method Toilet IV Catheter Type [Left Hand] Peripheral IV IV Catheter Type [Right INT / Saline Lock Forearm] Active Medications - Current Medications Current Medications: Generic Name Dose Route Start Last Admin Trade Name Freq PRN Reason Stop Dose Admin Acetaminophen 650 mg 07/12/20 14:28 Tylenol PO Q4H PRN Pain MILD(1-3)/Fever >100.5/MORAES Aspirin 325 mg 07/13/20 10:00 07/13/20 10:39 Ecotrin PO 325 mg QDAY RUBEN Administration Dextrose 50 ml 07/12/20 14:30 D50w (25gm) Syringe IV Q30MIN PRN Hypoglycemia Protocol Sodium Chloride 1,000 mls @ 75 mls/hr 07/12/20 14:30 Nacl 0.9% 1000 Ml IV 07/13/20 14:00 DIRECT [facility] Insulin Human Lispro 0 unit 07/12/20 16:00 07/13/20 10:28 Humalog SUB-Q Not Given Q6H [facility] Protocol Morphine Sulfate 1 mg 07/12/20 19:16 07/12/20 19:46 Morphine IV 1 mg Q3H PRN Administration Pain, Moderate (4-6) Nitroglycerin 0.4 mg 07/12/20 11:12 Nitrostat SL .Q5MIN PRN Chest Pain Ondansetron HCl 4 mg 07/12/20 14:28 07/12/20 17:17 Zofran IV 4 mg Q6H PRN Administration Nausea And Vomiting Potassium Chloride 40 meq 07/13/20 11:00 07/13/20 10:39 K-Dur PO 07/13/20 11:01 40 meq ONCE ONE Administration Sodium Chloride 10 ml 07/12/20 22:00 07/13/20 10:39 Sodium Chloride Flush Syringe 10 Ml IV 10 ml BID RUBEN Administration Sodium Chloride 10 ml 07/12/20 14:28 Sodium Chloride Flush Syringe 10 Ml IV PRN PRN LINE FLUSH
[2020-07-13] MEDS ORDERED: POTASSIUM CHLORIDE ER 20 MEQ TAB PO ONE (11:00)
--- NOTE | 2020-07-13 12:16 | Progress Note ---
Assessment and Plan AMI r/o. N/V and chest pain resolved. F/u tte with contrast is negative for intracardiac thrombus. D/c Eliquis. Currently stable cardiac status. Pt may discharge from cardiology standpoint. Follow up in our [place] office with Dr. SRINI Teixeira on 07/20/2020 @ 9:45AM. The patient has been seen in conjunction with Dr. Flores who agrees with the assessment and plan of care. - Patient Problems (1) Abdominal pain Current Visit: Yes Status: Resolved Qualifiers: Abdominal location: generalized Qualified Code(s): R10.84 - Generalized abdominal pain (2) Intractable nausea and vomiting Current Visit: Yes Status: Resolved (3) Chest pain Current Visit: Yes Status: Resolved Qualifiers: Chest pain type: unspecified Qualified Code(s): R07.9 - Chest pain, unspecified (4) Ischemic cardiomyopathy Current Visit: Yes Status: Chronic (5) Chronic HFrEF (heart failure with reduced ejection fraction) Current Visit: Yes Status: Chronic (6) Automatic implantable cardioverter-defibrillator in situ Current Visit: Yes Status: Chronic (7) Coronary artery disease Current Visit: Yes Status: Chronic Qualifiers: Coronary Disease-Associated Artery/Lesion type: unspecified vessel or lesion type [place] vs. transplanted heart: [place] heart Associated angina: with unspecified angina Qualified Code(s): I25.119 - Atherosclerotic heart disease of [place] coronary artery with unspecified angina pectoris (8) Stented coronary artery Current Visit: Yes Status: Chronic (9) LV (left ventricular) mural thrombus Current Visit: Yes Status: Suspected (10) HTN (hypertension) Current Visit: Yes Status: Chronic Qualifiers: Hypertension type: essential hypertension Qualified Code(s): I10 - Essential (primary) hypertension (11) Hyperlipidemia Current Visit: Yes Status: Chronic (12) History of CVA (cerebrovascular accident) Current Visit: Yes Status: Chronic (13) History of seizure Current Visit: Yes Status: Chronic Subjective Date of service: 07/13/20 Principal diagnosis: n/v Interval history: pt resting in bed, feels much better today, n/v resolved. in SR on tele HR 90s. Objective Last Vital Signs Temp 98.6 F 07/13/20 03:29 Pulse 82 07/13/20 06:00 Resp 16 07/13/20 03:29 BP 104/69 07/13/20 03:29 Pulse Ox 99 07/13/20 03:29 - Physical Examination General: No Apparent Distress HEENT: Positive: PERRL, Normocephaly, Mucus Membranes Moist Neck: Positive: neck supple, trachea midline Cardiac: Positive: Reg Rate and Rhythm, S1/S2 Lungs: Positive: Decreased Breath Sounds Neuro: Positive: Grossly Intact Abdomen: Positive: Soft, Active Bowel Sounds. Negative: Tender Skin: Negative: Rash Musculoskeletal: No Pain Extremities: Absent: edema - Labs and Meds Cardiac Enzymes 07/12/20 Range/Units 12:37 AST 15 (5-40) units/L CBC 07/13/20 Range/Units 08:00 WBC 6.9 (4.5-11.0) K/mm3 RBC 4.00 (3.65-5.03) M/mm3 Hgb 13.5 (10.1-14.3) gm/dl Hct 38.1 (30.3-42.9) % Plt Count 230 (140-440) K/mm3 Lymph # 1.5 (1.2-5.4) K/mm3 [place] # 0.7 (0.0-0.8) K/mm3 Eos # 0.0 (0.0-0.4) K/mm3 Baso # 0.0 (0.0-0.1) K/mm3 Comprehensive Metabolic Panel 07/12/20 07/13/20 Range/Units 12:37 08:00 Sodium 135 L 137 (137-145) mmol/L Potassium 3.8 3.1 L (3.6-5.0) mmol/L Chloride 94.9 L 99.5 (98-107) mmol/L Carbon Dioxide 16 L 23 D (22-30) mmol/L BUN 16 13 (7-17) mg/dL Creatinine 0.9 0.7 (0.6-1.2) mg/dL Glucose 140 H 105 H (65-100) mg/dL Calcium 10.4 H 9.2 (8.4-10.2) mg/dL AST 15 (5-40) units/L ALT 8 (7-56) units/L Alkaline Phosphatase 87 (35-129) units/L Total Protein 8.3 H (6.3-8.2) g/dL Albumin 4.9 (3.9-5) g/dL - Imaging and Cardiology EKG: report reviewed, image reviewed Echo: report reviewed (02/10/2020 which showed EF 25-30%, LV mildly dilated, echo density suggestive of thrombus in LV apex - ? organized chronic thrombus, pacemaker wire in RA.) Cardiac cath: report reviewed (02/2014 showed patent stent in prox LAD, catheter- induced spasm in the prox LAD resolved with intracoronary nitro, EF 15-20%. ) - Telemetry EKG Rhythm: Sinus Rhythm - EKG Sinus rhythms and dysrhythmias: sinus rhythm Repolarization changes or abnormalities: nonspecific abnormality, ST segment, and/or T wave
--- NOTE | 2020-07-13 13:48 | Discharge Summary ---
Providers - Providers Date of Admission: 07/12/20 14:05 Date of discharge: 07/13/20 Attending physician: ABBEY CARRIZALES 07/12/20 10:49 Consult to Physician [CONS] Urgent Comment: Consulting Provider: MARCO FREY Physician Instructions: Reason For Exam: cp known to your group Primary care physician: [employer] Hospitalization Condition: Good Disposition: DC-01 TO HOME OR SELFCARE Core Measure Documentation - Palliative Care Palliative Care/ Comfort Measures: Not Applicable - Core Measures Any of the following diagnoses?: none Exam - Constitutional Vitals: Temp Pulse Resp BP Pulse Ox 98.6 F 82 16 104/69 99 07/13/20 03:29 07/13/20 06:00 07/13/20 03:29 07/13/20 03:29 07/13/20 03:29 General appearance: Present: no acute distress, mild distress, severe distress, well-nourished - EENT Eyes: Present: PERRL, EOM intact. Absent: scleral icterus - Neck Neck: Present: supple, normal ROM Plan Activity: advance as tolerated, fall precautions Diet: other (cardiac diet) Additional Instructions: If you have worsening symptoms contact MD or go to emergency room. Follow up in our [place] cardiology office with Dr. SRINI Frey on 07/20/2020 @ 9:45AM. Follow up with: MARISEL CARTWRIGHT MD [Primary Care Provider] - 3-5 Days MARCO FREY MD [Staff Physician] - 07/20/20 9:45 am Forms: AMA Form Prescriptions: Ondansetron [Zofran ODT TAB] 4 mg PO Q6H PRN #30 tab.rapdis PRN Reason: Nausea
== END 2020-07-13 15:30 | disposition home or self-care (01) ==
LOC: ED 07:00 → 4A 14:05
PROVIDERS: ADMIT Internal Medicine; ATTEND Internal Medicine
DX: R10.84 Generalized abdominal pain (principal); R07.89 Other chest pain; R11.2 Nausea with vomiting, unspecified; I11.0 Hypertensive heart disease with heart failure; I50.22 Chronic systolic (congestive) heart failure; I51.3 Intracardiac thrombosis, not elsewhere classified; E87.2 Acidosis; I25.5 Ischemic cardiomyopathy; I25.119 Atherosclerotic heart disease of native coronary artery with unspecified angina pectoris; E78.5 Hyperlipidemia, unspecified; I25.2 Old myocardial infarction; E66.9 Obesity, unspecified; E78.00 Pure hypercholesterolemia, unspecified; E11.9 Type 2 diabetes mellitus without complications; F12.90 Cannabis use, unspecified, uncomplicated; Z86.73 Personal history of transient ischemic attack (TIA), and cerebral infarction without residual deficits; Z86.69 Personal history of other diseases of the nervous system and sense organs; Z95.5 Presence of coronary angioplasty implant and graft; Z95.0 Presence of cardiac pacemaker; Z79.02 Long term (current) use of antithrombotics/antiplatelets; Z79.82 Long term (current) use of aspirin; Z79.899 Other long term (current) drug therapy; Z68.33 Body mass index [BMI] 33.0-33.9, adult
CPT/HCPCS: 36415; 71045; 74176; 80048; 80053; 82550; 82962; 83690; 83735; 84484; 85014; 85018; 85025; 85049; 85610; 93005; 93017; 93320; 93325; 96372; 96374; 96375; 99285; C8928; G0378; J1630; J2270; J2405; J2765; J7120; Q9957

== ENCOUNTER 2021-08-30 17:00 | Emergency (ER) | payer MEDICAID ==
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
[2021-08-30 18:32] LABS: Basophils % (Auto) 0.2 % (0.0-1.8); Eosinophils % (Auto) 0.7 % (0.0-4.3); Hematocrit 39.7 % (30.3-42.9); Hemoglobin 13.5 gm/dl (10.1-14.3); Lymphocytes # (Auto) 1.6 K/mm3 (1.2-5.4); Lymphocytes % (Auto) 24.7 % (13.4-35.0); Mean Corpuscular HGB Conc 34 % (30-34); Mean Corpuscular Volume 96 fl (79-97); Monocytes # (Auto) 0.5 K/mm3 (0.0-0.8); Monocytes % (Auto) 8.2 % (0.0-7.3); Platelet Count 216 K/mm3 (140-440); Red Blood Count 4.13 M/mm3 (3.65-5.03); Red Cell Distribution Width 13.5 % (13.2-15.2)
[2021-08-30 18:52] LABS: Blood Urea Nitrogen 10 mg/dL (7-17); Hemolysis Index 18
[2021-08-30 18:53] LABS: BUN/Creatinine Ratio 17
[2021-08-30 19:49] VITALS: BP 121/79
--- NOTE | 2021-09-05 14:41 | Electrocardiograph Report ---
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
== END 2021-08-30 20:01 | disposition home or self-care (01) ==
LOC: ED 17:00
DX: T82.897A Other specified complication of cardiac prosthetic devices, implants and grafts, initial encounter (principal); Z95.810 Presence of automatic (implantable) cardiac defibrillator; I11.0 Hypertensive heart disease with heart failure; I50.9 Heart failure, unspecified; Z86.73 Personal history of transient ischemic attack (TIA), and cerebral infarction without residual deficits; E78.00 Pure hypercholesterolemia, unspecified; Z98.890 Other specified postprocedural states; Y71.8 Miscellaneous cardiovascular devices associated with adverse incidents, not elsewhere classified; Y92.89 Other specified places as the place of occurrence of the external cause
CPT/HCPCS: 36415; 80048; 83735; 84484; 85025; 93005; 99283

== ENCOUNTER 2021-11-07 11:22 | Emergency (ER) | payer MEDICAID ==
[2021-11-07] MEDS ORDERED: ACETAMINOPHEN 500 MG TAB PO ONE (11:26)
--- NOTE | 2021-11-07 11:29 | Emergency Department Report ---
ED General Adult HPI - General Chief complaint: Chest Pain Stated complaint: CHEST PAIN Time Seen by Provider: 11/07/21 11:24 - History of Present Illness Initial comments: Patient presents by EMS secondary to chest pain. She reports a 1 day history of chest pain associate with muscle aches, body aches, cough, congestion, gener alized malaise, nausea, and vomiting. She states she has had subjective fevers and chills. Cough has been producing a whitish phlegm. She has a family member that was recently diagnosed with coronavirus. Patient was not vaccinated. Patient is here because she does not feel well. This is not similar to what she had when she had a heart attack. When she had a heart attack, she was having left shoulder pain. Today, she states that she "hurts all over." There has been no exposure to influenza. There is no trauma. She has had no pleuritic pain. She states that she is just sore all over and "feels bad." - Related Data Home Medications Medication Instructions Recorded Confirmed Last Taken Clopidogrel Bisulfate [Plavix] 75 mg PO DAILY 02/23/14 07/09/20 1 Day Ago ~07/08/20 Carvedilol [Coreg] 25 mg PO BID 02/23/19 07/09/20 1 Day Ago ~07/08/20 Potassium Chloride 20 meq PO QID 02/23/19 07/09/20 1 Day Ago ~07/08/20 metOLazone [Metolazone] 2.5 mg PO QDAY 02/23/19 07/09/20 1 Day Ago ~07/08/20 Nitroglycerin [Nitrostat] 0.4 mg SL BID PRN 07/09/20 07/09/20 1 Day Ago ~07/08/20 Previous Rx's Medication Instructions Recorded Last Taken Type Folic Acid [Folvite] 1 mg PO QDAY #30 tablet 07/27/15 1 Day Ago Rx ~07/08/20 lisinopriL [Zestril TAB] 5 mg PO QDAY #30 tablet 02/24/19 1 Day Ago Rx ~07/08/20 Furosemide [Lasix TAB] 20 mg PO QDAY #30 tablet 10/04/19 1 Day Ago Rx ~07/08/20 bisacodyL [Dulcolax suppos] 10 mg [place] QDAY PRN #30 supp.rect 10/04/19 1 Day Ago Rx ~07/08/20 Aspirin EC [Ecotrin] 325 mg PO QDAY tablet 07/09/20 Unknown Rx Docusate Sodium [Colace CAP] 100 mg PO BID capsule 07/09/20 Unknown Rx Isosorbide Dinitrate [Isordil] 20 mg PO BID tablet 07/09/20 Unknown Rx Ondansetron [Zofran ODT TAB] 4 mg PO Q6H PRN #30 tab.rapdis 07/13/20 Unknown Rx Albuterol Sulfate [Proventil Hfa] 2 puff IH 4XD #1 hfa.aer.ad 11/07/21 Unknown Rx guaiFENesin/DEXTROMETHORPHAN 1 tab PO BID #20 tab 11/07/21 Unknown Rx [Mucinex DM ER 600-30 mg TAB] methylPREDNISolone [Medrol 4MG 4 mg PO DAILY #1 tab.ds.pk 11/07/21 Unknown Rx DOSEPAK (21 tabs)] Allergies Allergy/AdvReac Type Severity Reaction Status Date / Time No Known Allergies Allergy Verified 07/06/14 09:55 ED Review of Systems ROS: Stated complaint: CHEST PAIN Other details as noted in HPI Comment: All other systems reviewed and negative Constitutional: see HPI Eyes: denies: vision change ENT: denies: throat pain Respiratory: see HPI Cardiovascular: as per HPI Endocrine: denies: unexplained weight loss Gastrointestinal: as per HPI. denies: abdominal pain Genitourinary: denies: dysuria Musculoskeletal: as per HPI Skin: denies: rash Neurological: headache Hematological/Lymphatic: denies: easy bruising ED Past Medical Hx - Past Medical History Hx Hypertension: Yes Hx CVA: Yes (2015, no deficits) Hx Heart Attack/AMI: Yes Hx Congestive Heart Failure: Yes Hx Diabetes: No Hx Renal Disease: No Hx Asthma: No Hx COPD: No Additional medical history: CVD. High cholestrol - Surgical History Hx Coronary Stent: Yes (x1) Hx Pacemaker: Yes Hx Internal Defibrillator: Yes Additional Surgical History: stent x 1, placed in 2008. Defribrilator - Family History Family history: hypertension - Social History Smoking Status: Never Smoker Substance Use Type: Alcohol - Medications Home Medications: Home Medications Medication Instructions Recorded Confirmed Last Taken Type Clopidogrel Bisulfate [Plavix] 75 mg PO DAILY 02/23/14 07/09/20 1 Day Ago History ~07/08/20 Folic Acid [Folvite] 1 mg PO QDAY #30 tablet 07/27/15 07/09/20 1 Day Ago Rx ~07/08/20 Carvedilol [Coreg] 25 mg PO BID 02/23/19 07/09/20 1 Day Ago History ~07/08/20 Potassium Chloride 20 meq PO QID 02/23/19 07/09/20 1 Day Ago History ~07/08/20 metOLazone [Metolazone] 2.5 mg PO QDAY 02/23/19 07/09/20 1 Day Ago History ~07/08/20 lisinopriL [Zestril TAB] 5 mg PO QDAY #30 tablet 02/24/19 07/09/20 1 Day Ago Rx ~07/08/20 Furosemide [Lasix TAB] 20 mg PO QDAY #30 tablet 10/04/19 07/09/20 1 Day Ago Rx ~07/08/20 bisacodyL [Dulcolax suppos] 10 mg [place] QDAY PRN #30 supp.rect 10/04/19 07/09/20 1 Day Ago Rx ~07/08/20 Aspirin EC [Ecotrin] 325 mg PO QDAY tablet 07/09/20 Unknown Rx Docusate Sodium [Colace CAP] 100 mg PO BID capsule 07/09/20 Unknown Rx Isosorbide Dinitrate [Isordil] 20 mg PO BID tablet 07/09/20 Unknown Rx Nitroglycerin [Nitrostat] 0.4 mg SL BID PRN 07/09/20 07/09/20 1 Day Ago History ~07/08/20 Ondansetron [Zofran ODT TAB] 4 mg PO Q6H PRN #30 tab.rapdis 07/13/20 Unknown Rx Albuterol Sulfate [Proventil Hfa] 2 puff IH 4XD #1 hfa.aer.ad 11/07/21 Unknown Rx guaiFENesin/DEXTROMETHORPHAN 1 tab PO BID #20 tab 11/07/21 Unknown Rx [Mucinex DM ER 600-30 mg TAB] methylPREDNISolone [Medrol 4MG 4 mg PO DAILY #1 tab.ds.pk 11/07/21 Unknown Rx DOSEPAK (21 tabs)] ED Physical Exam - General Limitations: No Limitations, Other (Pulse ox noted and normal by EMS) General appearance: alert, in no apparent distress - Head Head exam: Present: atraumatic, normocephalic - Eye Eye exam: Present: normal appearance, EOMI - ENT ENT exam: Present: normal orophraynx, normal external ear exam - Neck Neck exam: Present: normal inspection. Absent: meningismus - Respiratory Respiratory exam: Present: normal lung sounds bilaterally. Absent: respiratory distress - Cardiovascular Cardiovascular Exam: Present: regular rate, normal rhythm - GI/Abdominal GI/Abdominal exam: Present: soft. Absent: tenderness - Extremities Exam Extremities exam: Present: normal capillary refill. Absent: calf tenderness - Back Exam Back exam: Absent: CVA tenderness (R), CVA tenderness (L) - Neurological Exam Neurological exam: Present: alert, oriented X3, CN II-XII intact. Absent: motor sensory deficit - Psychiatric Psychiatric exam: Present: normal affect, normal mood - Skin Skin exam: Present: warm, dry ED Course Vital Signs 11/07/21 11/07/21 11/07/21 11:24 12:08 12:16 Temperature 99.1 F Pulse Rate 103 H 96 H Respiratory 16 12 Rate Blood Pressure 103/61 103/61 Blood Pressure 93/69 [Left] O2 Sat by Pulse 98 100 100 Oximetry 11/07/21 11/07/21 11/07/21 12:30 12:46 13:00 Temperature Pulse Rate 91 H 100 H 93 H Respiratory 19 12 24 Rate Blood Pressure 105/60 105/60 107/69 Blood Pressure [Left] O2 Sat by Pulse 99 99 97 Oximetry 11/07/21 11/07/21 11/07/21 13:16 13:30 13:46 Temperature Pulse Rate 90 92 H 98 H Respiratory 24 20 21 Rate Blood Pressure 107/69 109/76 109/76 Blood Pressure [Left] O2 Sat by Pulse 97 96 99 Oximetry - Reevaluation(s) Reevaluation #1: 11/07/21 11:25 EMS was met upon arrival. IV and labs were ordered. Patient likely has Covid. Old records reviewed. Reevaluation #2: 11/07/21 15:05 Labs are noted. X-ray was reviewed. Patient was discharged. ED Medical Decision Making - Lab Data Result diagrams: 11/07/21 12:18 11/07/21 12:18 rhythm strip: Normal sinus rhythm without ectopy. Monitor observe 10 seconds. - Radiology Data Radiology results: report reviewed - Medical Decision Making Patient presents secondary to URI symptoms associate with chest pain. She does have symptoms that are consistent with upper respiratory infection, likely coronavirus. We are not actively testing outpatient for coronavirus at this facility. Patient would not benefit from an emergency test. She can follow-up with outpatient testing. She certainly has no radiographic evidence of pneumonia or pneumothorax. She does not appear to have congestive heart failure. There is no evidence of STEMI or NSTEMI based on her presentation. I did not think her symptoms clinically represented ACS. Patient was treated symptomatically and discharged. She should quarantine at home. Critical Care Time: No Critical care attestation.: If time is entered above; I have spent that time in minutes in the direct care of this critically ill patient, excluding procedure time. ED Disposition Clinical Impression: Viral URI, Myalgia, Chest wall pain Disposition: HOME / SELF CARE / HOMELESS Is pt being admited?: No Condition: Stable Instructions: Nonspecific Chest Pain, Adult, Upper Respiratory Infection, Adult, Viral Respiratory Infection, [id number] Additional Instructions: Drink plenty water. Return for problems. Use Tylenol and ibuprofen for fevers. Follow-up with your regular doctor for recheck. Isolate at home for 7 days. Prescriptions: methylPREDNISolone [Medrol 4MG DOSEPAK (21 tabs)] 4 mg PO DAILY #1 tab.ds.pk guaiFENesin/DEXTROMETHORPHAN [Mucinex DM ER 600-30 mg TAB] 1 tab PO BID #20 tab Albuterol Sulfate [Proventil Hfa] 2 puff IH 4XD #1 hfa.aer.ad
--- NOTE | 2021-11-07 11:52 | XRay Report ---
CHEST 1 VIEW 11/07/2021 11:40 AM INDICATION / CLINICAL INFORMATION: cp. COMPARISON: 07/12/2020 FINDINGS: SUPPORT DEVICES: Stable, satisfactory device positioning. HEART / MEDIASTINUM: No significant abnormality. LUNGS / PLEURA: No significant pulmonary or pleural abnormality. No pneumothorax. ADDITIONAL FINDINGS: No significant additional findings. IMPRESSION: 1. No acute findings. Signer Name: Kodi Ashby DO Signed: 11/07/2021 11:47 AM Workstation Name: [employer]
[2021-11-07 12:51] LABS: Hematocrit 39.1 % (30.3-42.9); Hemoglobin 12.8 gm/dl (10.1-14.3); Mean Corpuscular HGB Conc 33 % (30-34); Mean Corpuscular Volume 96 fl (79-97); Platelet Count 188 K/mm3 (140-440); Red Blood Count 4.08 M/mm3 (3.65-5.03); Red Cell Distribution Width 12.9 % (13.2-15.2)
[2021-11-07] MEDS ORDERED: KETOROLAC 30 MG/1 ML INJ IV ONE (13:15)
[2021-11-07 13:23] LABS: C-Reactive Protein 1.3 mg/dL (0.00-1.30)
[2021-11-07 13:35] LABS: BUN/Creatinine Ratio 16; Blood Urea Nitrogen 11 mg/dL (7-17); Calcium 8.9 mg/dL (8.4-10.2); Hemolysis Index 23
[2021-11-07 15:54] VITALS: BP 128/79
--- NOTE | 2021-11-07 18:01 | Electrocardiograph Report ---
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
== END 2021-11-07 16:04 | disposition home or self-care (01) ==
LOC: ED 11:22
DX: J06.9 Acute upper respiratory infection, unspecified (principal); M79.10 Myalgia, unspecified site; R07.89 Other chest pain
CPT/HCPCS: 36415; 71045; 80048; 83615; 84145; 84484; 85027; 85379; 86140; 93005; 96365; 99284; J1885